=== PATIENT | male | born 1955 | race Caucasian/White ===

== ENCOUNTER 2018-06-04 14:08 | Outpatient (CLI) | payer OTHER | END 2018-06-04 14:09 | disposition critical access hospital (66) | LOC: EMS 14:08 | PROVIDERS: ATTEND Surgery | DX: M79.651 Pain in right thigh (principal); W18.30XA Fall on same level, unspecified, initial encounter; Z91.81 History of falling; Y92.039 Unspecified place in apartment as the place of occurrence of the external cause | CPT/HCPCS: A0425; A0429 ==

== ENCOUNTER 2018-06-04 14:30 | Emergency (ER) | payer OTHER ==
[2018-06-04 14:48] VITALS: BP 143/72
[2018-06-04] MEDS ORDERED: KETOROLAC 60 MG/2 ML VIAL IVP STA (14:59)
--- NOTE | 2018-06-04 15:04 | ED Physician Documentation ---
PD HPI Fall - Stated complaint Stated Complaint: GLF - Chief complaint Chief Complaint: Ext Problem - History obtained from History obtained from: Patient, EMS - History of Present Illness Mechanism of injury: Tripped Fall distance: Standing position Where injury occurred: Home Timing - onset: Today Injury(ies) location: Back, Right Lower Extremity Quality of pain: Pain Associated symptoms: No: LOC, AMS, Amnesia Symptoms improve with: Rest, Ice, Meds Worsens with: Movement, Palpation Contributing factors: No: Anticoagulated Similar symptoms before: Has not had sx before Recently seen: Clinic - Additional information Additional information: 63-year-old morbidly obese male with a injury he is off balance on a normal basis and uses a walker for mobilization. He has had a fall about 2-3 weeks ago at that time he was evaluated by his clinician at the [facility]. X-rays were done of the right hip. He has had another fall last night and again reinjured the right hip area today he has had a third fall and now is unable to walk secondary to pain in the right hip and right lower back. He states that he was not otherwise ill recently and he does state that he drinks quite a bit of water and he thinks that he has had an increase in the amount of time she is having to urinate. He denies any history of diabetes. Review of Systems Constitutional: denies: Fever Eyes: denies: Decreased vision Ears: denies: Ear pain Nose: denies: Congestion Throat: denies: Sore throat Cardiac: denies: Chest pain / pressure, Palpitations Respiratory: denies: Dyspnea, Cough GI: denies: Abdominal Pain, Nausea, Vomiting, Constipation, Diarrhea : reports: Frequency. denies: Dysuria Skin: denies: Rash Musculoskeletal: reports: Back pain, Extremity pain, Joint pain, Pain with weight bearing. denies: Neck pain, Joint swelling Neurologic: denies: Generalized weakness, Focal weakness, Numbness PD PAST MEDICAL HISTORY - Past Medical History Cardiovascular: None Respiratory: CPAP use Endocrine/Autoimmune: None GI: GERD : None HEENT: None Psych: None Musculoskeletal: Chronic back pain Derm: None - Past Surgical History Past Surgical History: Yes - Present Medications Home Medications: Ambulatory Orders Medication Instructions Recorded Confirmed Ibuprofen [Motrin] 400 mg PO Q6H PRN 01/31/14 01/31/14 Omeprazole [PriLOSEC] 20 mg PO DAILY 01/31/14 01/31/14 HYDROcod/ACETAM 5/325 [[place] 5/325] 1 - 2 ea PO Q6H PRN #15 tablet 06/04/18 - Allergies Allergies/Adverse Reactions: Allergies Allergy/AdvReac Type Severity Reaction Status Date / Time codeine Allergy Intermediate Unknown Verified 02/01/14 00:58 - Social History Does the pt smoke?: No Smoking Status: Never smoker Does the pt drink ETOH?: No Does the pt have substance abuse?: No - POLST Patient has POLST: Yes POLST Status: DNR PD ED PE NORMAL - Vitals Vital signs reviewed: Yes (hypertensive ) - General General: No acute distress, Well developed/nourished - HEENT HEENT: Atraumatic, PERRL, EOMI - Neck Neck: Supple, no meningeal sign - Cardiac Cardiac: RRR, No murmur - Respiratory Respiratory: No respiratory distress, Clear bilaterally - Abdomen Abdomen: Soft, Non tender, Other (obese) - Back Back: No CVA TTP, Other (There it tenderness to the paraspinous muscles of the lower right lumbar spine. ) - Derm Derm: Normal color, Warm and dry, No rash - Extremities Extremities: No deformity, No edema, Other (there is pain over the right trochanter and pain with movement of the hip joint with ) - Neuro Neuro: Alert and oriented X 3, system support developer 2-12 intact, No motor deficit, No sensory deficit, Normal speech Eye Opening: Spontaneous Motor: Obeys Commands Verbal: Oriented GCS Score: 15 - Psych Psych: Normal mood, Normal affect Results - Vitals Vitals: Vital Signs - 24 hr 06/04/18 14:44 Temperature 36.7 C Heart Rate 90 Respiratory 20 Rate Blood Pressure 143/72 H O2 Saturation 96 Oxygen O2 Source Room air - Labs Labs: Laboratory Tests 06/04/18 06/04/18 06/04/18 15:15 15:15 15:15 WBC 9.9 RBC 5.34 Hgb 15.2 Hct 45.4 MCV 84.9 MCH 28.4 MCHC 33.4 RDW 15.2 H Plt Count 234 MPV 8.0 Neut # (Auto) 6.5 Lymph # (Auto) 2.2 Quay # (Auto) 0.8 Eos # (Auto) 0.4 Baso # (Auto) 0.1 Absolute Nucleated RBC 0.00 Nucleated RBC % 0.0 Sodium 137 Potassium 3.8 Chloride 104 Carbon Dioxide 26 Anion Gap 7.0 BUN 11 Creatinine 1.1 Estimated GFR (MDRD) 67 L Glucose 152 H Calcium 8.8 Total Bilirubin 0.6 AST 19 ALT 16 Alkaline Phosphatase 78 Troponin I < 0.04 Total Protein 6.7 Albumin 3.5 Globulin 3.2 Albumin/Globulin Ratio 1.1 Lipase 25 Urine Color Urine Clarity Urine pH Ur Specific Luther Urine Protein Urine Glucose (UA) Urine Ketones Urine Occult Blood Urine Nitrite Urine Bilirubin Urine Urobilinogen Ur Leukocyte Esterase Ur Microscopic Review Urine Culture Comments 06/04/18 15:30 WBC RBC Hgb Hct MCV MCH MCHC RDW Plt Count MPV Neut # (Auto) Lymph # (Auto) Quay # (Auto) Eos # (Auto) Baso # (Auto) Absolute Nucleated RBC Nucleated RBC % Sodium Potassium Chloride Carbon Dioxide Anion Gap BUN Creatinine Estimated GFR (MDRD) Glucose Calcium Total Bilirubin AST ALT Alkaline Phosphatase Troponin I Total Protein Albumin Globulin Albumin/Globulin Ratio Lipase Urine Color YELLOW Urine Clarity CLEAR Urine pH 6.0 Ur Specific Luther <=1.005 Urine Protein NEGATIVE Urine Glucose (UA) NEGATIVE Urine Ketones NEGATIVE Urine Occult Blood TRACE-LYSE Urine Nitrite NEGATIVE Urine Bilirubin NEGATIVE Urine Urobilinogen 0.2 (NORMAL) Ur Leukocyte Esterase NEGATIVE Ur Microscopic Review NOT INDICATED Urine Culture Comments NOT INDICATED - Rads (name of study) right hip Radiology: Prelim report reviewed (Impression: No fracture or subluxation.), EMP read indepedently, See rad report lumbar spine Radiology: Prelim report reviewed (Impression: No fracture or subluxation of lumbar spine.), EMP read indepedently, See rad report PD MEDICAL DECISION MAKING - ED course Complexity details: reviewed old records, reviewed results, re-evaluated patient , considered differential, d/w patient, d/w family ED course: The patient has improvement with the use of toradal and he has no fractures of the lumbar spine or hip. He is able to stand, pivot and move without much pain. - Sepsis Event Vital Signs: Vital Signs - 24 hr 06/04/18 14:44 Temperature 36.7 C Heart Rate 90 Respiratory 20 Rate Blood Pressure 143/72 H O2 Saturation 96 Oxygen O2 Source Room air Departure - Departure Disposition: 01 Home, Self Care Clinical Impression: Lumbar contusion Qualifiers: Encounter type: initial encounter Qualified Code(s): S30.0XXA - Contusion of lower back and pelvis, initial encounter Contusion of right hip Qualifiers: Encounter type: initial encounter Qualified Code(s): S70.01XA - Contusion of right hip, initial encounter Condition: Stable Instructions: ED Sprain Strain Lumbar, ED Contusion Hip Follow-Up: Anna Cotter MD [Primary Care Provider] - Prescriptions: HYDROcod/ACETAM 5/325 [[place] 5/325] 1 - 2 ea PO Q6H PRN #15 tablet PRN Reason: Pain Discharge Date/Time: 06/04/18 17:45
[2018-06-04 15:21] LABS: BASOPHILS # (AUTO) 0.1 10^3/uL (0.0-0.1); BASOPHILS % (AUTO) 0.7 %; EOSINOPHILS # (AUTO) 0.4 10^3/uL (0.0-0.7); EOSINOPHILS % (AUTO) 3.6 %; HGB - HEMOGLOBIN 15.2 g/dL (14.0-18.0); LYMPHOCYTES # (AUTO) 2.2 10^3/uL (1.5-3.5); LYMPHOCYTES % (AUTO) 22.3 %; MEAN CORPUSCULAR HEMOGLOBIN 28.4 pg (27.0-31.0); MEAN CORPUSCULAR HGB CONC 33.4 g/dL (32.0-36.0); MEAN CORPUSCULAR VOLUME 84.9 fL (80.0-94.0); MONOCYTES # (AUTO) 0.8 10^3/uL (0.0-1.0); MONOCYTES % (AUTO) 8.3 %; NEUTROPHILS # (AUTO) 6.5 10^3/uL (1.5-6.6); NEUTROPHILS % (AUTO) 65.1 %; PLT - PLATELET COUNT 234 10^3/uL (130-450); RED BLOOD COUNT 5.34 10^6/uL (4.70-6.10); RED CELL DISTRIBUTION WIDTH 15.2 % (12.0-15.0); WHITE BLOOD COUNT 9.9 x10^3/uL (4.8-10.8)
[2018-06-04 15:34] LABS: ALBUMIN 3.5 g/dL (3.2-5.5); ALBUMIN/GLOBULIN RATIO 1.1 (1.0-2.2); BILIRUBIN,TOTAL 0.6 mg/dL (0.2-1.0); CALCIUM 8.8 mg/dL (8.5-10.3); CREATININE 1.1 mg/dL (0.6-1.2); TOTAL PROTEIN 6.7 g/dL (6.7-8.2)
[2018-06-04 15:37] LABS: BILIRUBIN,URINE NEGATIVE (NEGATIVE); GLUCOSE, URINE (UA) NEGATIVE (NEGATIVE); KETONES,URINE (UA) NEGATIVE (NEGATIVE); LEUKOCYTE ESTERASE, URINE NEGATIVE (NEGATIVE); NITRITE,URINE NEGATIVE (NEGATIVE); OCCULT BLOOD,URINE TRACE-LYSE (NEGATIVE); PROTEIN,URINE NEGATIVE (NEGATIVE); UROBILINOGEN,URINE 0.2 (NORMAL) E.U./dL (NORMAL)
[2018-06-04 15:40] LABS: CLARITY,URINE CLEAR (CLEAR)
--- NOTE | 2018-06-04 16:43 | XRAY Report ---
Procedure Date: 06/04/2018 Accession Number: [id number] / [id number] Procedure: XR - Lumbar Spine 2 View CPT Code: FULL RESULT: EXAM: LUMBOSACRAL SPINE RADIOGRAPHY EXAM DATE: 06/04/2018 04:22 PM. CLINICAL HISTORY: GLF right sided lumbar pain. COMPARISONS: None. TECHNIQUE: 2 views. FINDINGS: Alignment: Normal. No spondylolisthesis or scoliosis. Bones: Five [id number] lumbar vertebral bodies are present. Vertebral bodies appear normal in height. No fracture. Disks: There is mild disk height loss at L5-S1. There is mild disk osteophyte spurring. Facets: Satisfactory alignment. Sacroiliac Joints: Unremarkable. Soft Tissues: Normal. The visualized bowel gas pattern is normal. IMPRESSION: No fracture or subluxation of lumbar spine. RADIA
--- NOTE | 2018-06-04 16:50 | XRAY Report ---
Procedure Date: 06/04/2018 Accession Number: [id number] / [id number] Procedure: XR - Hip w/Pelvis 2-3V RT CPT Code: FULL RESULT: EXAM: RIGHT HIP AND PELVIS RADIOGRAPHY EXAM DATE: 06/04/2018 04:22 PM. HISTORY: GLF right hip pain. COMPARISONS: None. TECHNIQUE: 1 view of the pelvis and 1 view of the hip. FINDINGS: Bones: Normal. No fracture or bone lesion. Joints: The bilateral hip, pubis symphysis, and sacroiliac joints are preserved. Soft Tissues: Normal. No soft tissue swelling. IMPRESSION: No fracture or subluxation. RADIA
[2018-06-04] MEDS ORDERED: HYDROcod/ACET 5/325 Prepack 4 PO STA (17:42)
== END 2018-06-04 17:45 | disposition home or self-care (01) ==
LOC: EDUNIT# → SUPCPDRO 14:30 → ED 14:30
DX: S30.0XXA Contusion of lower back and pelvis, initial encounter (principal); S70.01XA Contusion of right hip, initial encounter; X50.9XXA Other and unspecified overexertion or strenuous movements or postures, initial encounter; Y93.E1 Activity, personal bathing and showering; Z91.81 History of falling
CPT/HCPCS: 36415; 72100; 80053; 81001; 81003; 83690; 84484; 85025; 87086; 96374; 99283

== ENCOUNTER 2019-04-06 09:10 | Emergency (ER) | payer MEDICARE ==
[2019-04-06 09:17] VITALS: BP 136/76
[2019-04-06] MEDS ORDERED: HYDROcod/ACETAM 5/325 MG TABLET PO STA (09:41)
[2019-04-06] MEDS ORDERED: AMOX/CLAV 875 MG/125 MG TABLET PO STA (09:41)
--- NOTE | 2019-04-06 09:44 | ED Physician Documentation ---
PD HPI HEENT - Stated complaint Stated Complaint: LT SIDE OF HEAD PAIN, FEVER - Chief complaint Chief Complaint: Heent - History obtained from History obtained from: Patient - History of Present Illness Timing - onset: How many days ago (3) Timing - duration: Days (3) Timing - details: Still present Location: Left ear Associated symptoms: Fever, Congestion, Swollen nodes, Facial swelling Similar symptoms before: Has not had sx before - Additional information Additional information: The patient is a 63-year-old male who presents with left earache and pain on the left side of his face starting 3 days ago, and getting progressively worse. He noticed a low-grade fever last night. He denies headache, toothache, or sore throat. He has noticed slight congestion. He denies history of similar symptoms in the past. Review of Systems Constitutional: reports: Fever Eyes: denies: Irritation Ears: reports: Ear pain (left) Nose: reports: Congestion Throat: denies: Sore throat Cardiac: denies: Chest pain / pressure Respiratory: denies: Dyspnea, Cough GI: denies: Abdominal Pain, Nausea, Vomiting Skin: denies: Rash Musculoskeletal: denies: Neck pain, Back pain Neurologic: denies: Headache PD PAST MEDICAL HISTORY - Past Medical History Cardiovascular: None Respiratory: CPAP use Endocrine/Autoimmune: None GI: GERD : None HEENT: None Psych: None Musculoskeletal: Chronic back pain Derm: None - Past Surgical History Past Surgical History: Yes - Present Medications Home Medications: Ambulatory Orders Medication Instructions Recorded Confirmed Ibuprofen [Motrin] 400 mg PO Q6H PRN 01/31/14 01/31/14 Omeprazole [PriLOSEC] 20 mg PO DAILY 01/31/14 01/31/14 HYDROcod/ACETAM 5/325 [[place] 5/325] 1 - 2 ea PO Q6H PRN #15 tablet 06/04/18 Amox/Clav 875/125 [Augmentin] 1 each PO Q12H #14 tablet 04/06/19 Hydrocodone/Acetaminophen 1 - 2 each PO Q6H PRN #12 tablet 04/06/19 [Hydrocodon-Acetaminophen 5-325] Neomycin/Polymyx/Hc Otic Drops 4 drops LEFTEAR TID #1 bottle 04/06/19 [Cortisporin Ear Susp] - Allergies Allergies/Adverse Reactions: Allergies Allergy/AdvReac Type Severity Reaction Status Date / Time codeine Allergy Intermediate Unknown Verified 04/06/19 09:17 - Social History Does the pt smoke?: No Smoking Status: Never smoker Does the pt drink ETOH?: No Does the pt have substance abuse?: No - POLST Patient has POLST: Yes POLST Status: DNR PD ED PE NORMAL - Vitals Vital signs reviewed: Yes (normal) - General General: Alert and oriented X 3, Well developed/nourished, Other (Obese.) - HEENT HEENT: Atraumatic, Pharynx benign, Other (There is purulence behind the left tympanic membrane with loss of landmarks. There is also purulent debris within the left external ear canal. Hearing ability on the left is diminished compared to the right. Dentures.) - Neck Neck: Supple, no meningeal sign, Other (Mildly enlarged anterior cervical nodes on the left.) - Cardiac Cardiac: RRR - Respiratory Respiratory: No respiratory distress, Clear bilaterally - Abdomen Abdomen: Soft, Non tender - Derm Derm: No rash - Neuro Neuro: Alert and oriented X 3, Normal speech Results - Vitals Vitals: Vital Signs - 24 hr 04/06/19 09:14 Temperature 35.3 C L Heart Rate 85 Respiratory 20 Rate Blood Pressure 136/76 H O2 Saturation 96 Oxygen O2 Source Room air PD MEDICAL DECISION MAKING - ED course Complexity details: considered differential, d/w patient, d/w family ED course: The patient's presentation is most consistent with acute left otitis media as well as left otitis externa. His presentation does not suggest meningitis or peritonsillar abscess. Treatment in the emergency department included administration of Augmentin 1 tablet orally and Vicodin 1 tablet orally. He is being discharged with prescriptions for Augmentin, Cortisporin otic suspension, and Vicodin, 12 tablets. 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 Departure - Departure Disposition: 01 Home, Self Care Clinical Impression: Acute left otitis media Left otitis externa Qualifiers: Otitis externa type: unspecified type Chronicity: acute Qualified Code(s): H60.502 - Unspecified acute noninfective otitis externa, left ear Condition: Stable Health Concerns: ear infection Plan of Treatment: Augmentin; cortisporin otic suspension. Care Goals: resolution of infection Assessment: see above Instructions: ED Otitis Media Acute Adult, ED Otitis Externa Follow-Up: [facility] [Provider Group] Izzy Cotter ARNP [Primary Care Provider] - Prescriptions: Amox/Clav 875/125 [Augmentin] 1 each PO Q12H #14 tablet Hydrocodone/Acetaminophen [Hydrocodon-Acetaminophen 5-325] 1 - 2 each PO Q6H PRN #12 tablet PRN Reason: pain Neomycin/Polymyx/Hc Otic Drops [Cortisporin Ear Susp] 4 drops LEFTEAR TID #1 bottle Comments: Take Augmentin twice daily as prescribed. Put Cortisporin otic suspension in your left ear canal 3 times daily as prescribed. You can use ibuprofen, up to 800 mg 3 times daily for anti-inflammatory effect. You can use Vicodin as prescribed if needed for pain. Follow-up with your primary physician within 2 weeks. Call to schedule an appointment. Return to the emergency department if you develop increasing pain, or otherwise worsening symptoms.
== END 2019-04-06 09:59 | disposition home or self-care (01) ==
LOC: ED 09:10
DX: H66.92 Otitis media, unspecified, left ear (principal); H60.502 Unspecified acute noninfective otitis externa, left ear
CPT/HCPCS: 99283; A9270

== ENCOUNTER 2021-08-06 11:03 | Outpatient (CLI) | payer OTHER | END 2021-08-06 11:04 | disposition critical access hospital (66) | LOC: EMS 11:03 | DX: U07.1 COVID-19 (principal) | CPT/HCPCS: A0425; A0429 ==

== ENCOUNTER 2021-08-06 11:29 | Inpatient (IN) | payer MEDICARE, OTHER ==
[2021-08-06] MEDS ORDERED: DEXAMETHASONE 10 MG/ML VIAL IVP STA (11:42)
--- NOTE | 2021-08-06 11:47 | ED Physician Documentation ---
History of Present Illness - Stated complaint Stated Complaint: C+/SOA - History obtained from History obtained from: Patient, EMS - Additonal information Additional information: Is a 66-year-old male who presents via EMS for shortness of breath. The patient Sick with viral type symptoms for approximately a week and several days ago tested positive for coronavirus. He had been doing okay up until yesterday when he started to feel dizzy and weak and have chest tightness. He states he is not had an appetite and not been able to eat for several days. He has some dizziness at baseline due to a prior traumatic brain injury though states this is much more substantial. He was feeling chest tightness and shortness of breath today so EMS was called. On arrival he was 68% on room air, they placed him on 6 L nasal cannula and he went up into the 80s, ultimately requiring a nonrebreather to maintain saturations greater than 90%. He is currently 94% on 15 L nonrebreather. History of traumatic brain injury and GERD. He is only on omeprazole and occasional Tylenol at home. He is not typically on home oxygen. History of lung disease, diabetes, hypertension, heart disease.He is vaccinated with the single dose [employer] vaccine. Review of Systems Constitutional: reports: Fever, Chills, Myalgias, Fatigue Eyes: reports: Reviewed and negative Ears: reports: Reviewed and negative Nose: reports: Reviewed and negative Throat: reports: Reviewed and negative Cardiac: reports: Chest pain / pressure. denies: Palpitations, Pedal edema, Calf pain Respiratory: reports: Dyspnea, Cough. denies: Hemoptysis, Wheezing GI: reports: Other (Loss of appetite). denies: Abdominal Pain, Abdominal Swelling, Nausea, Vomiting, Constipation, Diarrhea : reports: Reviewed and negative Skin: reports: Reviewed and negative Musculoskeletal: reports: Reviewed and negative Neurologic: reports: Reviewed and negative, Other (History of TBI stable) Psychiatric: reports: Reviewed and negative Endocrine: reports: Reviewed and negative Immunocompromised: reports: Reviewed and negative PD PAST MEDICAL HISTORY - Past Medical History Past Medical History: Yes Cardiovascular: None Respiratory: CPAP use Neuro: Head injury, Other (Dizziness) Endocrine/Autoimmune: None GI: GERD : None HEENT: None Psych: None Musculoskeletal: Chronic back pain Derm: None - Past Surgical History Past Surgical History: Yes - Present Medications Home Medications: Ambulatory Orders Medication Instructions Recorded Confirmed Ibuprofen [Motrin] 400 mg PO Q6H PRN 01/31/14 01/31/14 Omeprazole [PriLOSEC] 20 mg PO DAILY 01/31/14 01/31/14 HYDROcod/ACETAM 5/325 [[place] 5/325] 1 - 2 ea PO Q6H PRN #15 tablet 06/04/18 Amox/Clav 875/125 [Augmentin] 1 each PO Q12H #14 tablet 04/06/19 Hydrocodone/Acetaminophen 1 - 2 each PO Q6H PRN #12 tablet 04/06/19 [Hydrocodon-Acetaminophen 5-325] Neomycin/Polymyx/Hc Otic Drops 4 drops LEFTEAR TID #1 bottle 04/06/19 [Cortisporin Ear Susp] - Allergies Allergies/Adverse Reactions: Allergies Allergy/AdvReac Type Severity Reaction Status Date / Time codeine Allergy Intermediate Unknown Verified 08/06/21 11:46 - Social History Does the pt smoke?: No Smoking Status: Never smoker Does the pt drink ETOH?: No Does the pt have substance abuse?: No - POLST Patient has POLST: Yes POLST Status: DNR PD ED PE NORMAL - Vitals Vital signs reviewed: Yes - General General: Alert and oriented X 3, No acute distress, Well developed/nourished - HEENT HEENT: Atraumatic, Moist mucous membranes, Pharynx benign - Neck Neck: Supple, no meningeal sign, No JVD - Cardiac Cardiac: RRR, No murmur, No rub - Respiratory Respiratory: Clear bilaterally, Other (Patient mildly tachypneic on 15 L nonrebreather) - Abdomen Abdomen: Normal bowel sounds, Soft, Non tender, Non distended, Other - Derm Derm: Normal color, Warm and dry, No rash - Extremities Extremities: No deformity, No tenderness to palpate, Normal ROM s pain, No edema, No calf tenderness / cord - Neuro Neuro: Alert and oriented X 3, No motor deficit, No sensory deficit, Normal speech Eye Opening: Spontaneous Motor: Obeys Commands Verbal: Oriented GCS Score: 15 - Psych Psych: Normal mood, Normal affect Results - Vitals Vitals: Vital Signs - 24 hr 08/06/21 08/06/21 11:42 12:36 Temperature 36.9 C Heart Rate 85 78 Respiratory 25 H 32 H Rate Blood Pressure 127/62 120/62 O2 Saturation 92 91 L Oxygen O2 Source Room air Oxygen Flow Rate 15 - Labs Labs: Laboratory Tests 08/06/21 08/06/21 08/06/21 12:05 12:05 12:05 WBC 8.7 RBC 5.62 Hgb 15.8 Hct 48.0 MCV 85.4 MCH 28.1 MCHC 32.9 RDW 15.9 H Plt Count 211 MPV 10.9 Neut # (Auto) 7.4 H Lymph # (Auto) 0.9 L [place] # (Auto) 0.3 Eos # (Auto) 0.0 Baso # (Auto) 0.0 Absolute Nucleated RBC 0.00 Nucleated RBC % 0.0 D-Dimer Sodium 138 Potassium 3.6 Chloride 100 L Carbon Dioxide 25 Anion Gap 13.0 BUN 22 H Creatinine 1.3 H Estimated GFR (MDRD) 55 L Glucose 114 H Calcium 8.1 L Total Bilirubin 0.6 AST 132 H ALT 69 H Alkaline Phosphatase 97 Troponin I High Sens C-Reactive Protein 26.6 H B-Natriuretic Peptide 51 Total Protein 6.9 Albumin 3.0 L Globulin 3.9 Albumin/Globulin Ratio 0.8 L Lipase 35 08/06/21 08/06/21 12:05 12:05 WBC RBC Hgb Hct MCV MCH MCHC RDW Plt Count MPV Neut # (Auto) Lymph # (Auto) [place] # (Auto) Eos # (Auto) Baso # (Auto) Absolute Nucleated RBC Nucleated RBC % D-Dimer 273.5 H Sodium Potassium Chloride Carbon Dioxide Anion Gap BUN Creatinine Estimated GFR (MDRD) Glucose Calcium Total Bilirubin AST ALT Alkaline Phosphatase Troponin I High Sens 18.9 C-Reactive Protein B-Natriuretic Peptide Total Protein Albumin Globulin Albumin/Globulin Ratio Lipase PD MEDICAL DECISION MAKING - ED course Complexity details: reviewed results, re-evaluated patient, considered differential, d/w patient ED course: This is a 66-year-old male with past medical history of obesity, GERD and a prior traumatic brain injury who presents with known Covid infection. Is requiring 15 L nonrebreather to maintain a saturation greater than 94%. Labs are stable. Requires admission to the hospital. We have started him on Decadron 10 mg IV push. I discussed with pharmacist and remdesivir is started as an inpatient at this facility therefore will await loading dose until he is admitted. Patient kindly accepted by Dr. Nchotu. Departure - Departure Disposition: 66 [facility] DC/Xfer Clinical Impression: Pneumonia due to COVID-19 virus, Acute respiratory failure due to COVID-19
--- NOTE | 2021-08-06 12:02 | XRAY Report ---
PROCEDURE: Chest 1 View X-Ray INDICATIONS: chest pain TECHNIQUE: One view of the chest was acquired. COMPARISON: None FINDINGS: Surgical changes and devices: None. Lungs and pleura: There is blunting of bilateral costophrenic angles suggestive of small bilateral pl eural effusion. Extensive airspace opacities throughout bilateral lung avery are seen. No gross pneu mothorax. Mediastinum: Mediastinal contours appear normal. Heart size is normal. Bones and chest wall: No suspicious bony lesions. Overlying soft tissues appear unremarkable. IMPRESSION: Finding is suggestive of extensive bilateral pulmonary infiltrates likely from COVID-19 infection. Sm all bilateral pleural effusion. No pneumothorax. Reviewed by: Adriel El MD on 08/06/2021 12:00 PM PDT Approved by: Adriel El MD on 08/06/2021 12:00 PM PDT Station ID: [id number]
[2021-08-06 12:23] LABS: BASOPHILS % (AUTO) 0.1 %; EOSINOPHILS % (AUTO) 0.1 %; HGB - HEMOGLOBIN 15.8 g/dL (14.0-18.0); LYMPHOCYTES # (AUTO) 0.9 10^3/uL (1.5-3.5); LYMPHOCYTES % (AUTO) 10.7 %; MEAN CORPUSCULAR HEMOGLOBIN 28.1 pg (27.0-31.0); MEAN CORPUSCULAR HGB CONC 32.9 g/dL (32.0-36.0); MEAN CORPUSCULAR VOLUME 85.4 fL (80.0-94.0); MEAN PLATELET VOLUME 10.9 fL (7.4-11.4); MONOCYTES # (AUTO) 0.3 10^3/uL (0.0-1.0); MONOCYTES % (AUTO) 3.3 %; NEUTROPHILS # (AUTO) 7.4 10^3/uL (1.5-6.6); NEUTROPHILS % (AUTO) 85.5 %; PLT - PLATELET COUNT 211 10^3/uL (130-450); RED BLOOD COUNT 5.62 10^6/uL (4.70-6.10); RED CELL DISTRIBUTION WIDTH 15.9 % (12.0-15.0); WHITE BLOOD COUNT 8.7 x10^3/uL (4.8-10.8)
[2021-08-06 12:59] LABS: ALBUMIN/GLOBULIN RATIO 0.8 (1.0-2.2); BILIRUBIN,TOTAL 0.6 mg/dL (0.2-1.0); CALCIUM 8.1 mg/dL (8.5-10.3); CREATININE 1.3 mg/dL (0.6-1.2); CRP - C-REACTIVE PROTEIN 26.6 mg/dL (0-1.0); POTASSIUM 3.6 mmol/L (3.5-5.0); TOTAL PROTEIN 6.9 g/dL (6.7-8.2)
[2021-08-06] MEDS ORDERED: ACETAMINOPHEN 325 MG TABLET PO PRN (13:14)
[2021-08-06] MEDS ORDERED: ONDANSETRON 4 MG/2 ML VIAL IVP PRN (13:14)
--- NOTE | 2021-08-06 13:19 | HISTORY & PHYSICAL EXAMINATION ---
Chief Complaint - Chief Complaint Chief Complaint: dyspnea, weakness History of Present Illness - Ad[facility] - History Obtained From Records Reviewed: yes History obtained from: patient - History of Present Illness HPI Comment/Other: Patient is a 66-year-old morbidly obese male with medical history significant f or traumatic brain injury in the past who presented to the ED with complaint of dyspnea and weakness. He has been having symptoms consistent with COVID-19 infection. This include difficulty breathing, minimally productive cough, loss of smell, loss of taste and generalized weakness over the past 4-5 days. He finally came to the ED today because he was unable to get up from bed. He was vaccinated with Olu & Olu vaccine. He had been diagnosed with COVID-19 for a few days now. His is also sick with Covid at home. In the ED he required 15 L on a nonrebreather to maintain his oxygen around 92%. He had a chest x-ray done which showed Pulmonary infiltrates and small bilateral pleural effusion. He was presented for admission for further treatment. Upon arrival to the [facility] floor the patient's oxygen saturation was in the 70s despite 15 L of oxygen via Nonrebreather as a result he was immediately switched to high flow nasal cannula. History - Past Medical History Cardiovascular: reports: None Respiratory: reports: CPAP use Neuro: reports: CVA (dizziness as residual), Head injury, Other (Dizziness) Endocrine/Autoimmune: reports: None GI: reports: GERD : reports: None HEENT: reports: None Psych: reports: None Musculoskeletal: reports: Chronic back pain Derm: reports: None MRSA Hx?: Yes - Past Surgical History Ortho: reports: Shoulder arthroplasty (left. following a shrapnel injury), Other (due to left knee injury) - Family & Social History Family History Comment/Other: Patient does not know his biological family history because he is adopted. His 2 children are healthy. Living arrangement: At home Social History Notes: He does not consume alcohol, tobacco products or substances. He lives at home with his . He is not on a . - POLST Patient has POLST: Yes POLST Status: DNR Meds/Allgy - Home Medications Home Medications: Ambulatory Orders Medication Instructions Recorded Confirmed Omeprazole [PriLOSEC] 20 mg PO DAILY 01/31/14 01/31/14 - Allergies Allergies/Adverse Reactions: Allergies Allergy/AdvReac Type Severity Reaction Status Date / Time codeine Allergy Intermediate Unknown Verified 08/06/21 11:46 Review of Systems - Constitutional Constitutional: reports: Fever, Weakness - Eyes Eyes: denies: Pain - Ears, Nose & Throat Ears, Nose & Throat: denies: Ear pain, Sore throat - Cardiovascular Cariovascular: reports: Lightheadedness. denies: Chest pain, Edema - Respiratory Respiratory: reports: Cough, Sputum production, SOB at rest, SOB with exertion - Gastrointestinal Gastrointestinal: denies: Abdominal pain, Abdominal distention, Diarrhea, N ausea, Vomiting - Genitourinary Genitourinary: denies: Dysuria, Frequency, Urgency, Hematuria, Incontinence - Musculoskeletal Musculoskeletal: reports: Back pain (chronic) - Integumentary Integumentary: denies: Rash, Pruritis, Lesions - Neurological Neurological: reports: Dizziness (chronic) - Psychiatric Psychiatric: denies: Depression, Anxiety - Endocrine Endocrine: denies: Polyuria, Polydypsia - Hematologic/Lymphatic Hematologic/Lymphatic: denies: Anemia, Bruising Prior Level of Functionality: Patient is independent of activities of daily living. He gets around the house using a walker due to chronic dizziness from a traumatic brain injury. He lives at home with his . He is an [employer] - Vital Signs Vital Signs: Vital Signs x48h Temp Pulse Resp BP Pulse Ox 08/06/21 13:00 36.8 C 78 19 125/68 92 08/06/21 12:36 78 32 H 120/62 91 L 08/06/21 11:42 36.9 C 85 25 H 127/62 92 - Physical Exam General Appearance: positive: Alert, Mild distress (respiratory distress) Eyes Bilateral: positive: PERRL, EOMI ENT: positive: No signs of dehydration Neck: positive: No JVD, Trachea midline Respiratory: positive: Chest non-tender, Other (Bilateral crackles) Cardiovascular: positive: Regular rate & rhythm, No murmur Abdomen: positive: Non-tender, No organomegaly, Nml bowel sounds. negative: Guarding, Rebound Back: positive: Nml inspection Skin: positive: Color nml, No rash, Warm, Dry Extremities: positive: Non-tender, Full ROM, Nml appearance, No pedal edema Neurologic/Psychiatric: positive: Oriented x3, Mood/affect nml Conclusion/Plan - Problem List (1) Acute respiratory failure with hypoxia Conclusion/Plan: This is secondary to COVID-19 pneumonia. Patient is currently on high flow nasal cannula 60 L at 100%. Oxygen saturation is currently between 90 to 93%. He was given dexamethasone 10 mg IV x1 in the ED. We will continue dexamethasone 6 mg IV daily for 9 more days. Remdesivir was started today. We will continue for 4 more days. (2) Pneumonia due to COVID-19 virus Conclusion/Plan: Patient had the Olu & Olu vaccine Patient is currently on high flow nasal cannula 60 L at 100%. Oxygen saturation is currently between 90 to 93%. He was given dexamethasone 10 mg IV x1 in the ED. We will continue dexamethasone 6 mg IV daily for 9 more days. Remdesivir was started today. We will continue for 4 more days. Lovenox 40 mg subcu twice daily for DVT prophylaxis. (3) Acute kidney injury Conclusion/Plan: Etiology undetermined. Creatinine was 1.3 with eGFR of 55 Monitor. If elevated with morning labs will initiate gentle hydration. (4) Elevated liver enzymes Conclusion/Plan: Likely secondary to COVID-19 infection. AST was 132 and ALT 69. We will recheck with a.m. labs. If further elevated will consider getting an ultrasound of the abdomen. (5) Obstructive sleep apnea on CPAP Conclusion/Plan: Patient uses CPAP at home. (6) Chronic back pain Conclusion/Plan: Pain management as needed - Lab Results Fish Bones: 08/06/21 12:05 08/06/21 12:05 Core Measures - Anticipated LOS I expect patient to be DC'd or transferred within 96 hours.: Yes - DVT/VTE - Prophylaxis VTE/DVT Device ordered at admit?: Yes VTE/DVT Prophylaxis med ordered at admit?: Yes - Stroke - Rehab Assessment Rehab services assessment to be ordered?: Yes
[2021-08-06] MEDS ORDERED: REMDESIVIR 100MG VIAL 200 MG in SODIUM CHLORIDE 0.9% 250 ML IV ONE (16:00)
[2021-08-06] MEDS: SODIUM CHLORIDE FLUSH 0.9% 10 ML SYRINGE IVP SCH (16:30)
[2021-08-06] MEDS: ENOXAPARIN 40 MG/0.4 ML SYRINGE SUBQ SCH ×2 (17:22→21:11)
[2021-08-06] MEDS ORDERED: BENZOCAINE/MENTHOL LOZENGE MM PRN (17:29)
[2021-08-06] MEDS: guaiFENesin/DEXTROMETHORPHAN 10 ML UDC PO PRN (21:11)
[2021-08-07] MEDS: SODIUM CHLORIDE FLUSH 0.9% 10 ML SYRINGE IVP SCH ×7 (05:54→20:54)
[2021-08-07 07:07] LABS: BILIRUBIN,URINE NEGATIVE (NEGATIVE); GLUCOSE, URINE (UA) NEGATIVE (NEGATIVE); KETONES,URINE (UA) 15 mg/dL (NEGATIVE); LEUKOCYTE ESTERASE, URINE NEGATIVE (NEGATIVE); NITRITE,URINE NEGATIVE (NEGATIVE); OCCULT BLOOD,URINE SMALL (NEGATIVE); PROTEIN,URINE 100 mg/dL (NEGATIVE); UROBILINOGEN,URINE 1 (NORMAL) E.U./dL (NORMAL)
[2021-08-07 07:29] LABS: BACTERIA,URINE Few /HPF (None Seen); CLARITY,URINE CLEAR (CLEAR); SQUAMOUS EPITHELIAL CELL,UR RARE Squamous (<= Few); WBC,URINE 0-3 /HPF (0-3)
--- NOTE | 2021-08-07 07:54 | PROVIDER PROGRESS NOTE ---
Assessment/Plan - Problem List (1) Acute respiratory failure with hypoxia Assessment/Plan: This is secondary to COVID-19 pneumonia. Patient's oxygen saturation dropped precipitously overnight into the 60s. As a result he was moved to the ICU and placed on the BiPAP. He is currently on an FiO2 of 95% on the BiPAP with his oxygen saturation at 93%. Remdesivir day 2. Dexamethasone day 11/26 (2) Pneumonia due to COVID-19 virus Assessment/Plan: Patient's oxygen saturation dropped precipitously overnight into the 60s. As a result he was moved to the ICU and placed on the BiPAP. He is currently on an FiO2 of 95% on the BiPAP with his oxygen saturation at 93%. Remdesivir day 2. Dexamethasone day 11/26 Lovenox 40 mg subcu twice daily for DVT prophylaxis. (3) Acute kidney injury Assessment/Plan: Improved/Resolved. Creatinine today is 1.0 with an estimated GFR of 74 (4) Elevated liver enzymes Assessment/Plan: Improving Likely secondary to COVID-19 infection. AST:32>111 ALT:69>63 Anticipate further improvement (5) Obstructive sleep apnea on CPAP Assessment/Plan: Currently on bipap (6) Chronic back pain Assessment/Plan: Pain management as needed - Current Meds Current Meds: Current Medications Generic Name Dose Route Start Last Admin Trade Name Freq PRN Reason Stop Dose Admin Enoxaparin Sodium 40 mg 08/06/21 16:00 08/06/21 21:11 Enoxaparin 40 Mg/0.4 Ml Syringe SUBQ 40 mg BID SHAUN Administration Guaifenesin 10 ml 08/06/21 18:26 08/06/21 21:11 Guaifenesin/Dextromethorphan 10 Ml Udc PO 10 ml Q6HR PRN Administration Cough Sodium Chloride 10 ml 08/06/21 17:00 08/07/21 05:54 Sodium Chloride Flush 0.9% 10 Ml Syringe IVP Not Given 0100,0900,1700 SHAUN Sodium Chloride 10 ml 08/07/21 01:00 08/07/21 05:54 Sodium Chloride Flush 0.9% 10 Ml Syringe IVP 10 ml 0100,0900,1700 SHAUN Administration Throat Lozenges 1 lozenge 08/06/21 17:29 08/06/21 21:11 Benzocaine/Menthol Lozenge MM 1 lozenge Q2HR PRN Administration Throat pain - Lab Result Fish Bone Diagrams: 08/07/21 08:12 08/07/21 08:12 - Additional Planning My Orders: My Active Orders 08/06/21 13:14 IV Insert [RC] PRN Telemetry- [RC] Q4HR Acetaminophen [Tylenol] 650 mg PO Q4HR PRN Ondansetron Inj [Zofran Inj] 4 mg IVP Q6HR PRN Sodium Chloride Flush 0.9% [Normal Saline Flush 0.9%] 10 ml IVP PRN PRN 08/06/21 13:15 Activity Orders [RC] Q2HR Initiate Bowel Care Protocol [RC] .protocol Initiate Flu Vaccine Screening [RC] ONCE Initiate Line Care Protocol [RC] QSHIFT Initiate Personal Care Protoco [RC] .protocol Initiate Pneumonia Vaccine Scr [RC] ONCE Vital Signs [RC] Q4HR Code Status [OTHERS] Routine Condition of Patient [OTHERS] Routine DVT Prophylaxis [OTHERS] Routine 08/06/21 13:17 SCDs [RC] QSHIFT 08/06/21 16:00 Enoxaparin [Lovenox] 40 mg SUBQ BID 08/06/21 Dinner Regular Diet [DIET] 08/06/21 17:00 Sodium Chloride Flush 0.9% [Normal Saline Flush 0.9%] 10 ml IVP 0100,0900,1700 08/06/21 17:29 Benzocaine/Menthol [Cepacol] 1 lozenge MM Q2HR PRN 08/06/21 18:26 guaiFENesin/DEXTROMETHORPHAN [Robitussin Dm] 10 ml PO Q6HR PRN 08/07/21 05:00 CBC - COMP BLD CT W/AUTO DIFF [HEME] DAILYLAB COMPREHENSIVE METABOLIC PANEL [CHEM] DAILYLAB 08/07/21 09:00 Remdesivir 100Mg Vial [Veklury] 100 mg Sodium Chloride 0.9% 100Ml [Normal Saline 0.9% 100Ml] 100 ml IV DAILY dexAMETHasone [Decadron] 6 mg IVP DAILY 08/08/21 05:00 BMP - BASIC METABOLIC PANEL [CHEM] DAILYLAB CBC - COMP BLD CT W/AUTO DIFF [HEME] DAILYLAB 08/09/21 05:00 BMP - BASIC METABOLIC PANEL [CHEM] DAILYLAB CBC - COMP BLD CT W/AUTO DIFF [HEME] DAILYLAB 08/10/21 05:00 BMP - BASIC METABOLIC PANEL [CHEM] DAILYLAB CBC - COMP BLD CT W/AUTO DIFF [HEME] DAILYLAB 08/11/21 05:00 BMP - BASIC METABOLIC PANEL [CHEM] DAILYLAB CBC - COMP BLD CT W/AUTO DIFF [HEME] DAILYLAB 08/12/21 05:00 BMP - BASIC METABOLIC PANEL [CHEM] DAILYLAB CBC - COMP BLD CT W/AUTO DIFF [HEME] DAILYLAB 08/13/21 05:00 BMP - BASIC METABOLIC PANEL [CHEM] DAILYLAB CBC - COMP BLD CT W/AUTO DIFF [HEME] DAILYLAB 08/14/21 05:00 BMP - BASIC METABOLIC PANEL [CHEM] DAILYLAB Subjective - Subjective Patient Reports: Other (Patient became hypoxic with oxygen saturation dropping into the 60s overnight. As a result he was moved to the ICU and BiPAP was initiated. Currently he appears comfortable on BiPAP with mentation intact. He reports breathing better than at time of admission.) Objective Vital Signs: Vital Signs - 24 hr 08/06/21 08/06/21 08/06/21 11:42 12:36 13:00 Temperature 36.9 C 36.8 C Heart Rate 85 78 78 Heart Rate [ Brachial] Respiratory 25 H 32 H 19 Rate Blood Pressure 127/62 120/62 125/68 Blood Pressure [Left Brachial artery] Blood Pressure [Right Brachial artery] O2 Saturation 92 91 L 92 08/06/21 08/06/21 08/06/21 13:30 14:00 16:26 Temperature 36.9 C 37.7 C Heart Rate 79 79 Heart Rate [ 76 Brachial] Respiratory 20 25 H 21 Rate Blood Pressure 129/74 124/61 Blood Pressure [Left Brachial artery] Blood Pressure 98/75 [Right Brachial artery] O2 Saturation 89 L 89 L 93 08/06/21 08/07/21 08/07/21 20:56 00:22 02:10 Temperature 37 C 37 C Heart Rate 76 Heart Rate [ 80 81 Brachial] Respiratory 28 H 26 H Rate Blood Pressure Blood Pressure 124/61 [Left Brachial artery] Blood Pressure 144/86 H [Right Brachial artery] O2 Saturation 88 L 83 L 08/07/21 08/07/21 08/07/21 04:24 05:00 06:10 Temperature Heart Rate 76 70 Heart Rate [ 74 Brachial] Respiratory 23 Rate Blood Pressure Blood Pressure 105/65 [Left Brachial artery] Blood Pressure [Right Brachial artery] O2 Saturation 93 Oxygen O2 Source HHFNC Oxygen Flow Rate 15 I&O (Last 24 Hrs): Intake and Output Totals x24h 08/05/21 08/06/21 08/07/21 23:59 23:59 23:59 Intake Total 650 210 Output Total 350 475 Balance 300 -265 General: Alert, Oriented x3, Mild distress HEENT: PERRLA, EOMI Neck: No JVD Neuro: Alert, Oriented Times 3 Cardiovascular: Regular rate Respiratory: Chest non-tender, Other (Mild respiratory disttress. Coarse breath sounds) Abdomen: Normal bowel sounds, Soft, No tenderness, Other (obese abdomen) Extremities: No clubbing, No cyanosis, No edema Skin: No rashes, No breakdown - Results Results: Laboratory Results WBC 8.7 x10^3/uL (4.8-10.8) 08/06/21 12:05 RBC 5.62 10^6/uL (4.70-6.10) 08/06/21 12:05 Hgb 15.8 g/dL (14.0-18.0) 08/06/21 12:05 Hct 48.0 % (42.0-52.0) 08/06/21 12:05 MCV 85.4 fL (80.0-94.0) 08/06/21 12:05 MCH 28.1 pg (27.0-31.0) 08/06/21 12:05 MCHC 32.9 g/dL (32.0-36.0) 08/06/21 12:05 RDW 15.9 % (12.0-15.0) H 08/06/21 12:05 Plt Count 211 10^3/uL (130-450) 08/06/21 12:05 MPV 10.9 fL (7.4-11.4) 08/06/21 12:05 Neut # (Auto) 7.4 10^3/uL (1.5-6.6) H 08/06/21 12:05 Lymph # (Auto) 0.9 10^3/uL (1.5-3.5) L 08/06/21 12:05 [place]uckolls # (Auto) 0.3 10^3/uL (0.0-1.0) 08/06/21 12:05 Eos # (Auto) 0.0 10^3/uL (0.0-0.7) 08/06/21 12:05 Baso # (Auto) 0.0 10^3/uL (0.0-0.1) 08/06/21 12:05 Absolute Nucleated RBC 0.00 x10^3/uL 08/06/21 12:05 Nucleated RBC % 0.0 /100WBC 08/06/21 12:05 D-Dimer 273.5 ng/mL (200.0-255.0) H 08/06/21 12:05 Sodium 138 mmol/L (135-145) 08/06/21 12:05 Potassium 3.6 mmol/L (3.5-5.0) 08/06/21 12:05 Chloride 100 mmol/L (101-111) L 08/06/21 12:05 Carbon Dioxide 25 mmol/L (21-32) 08/06/21 12:05 Anion Gap 13.0 (6-13) 08/06/21 12:05 BUN 22 mg/dL (6-20) H 08/06/21 12:05 Creatinine 1.3 mg/dL (0.6-1.2) H 08/06/21 12:05 Estimated GFR (MDRD) 55 (>89) L 08/06/21 12:05 Glucose 114 mg/dL (70-100) H 08/06/21 12:05 Calcium 8.1 mg/dL (8.5-10.3) L 08/06/21 12:05 Total Bilirubin 0.6 mg/dL (0.2-1.0) 08/06/21 12:05 AST 132 IU/L (10-42) H 08/06/21 12:05 ALT 69 IU/L (10-60) H 08/06/21 12:05 Alkaline Phosphatase 97 IU/L (42-121) 08/06/21 12:05 Troponin I High Sens 18.9 ng/L (2.3-19.7) 08/06/21 12:05 C-Reactive Protein 26.6 mg/dL (0-1.0) H 08/06/21 12:05 B-Natriuretic Peptide 51 pg/mL (5-100) 08/06/21 12:05 Total Protein 6.9 g/dL (6.7-8.2) 08/06/21 12:05 Albumin 3.0 g/dL (3.2-5.5) L 08/06/21 12:05 Globulin 3.9 g/dL (2.1-4.2) 08/06/21 12:05 Albumin/Globulin Ratio 0.8 (1.0-2.2) L 08/06/21 12:05 Lipase 35 U/L (22-51) 08/06/21 12:05 Urine Color DARK YELLOW 08/07/21 05:50 Urine Clarity CLEAR (CLEAR) 08/07/21 05:50 Urine pH 6.0 PH (5.0-7.5) 08/07/21 05:50 Ur Specific [place] 1.025 (1.002-1.030) 08/07/21 05:50 Urine Protein 100 mg/dL (NEGATIVE) H 08/07/21 05:50 Urine Glucose (UA) NEGATIVE mg/dL (NEGATIVE) 08/07/21 05:50 Urine Ketones 15 mg/dL (NEGATIVE) H 08/07/21 05:50 Urine Occult Blood SMALL (NEGATIVE) H 08/07/21 05:50 Urine Nitrite NEGATIVE (NEGATIVE) 08/07/21 05:50 Urine Bilirubin NEGATIVE (NEGATIVE) 08/07/21 05:50 Urine Urobilinogen 1 (NORMAL) E.U./dL (NORMAL) 08/07/21 05:50 Ur Leukocyte Esterase NEGATIVE (NEGATIVE) 08/07/21 05:50 Urine RBC 6-10 /HPF (0-5) H 08/07/21 05:50 Urine WBC 0-3 /HPF (0-3) 08/07/21 05:50 Ur Squamous Epith Cells RARE Squamous (<= Few) 08/07/21 05:50 Urine Bacteria Few /HPF (None Seen) 08/07/21 05:50 Urine Culture Comments NOT INDICATED 08/07/21 05:50 Nasal Screen MRSA (PCR) NEGATIVE (NEGATIVE) 08/07/21 01:46 ABX Reporting Has patient been on IV antibiotics over the past 48 hours?: No
[2021-08-07 08:28] LABS: BASOPHILS % (AUTO) 0.2 %; HCT - HEMATOCRIT 49.1 % (42.0-52.0); HGB - HEMOGLOBIN 15.9 g/dL (14.0-18.0); LYMPHOCYTES % (AUTO) 9.4 %; MEAN CORPUSCULAR HEMOGLOBIN 27.9 pg (27.0-31.0); MEAN CORPUSCULAR HGB CONC 32.4 g/dL (32.0-36.0); MEAN CORPUSCULAR VOLUME 86.3 fL (80.0-94.0); MEAN PLATELET VOLUME 11.2 fL (7.4-11.4); MONOCYTES # (AUTO) 0.5 10^3/uL (0.0-1.0); MONOCYTES % (AUTO) 4.8 %; NEUTROPHILS # (AUTO) 8.8 10^3/uL (1.5-6.6); NEUTROPHILS % (AUTO) 84.9 %; PLT - PLATELET COUNT 254 10^3/uL (130-450); RED BLOOD COUNT 5.69 10^6/uL (4.70-6.10); WHITE BLOOD COUNT 10.3 x10^3/uL (4.8-10.8)
[2021-08-07 08:57] LABS: ALBUMIN 2.9 g/dL (3.2-5.5); ALBUMIN/GLOBULIN RATIO 0.7 (1.0-2.2); BILIRUBIN,TOTAL 0.6 mg/dL (0.2-1.0); CALCIUM 8.4 mg/dL (8.5-10.3); POTASSIUM 3.8 mmol/L (3.5-5.0); TOTAL PROTEIN 6.9 g/dL (6.7-8.2)
[2021-08-07] MEDS ORDERED: ENOXAPARIN 40 MG/0.4 ML SYRINGE SUBQ SCH (09:00)
[2021-08-07] MEDS ORDERED: REMDESIVIR 100MG VIAL 100 MG in SODIUM CHLORIDE 0.9% 100ML 100 ML IV SCH (09:00)
--- NOTE | 2021-08-07 09:02 | PHARMACY PROGRESS NOTE ---
- Best Possible Medication History Admit Date and Time: 08/06/21 1315 Processed by: Nursing Patient Interview: Completed ([facility] completed by nursing) As the person ultimately responsible for medication therapy, providers are able to order a medication from an existing home medication list in [facility] via the "Reconcile Routine" prior to Confirmation of that medication by decision support analyst. Such practice is discouraged except when the physician, in their clinical judgment, deems that a medical need exists for a medication without regard to previous use.
[2021-08-07] MEDS: DEXAMETHASONE 4 MG/ML VIAL IVP SCH (10:02)
[2021-08-07] MEDS: ENOXAPARIN 40 MG/0.4 ML SYRINGE SUBQ SCH ×2 (10:02→20:53)
[2021-08-07] MEDS: CHOLECALCIFEROL 5,000 UNIT CAPSULE PO SCH (13:43)
[2021-08-07] MEDS: ASCORBIC ACID 500 MG TABLET PO SCH (13:43)
[2021-08-07] MEDS: ZINC SULFATE 220 MG CAPSULE PO SCH (13:44)
[2021-08-07] MEDS ORDERED: INSULIN ASPART 300 UNIT/3 ML PEN SUBQ SCH (17:00)
[2021-08-08 06:36] LABS: BASOPHILS % (AUTO) 0.1 %; EOSINOPHILS % (AUTO) 0.1 %; HGB - HEMOGLOBIN 15.2 g/dL (14.0-18.0); LYMPHOCYTES # (AUTO) 0.9 10^3/uL (1.5-3.5); LYMPHOCYTES % (AUTO) 10.1 %; MEAN CORPUSCULAR HEMOGLOBIN 27.7 pg (27.0-31.0); MEAN CORPUSCULAR HGB CONC 32.3 g/dL (32.0-36.0); MEAN CORPUSCULAR VOLUME 85.6 fL (80.0-94.0); MEAN PLATELET VOLUME 11.4 fL (7.4-11.4); MONOCYTES % (AUTO) 11.2 %; NEUTROPHILS # (AUTO) 7.1 10^3/uL (1.5-6.6); NEUTROPHILS % (AUTO) 77.6 %; PLT - PLATELET COUNT 325 10^3/uL (130-450); RED BLOOD COUNT 5.49 10^6/uL (4.70-6.10); RED CELL DISTRIBUTION WIDTH 15.5 % (12.0-15.0); WHITE BLOOD COUNT 9.1 x10^3/uL (4.8-10.8)
[2021-08-08 06:44] LABS: CALCIUM 8.3 mg/dL (8.5-10.3); POTASSIUM 3.8 mmol/L (3.5-5.0)
[2021-08-08 07:04] LABS: MAGNESIUM 2.5 mg/dL (1.7-2.8); PHOSPHORUS 2.1 mg/dL (2.5-4.6)
[2021-08-08 08:13] LABS: ABG BASE EXCESS 2.9 mmol/L (-2.0-3.0); ABG HCO3 25.7 mmol/L (22.0-26.0); ABG PCO2 34 mmHg (34-45); ABG PH 7.49 (7.35-7.45); ABG PO2 59 mmHg (80-100); ABG TCO2 26.7 MMOL/L (21.0-29.0)
[2021-08-08 08:14] LABS: ABG MODE OF VENTILATION SPON; ABG OXYGEN SATURATION 93 % (94-98); ALLEN TEST POSITIVE
[2021-08-08] MEDS: SODIUM CHLORIDE FLUSH 0.9% 10 ML SYRINGE IVP SCH ×6 (09:00→20:54)
[2021-08-08] MEDS: SENNA 8.6 MG TABLET PO SCH (09:02)
[2021-08-08] MEDS: ASCORBIC ACID 500 MG TABLET PO SCH (09:03)
[2021-08-08] MEDS: NEUTRA-PHOS 250 MG TABLET PO SCH ×2 (09:03→11:29)
[2021-08-08] MEDS: CHOLECALCIFEROL 5,000 UNIT CAPSULE PO SCH (09:03)
[2021-08-08] MEDS: REMDESIVIR 100MG VIAL 100 MG in SODIUM CHLORIDE 0.9% 250 ML IV SCH (09:03)
[2021-08-08] MEDS: polyethylene glycoL 3350 17 GM PACKET PO SCH (09:03)
[2021-08-08] MEDS: ZINC SULFATE 220 MG CAPSULE PO SCH (09:03)
[2021-08-08] MEDS: ENOXAPARIN 40 MG/0.4 ML SYRINGE SUBQ SCH ×2 (09:04→20:48)
[2021-08-08] MEDS: DEXAMETHASONE 4 MG/ML VIAL IVP SCH (09:04)
[2021-08-08] MEDS: DOCUSATE SODIUM 250 MG CAPSULE PO SCH (09:04)
[2021-08-08] MEDS: guaiFENesin/DEXTROMETHORPHAN 10 ML UDC PO PRN (09:05)
[2021-08-08] MEDS: MORPHINE 2 MG/ML CARPUJECT IVP PRN ×3 (14:07→20:54)
--- NOTE | 2021-08-08 16:11 | PROVIDER PROGRESS NOTE ---
Assessment/Plan - Problem List (1) Acute respiratory failure with hypoxia Assessment/Plan: This is secondary to COVID-19 pneumonia. He is currently on an FiO2 of 100% on the BiPAP with his oxygen saturation at 93-96%. ABG showed pH 7.49, PCO2 34, PO2 59, HCO3 25.7 Remdesivir day 3/. Dexamethasone day 12/24 (2) Pneumonia due to COVID-19 virus Assessment/Plan: He is currently on an FiO2 of 100% on the BiPAP with his oxygen saturation at 93-96%. Remdesivir day 3. Dexamethasone day 12/24 Lovenox 40 mg subcu twice daily for DVT prophylaxis. (3) Acute kidney injury Assessment/Plan: Improved/Resolved. Creatinine today is 1.0 with an estimated GFR of 74 (4) Elevated liver enzymes Assessment/Plan: Improving Likely secondary to COVID-19 infection. AST:32>111 ALT:69>63 Anticipate further improvement (5) Obstructive sleep apnea on CPAP Assessment/Plan: Currently on bipap (6) Chronic back pain Assessment/Plan: Pain management as needed - Current Meds Current Meds: Current Medications Generic Name Dose Route Start Last Admin Trade Name Freq PRN Reason Stop Dose Admin Ascorbic Acid 500 mg 08/07/21 11:00 08/08/21 09:03 Ascorbic Acid 500 Mg Tablet PO 500 mg DAILY SHAUN Administration Cholecalciferol 5,000 unit 08/07/21 11:00 08/08/21 09:03 Cholecalciferol 5,000 Unit Capsule PO 08/16/21 09:01 5,000 unit DAILY SHAUN Administration Dexamethasone 6 mg 08/07/21 09:00 08/08/21 09:04 Dexamethasone 4 Mg/Ml Vial IVP 08/15/21 09:01 6 mg DAILY SHAUN Administration Docusate Sodium 250 - 500 mg 08/08/21 09:00 08/08/21 09:04 Docusate Sodium 250 Mg Capsule PO 250 mg DAILY SHAUN Administration Enoxaparin Sodium 40 mg 08/06/21 16:00 08/08/21 09:04 Enoxaparin 40 Mg/0.4 Ml Syringe SUBQ 40 mg BID SHAUN Administration Guaifenesin 10 ml 08/06/21 18:26 08/08/21 09:05 Guaifenesin/Dextromethorphan 10 Ml Udc PO 10 ml Q6HR PRN Administration Cough Remdesivir 100 mg/ Sodium 250 mls @ 200 mls/hr 08/08/21 09:00 08/08/21 10:25 Chloride IV 08/10/21 10:14 Infused DAILY SHAUN Infusion Morphine Sulfate 2 mg 08/08/21 12:32 08/08/21 14:07 Morphine 2 Mg/Ml Carpuject IVP 2 mg Q6HR PRN Administration PAIN Polyethylene Glycol 17 gm 08/08/21 09:00 08/08/21 09:03 Polyethylene Glycol 3350 17 Gm Packet PO 17 gm DAILY SHAUN Administration Senna 8.6 - 17.2 mg 08/08/21 09:00 08/08/21 09:02 Senna 8.6 Mg Tablet PO 8.6 mg DAILY SHAUN Administration Sodium Chloride 10 ml 08/06/21 17:00 08/08/21 09:04 Sodium Chloride Flush 0.9% 10 Ml Syringe IVP 10 ml 0100,0900,1700 SHAUN Administration Sodium Chloride 10 ml 08/07/21 01:00 08/08/21 09:05 Sodium Chloride Flush 0.9% 10 Ml Syringe IVP 10 ml 0100,0900,1700 SHAUN Administration Throat Lozenges 1 lozenge 08/06/21 17:29 08/06/21 21:11 Benzocaine/Menthol Lozenge MM 1 lozenge Q2HR PRN Administration Throat pain Zinc Sulfate 220 mg 08/07/21 11:00 08/08/21 09:03 Zinc Sulfate 220 Mg Capsule PO 08/11/21 09:01 220 mg DAILY SHAUN Administration - Lab Result Fish Bone Diagrams: 08/08/21 05:25 08/08/21 05:25 - Additional Planning My Orders: My Active Orders 08/08/21 07:30 RT - Obtain Arterial Specimen [RC] .ONCE 08/08/21 09:00 Docusate Sodium 250Mg Capsule [Colace 250Mg Capsule] 250 - 500 mg PO DAILY Remdesivir 100Mg Vial [Veklury] 100 mg Sodium Chloride 0.9% [Normal Saline 0.9%] 250 ml IV DAILY Senna [Senokot] 8.6 - 17.2 mg PO DAILY polyethylene glycoL 3350 [Miralax] 17 gm PO DAILY 08/08/21 12:32 LORazepam [Ativan] 0.5 mg PO Q6H PRN Morphine Inj (Carpuject) [Morphine (Carpuject)] 2 mg IVP Q6HR PRN 08/09/21 05:00 BMP - BASIC METABOLIC PANEL [CHEM] DAILYLAB CBC - COMP BLD CT W/AUTO DIFF [HEME] DAILYLAB 08/10/21 05:00 BMP - BASIC METABOLIC PANEL [CHEM] DAILYLAB CBC - COMP BLD CT W/AUTO DIFF [HEME] DAILYLAB 08/11/21 05:00 BMP - BASIC METABOLIC PANEL [CHEM] DAILYLAB CBC - COMP BLD CT W/AUTO DIFF [HEME] DAILYLAB 08/12/21 05:00 BMP - BASIC METABOLIC PANEL [CHEM] DAILYLAB CBC - COMP BLD CT W/AUTO DIFF [HEME] DAILYLAB 08/13/21 05:00 BMP - BASIC METABOLIC PANEL [CHEM] DAILYLAB CBC - COMP BLD CT W/AUTO DIFF [HEME] DAILYLAB 08/14/21 05:00 BMP - BASIC METABOLIC PANEL [CHEM] DAILYLAB Subjective - Subjective Patient Reports: Other (Sitting comfortably in bed. Reported no change in his respiratory status compared to the previous day. However he is significantly more tachypneic with respiratory rates between 30 and 40. On an FiO2 of 100% on the BiPAP with oxygen saturation between 93 and 96%. He denied any other complaint) Objective Vital Signs: Vital Signs - 24 hr 08/07/21 08/07/21 08/07/21 17:00 19:20 21:00 Temperature 37.3 C 37.2 C Heart Rate 68 Heart Rate [ 73 73 Brachial] Respiratory 30 H 34 H Rate Blood Pressure 121/65 128/70 [Left Brachial artery] Blood Pressure [Right Brachial artery] O2 Saturation 94 89 L 08/07/21 08/07/21 08/08/21 21:50 23:37 00:20 Temperature Heart Rate 76 62 Heart Rate [ 74 Brachial] Respiratory 34 H Rate Blood Pressure 124/97 H [Left Brachial artery] Blood Pressure [Right Brachial artery] O2 Saturation 87 L 08/08/21 08/08/21 08/08/21 03:10 03:32 05:40 Temperature 37.2 C Heart Rate 69 67 Heart Rate [ 70 Brachial] Respiratory 39 H Rate Blood Pressure 136/75 H [Left Brachial artery] Blood Pressure [Right Brachial artery] O2 Saturation 88 L 08/08/21 08/08/21 08/08/21 09:00 09:15 11:44 Temperature 37 C Heart Rate 78 67 Heart Rate [ 69 Brachial] Respiratory 27 H Rate Blood Pressure 120/74 [Left Brachial artery] Blood Pressure [Right Brachial artery] O2 Saturation 93 08/08/21 08/08/21 12:59 15:26 Temperature 36.5 C Heart Rate 63 Heart Rate [ Brachial] Respiratory 25 H Rate Blood Pressure [Left Brachial artery] Blood Pressure 125/77 [Right Brachial artery] O2 Saturation 92 Oxygen O2 Source BIPAP Oxygen Flow Rate 15 I&O (Last 24 Hrs): Intake and Output Totals x24h 08/06/21 08/07/21 08/08/21 23:59 23:59 23:59 Intake Total 650 1700 1200 Output Total 350 1325 650 Balance 300 375 550 General: Alert, Oriented x3, Mild distress HEENT: PERRLA, EOMI Neck: Supple, No JVD Neuro: Alert, Oriented Times 3 Cardiovascular: Regular rate, Normal S1, Normal S2 Respiratory: Chest non-tender, Other (Mild dyspnea, Tachypnea, Coarse breath sounds) Extremities: No clubbing, No cyanosis, No edema Skin: No rashes, No breakdown, No significant lesion - Results Results: Laboratory Results WBC 9.1 x10^3/uL (4.8-10.8) 08/08/21 05:25 RBC 5.49 10^6/uL (4.70-6.10) 08/08/21 05:25 Hgb 15.2 g/dL (14.0-18.0) 08/08/21 05:25 Hct 47.0 % (42.0-52.0) 08/08/21 05:25 MCV 85.6 fL (80.0-94.0) 08/08/21 05:25 MCH 27.7 pg (27.0-31.0) 08/08/21 05:25 MCHC 32.3 g/dL (32.0-36.0) 08/08/21 05:25 RDW 15.5 % (12.0-15.0) H 08/08/21 05:25 Plt Count 325 10^3/uL (130-450) 08/08/21 05:25 MPV 11.4 fL (7.4-11.4) 08/08/21 05:25 Neut # (Auto) 7.1 10^3/uL (1.5-6.6) H 08/08/21 05:25 Lymph # (Auto) 0.9 10^3/uL (1.5-3.5) L 08/08/21 05:25 [place] # (Auto) 1.0 10^3/uL (0.0-1.0) 08/08/21 05:25 Eos # (Auto) 0.0 10^3/uL (0.0-0.7) 08/08/21 05:25 Baso # (Auto) 0.0 10^3/uL (0.0-0.1) 08/08/21 05:25 Absolute Nucleated RBC 0.00 x10^3/uL 08/08/21 05:25 Nucleated RBC % 0.0 /100WBC 08/08/21 05:25 D-Dimer 273.5 ng/mL (200.0-255.0) H 08/06/21 12:05 Bld Gas Analysis Time 0803 08/08/21 08:03 Sample Site LEFT RADIAL 08/08/21 08:03 ABG pH 7.49 (7.35-7.45) H 08/08/21 08:03 ABG pCO2 34 mmHg (34-45) 08/08/21 08:03 ABG pO2 59 mmHg (80-100) L 08/08/21 08:03 ABG HCO3 25.7 mmol/L (22.0-26.0) 08/08/21 08:03 ABG Total CO2 26.7 MMOL/L (21.0-29.0) 08/08/21 08:03 ABG O2 Saturation 93 % (94-98) L 08/08/21 08:03 ABG Base Excess 2.9 mmol/L (-2.0-3.0) 08/08/21 08:03 Benny Test POSITIVE 08/08/21 08:03 O2 Delivery Device VENTILATOR 08/08/21 08:03 Vent Mode SPON 08/08/21 08:03 FiO2 100.00 08/08/21 08:03 EPAP 8 cmH2O 08/08/21 08:03 IPAP 16 cmH2O 08/08/21 08:03 Sodium 140 mmol/L (135-145) 08/08/21 05:25 Potassium 3.8 mmol/L (3.5-5.0) 08/08/21 05:25 Chloride 102 mmol/L (101-111) 08/08/21 05:25 Carbon Dioxide 26 mmol/L (21-32) 08/08/21 05:25 Anion Gap 12.0 (6-13) 08/08/21 05:25 BUN 31 mg/dL (6-20) H 08/08/21 05:25 Creatinine 1.0 mg/dL (0.6-1.2) 08/08/21 05:25 Estimated GFR (MDRD) 74 (>89) L 08/08/21 05:25 Glucose 135 mg/dL (70-100) H 08/08/21 05:25 Calcium 8.3 mg/dL (8.5-10.3) L 08/08/21 05:25 Phosphorus 2.1 mg/dL (2.5-4.6) L 08/08/21 05:25 Magnesium 2.5 mg/dL (1.7-2.8) 08/08/21 05:25 Total Bilirubin 0.6 mg/dL (0.2-1.0) 08/07/21 08:12 AST 111 IU/L (10-42) H 08/07/21 08:12 ALT 63 IU/L (10-60) H 08/07/21 08:12 Alkaline Phosphatase 98 IU/L (42-121) 08/07/21 08:12 Troponin I High Sens 18.9 ng/L (2.3-19.7) 08/06/21 12:05 C-Reactive Protein 26.6 mg/dL (0-1.0) H 08/06/21 12:05 B-Natriuretic Peptide 51 pg/mL (5-100) 08/06/21 12:05 Total Protein 6.9 g/dL (6.7-8.2) 08/07/21 08:12 Albumin 2.9 g/dL (3.2-5.5) L 08/07/21 08:12 Globulin 4.0 g/dL (2.1-4.2) 08/07/21 08:12 Albumin/Globulin Ratio 0.7 (1.0-2.2) L 08/07/21 08:12 Lipase 35 U/L (22-51) 08/06/21 12:05 Urine Color DARK YELLOW 08/07/21 05:50 Urine Clarity CLEAR (CLEAR) 08/07/21 05:50 Urine pH 6.0 PH (5.0-7.5) 08/07/21 05:50 Ur Specific [place] 1.025 (1.002-1.030) 08/07/21 05:50 Urine Protein 100 mg/dL (NEGATIVE) H 08/07/21 05:50 Urine Glucose (UA) NEGATIVE mg/dL (NEGATIVE) 08/07/21 05:50 Urine Ketones 15 mg/dL (NEGATIVE) H 08/07/21 05:50 Urine Occult Blood SMALL (NEGATIVE) H 08/07/21 05:50 Urine Nitrite NEGATIVE (NEGATIVE) 08/07/21 05:50 Urine Bilirubin NEGATIVE (NEGATIVE) 08/07/21 05:50 Urine Urobilinogen 1 (NORMAL) E.U./dL (NORMAL) 08/07/21 05:50 Ur Leukocyte Esterase NEGATIVE (NEGATIVE) 08/07/21 05:50 Urine RBC 6-10 /HPF (0-5) H 08/07/21 05:50 Urine WBC 0-3 /HPF (0-3) 08/07/21 05:50 Ur Squamous Epith Cells RARE Squamous (<= Few) 08/07/21 05:50 Urine Bacteria Few /HPF (None Seen) 08/07/21 05:50 Urine Culture Comments NOT INDICATED 08/07/21 05:50 Nasal Screen MRSA (PCR) NEGATIVE (NEGATIVE) 08/07/21 01:46 ABX Reporting Has patient been on IV antibiotics over the past 48 hours?: No
--- NOTE | 2021-08-08 18:15 | XRAY Report ---
PROCEDURE: Chest 1 View X-Ray INDICATIONS: hypoxia TECHNIQUE: One view of the chest was acquired. COMPARISON: 08/06/2021 FINDINGS: Surgical changes and devices: None. Lungs and pleura: Diffuse interstitial infiltrates are seen, which are improved compared to the prio r chest radiograph. On the semiupright images, no large pneumothorax or large pleural effusions can b e seen. Low lung volumes can be seen, causing a crowded appearance to the lung markings. Mediastinum: Mediastinal contours appear normal. Heart size is normal. Bones and chest wall: No suspicious bony lesions. Overlying soft tissues appear unremarkable. IMPRESSION: Compared to the prior chest radiograph, the bilateral patchy interstitial infiltrates are improved. T he appearance is consistent with the given clinical history of COVID pneumonia. If it would be helpful for clinical management decision making, please consider a dedicated chest CT with IV contrast for further evaluation. Reviewed by: Albin Deluna MD on 08/08/2021 5:14 PM GENET Approved by: Albin Deluna MD on 08/08/2021 5:14 PM GENET Station ID: [id number]
[2021-08-08] MEDS: LORazepam 0.5 MG TABLET PO PRN (20:48)
[2021-08-09] MEDS: SODIUM CHLORIDE FLUSH 0.9% 10 ML SYRINGE IVP SCH ×5 (00:26→16:18)
[2021-08-09] MEDS: MORPHINE 2 MG/ML CARPUJECT IVP PRN ×4 (00:26→20:48)
[2021-08-09 05:22] LABS: BASOPHILS % (AUTO) 0.1 %; HCT - HEMATOCRIT 46.9 % (42.0-52.0); HGB - HEMOGLOBIN 15.6 g/dL (14.0-18.0); LYMPHOCYTES % (AUTO) 10.3 %; MEAN CORPUSCULAR HEMOGLOBIN 28.4 pg (27.0-31.0); MEAN CORPUSCULAR HGB CONC 33.3 g/dL (32.0-36.0); MEAN CORPUSCULAR VOLUME 85.4 fL (80.0-94.0); MEAN PLATELET VOLUME 10.8 fL (7.4-11.4); MONOCYTES # (AUTO) 1.3 10^3/uL (0.0-1.0); MONOCYTES % (AUTO) 13.8 %; NEUTROPHILS # (AUTO) 6.9 10^3/uL (1.5-6.6); NEUTROPHILS % (AUTO) 75.1 %; PLT - PLATELET COUNT 317 10^3/uL (130-450); RED BLOOD COUNT 5.49 10^6/uL (4.70-6.10); RED CELL DISTRIBUTION WIDTH 15.5 % (12.0-15.0); WHITE BLOOD COUNT 9.2 x10^3/uL (4.8-10.8)
[2021-08-09] MEDS: SODIUM CHLORIDE FLUSH 0.9% 10 ML SYRINGE IVP PRN ×3 (05:22→20:51)
[2021-08-09 05:29] LABS: CALCIUM 8.4 mg/dL (8.5-10.3); CREATININE 0.8 mg/dL (0.6-1.2); POTASSIUM 3.9 mmol/L (3.5-5.0)
[2021-08-09 05:33] LABS: MAGNESIUM 2.5 mg/dL (1.7-2.8); PHOSPHORUS 3.3 mg/dL (2.5-4.6)
[2021-08-09] MEDS ORDERED: POTASSIUM CHLORIDE 20 MEQ TABLET PO ONE (08:00)
[2021-08-09] MEDS: SENNA 8.6 MG TABLET PO SCH (08:58)
[2021-08-09] MEDS: ASCORBIC ACID 500 MG TABLET PO SCH (08:58)
[2021-08-09] MEDS: DEXAMETHASONE 4 MG/ML VIAL IVP SCH (08:58)
[2021-08-09] MEDS: CHOLECALCIFEROL 5,000 UNIT CAPSULE PO SCH (08:58)
[2021-08-09] MEDS: ZINC SULFATE 220 MG CAPSULE PO SCH (08:58)
[2021-08-09] MEDS: DOCUSATE SODIUM 250 MG CAPSULE PO SCH (08:59)
[2021-08-09] MEDS: ENOXAPARIN 40 MG/0.4 ML SYRINGE SUBQ SCH ×2 (08:59→20:32)
[2021-08-09] MEDS: polyethylene glycoL 3350 17 GM PACKET PO SCH (09:00)
[2021-08-09] MEDS: REMDESIVIR 100MG VIAL 100 MG in SODIUM CHLORIDE 0.9% 250 ML IV SCH (09:01)
--- NOTE | 2021-08-09 10:47 | PROVIDER PROGRESS NOTE ---
Assessment/Plan - Problem List (1) Acute respiratory failure with hypoxia Assessment/Plan: This is secondary to COVID-19 pneumonia. He is currently on an FiO2 of 100% on the BiPAP with his oxygen saturation at 90-96%. Remdesivir day 4/5. Dexamethasone day 01/24 Chest x-ray done 08/08/2021 showed improvement in bilateral patchy interstitial infiltrates when compared to the x-ray of 08/06/2021. (2) Pneumonia due to COVID-19 virus Assessment/Plan: He is currently on an FiO2 of 100% on the BiPAP with his oxygen saturation at 93-96%. Remdesivir day 4/5. Dexamethasone day 01/24 Lovenox 40 mg subcu twice daily for DVT prophylaxis. Chest x-ray done 08/08/2021 showed improvement in bilateral patchy interstitial infiltrates when compared to the x-ray of 08/06/2021. (3) Acute kidney injury Assessment/Plan: Improved/Resolved. Creatinine today is 0.8 with an estimated GFR of 96 (4) Elevated liver enzymes Assessment/Plan: Improving Likely secondary to COVID-19 infection. AST:32>111 ALT:69>63 Anticipate further improvement (5) Obstructive sleep apnea on CPAP Assessment/Plan: Currently on bipap (6) Chronic back pain Assessment/Plan: Pain management as needed - Current Meds Current Meds: Current Medications Generic Name Dose Route Start Last Admin Trade Name Freq PRN Reason Stop Dose Admin Ascorbic Acid 500 mg 08/07/21 11:00 08/09/21 08:58 Ascorbic Acid 500 Mg Tablet PO 500 mg DAILY SHAUN Administration Cholecalciferol 5,000 unit 08/07/21 11:00 08/09/21 08:58 Cholecalciferol 5,000 Unit Capsule PO 08/16/21 09:01 5,000 unit DAILY SHAUN Administration Dexamethasone 6 mg 08/07/21 09:00 08/09/21 08:58 Dexamethasone 4 Mg/Ml Vial IVP 08/15/21 09:01 6 mg DAILY SHAUN Administration Docusate Sodium 250 - 500 mg 08/08/21 09:00 08/09/21 08:59 Docusate Sodium 250 Mg Capsule PO 250 mg DAILY SHAUN Administration Enoxaparin Sodium 40 mg 08/06/21 16:00 08/09/21 08:59 Enoxaparin 40 Mg/0.4 Ml Syringe SUBQ 40 mg BID SHAUN Administration Guaifenesin 10 ml 08/06/21 18:26 08/08/21 09:05 Guaifenesin/Dextromethorphan 10 Ml Udc PO 10 ml Q6HR PRN Administration Cough Remdesivir 100 mg/ Sodium 250 mls @ 200 mls/hr 08/08/21 09:00 08/09/21 09:01 Chloride IV 08/10/21 10:14 200 mls/hr DAILY SHAUN Administration Lorazepam 0.5 mg 08/08/21 12:32 08/08/21 20:48 Lorazepam 0.5 Mg Tablet PO 0.5 mg Q6H PRN Administration Anxiety Morphine Sulfate 2 mg 08/08/21 20:29 08/09/21 05:21 Morphine 2 Mg/Ml Carpuject IVP 2 mg Q2HR PRN Administration Dyspnea Polyethylene Glycol 17 gm 08/08/21 09:00 08/09/21 09:00 Polyethylene Glycol 3350 17 Gm Packet PO 17 gm DAILY SHAUN Administration Senna 8.6 - 17.2 mg 08/08/21 09:00 08/09/21 08:58 Senna 8.6 Mg Tablet PO 8.6 mg DAILY SHAUN Administration Sodium Chloride 10 ml 08/06/21 13:14 08/09/21 05:22 Sodium Chloride Flush 0.9% 10 Ml Syringe IVP 10 ml PRN PRN Administration NEEDED PER PROVIDER ORDERS Sodium Chloride 10 ml 08/06/21 17:00 08/09/21 09:01 Sodium Chloride Flush 0.9% 10 Ml Syringe IVP 10 ml 0100,0900,1700 SHAUN Administration Sodium Chloride 10 ml 08/07/21 01:00 08/09/21 00:26 Sodium Chloride Flush 0.9% 10 Ml Syringe IVP 10 ml 0100,0900,1700 SHAUN Administration Sodium Chloride 10 ml 08/07/21 00:56 08/09/21 05:22 Sodium Chloride Flush 0.9% 10 Ml Syringe IVP 10 ml PRN PRN Administration NEEDED PER PROVIDER ORDERS Throat Lozenges 1 lozenge 08/06/21 17:29 08/06/21 21:11 Benzocaine/Menthol Lozenge MM 1 lozenge Q2HR PRN Administration Throat pain Zinc Sulfate 220 mg 08/07/21 11:00 08/09/21 08:58 Zinc Sulfate 220 Mg Capsule PO 10/26/21 09:01 220 mg DAILY SHAUN Administration - Lab Result Fish Bone Diagrams: 08/09/21 05:09 08/09/21 05:09 - Additional Planning My Orders: My Active Orders 08/08/21 12:32 LORazepam [Ativan] 0.5 mg PO Q6H PRN 08/10/21 05:00 BMP - BASIC METABOLIC PANEL [CHEM] DAILYLAB CBC - COMP BLD CT W/AUTO DIFF [HEME] DAILYLAB 08/11/21 05:00 BMP - BASIC METABOLIC PANEL [CHEM] DAILYLAB CBC - COMP BLD CT W/AUTO DIFF [HEME] DAILYLAB 08/12/21 05:00 BMP - BASIC METABOLIC PANEL [CHEM] DAILYLAB CBC - COMP BLD CT W/AUTO DIFF [HEME] DAILYLAB 08/13/21 05:00 BMP - BASIC METABOLIC PANEL [CHEM] DAILYLAB CBC - COMP BLD CT W/AUTO DIFF [HEME] DAILYLAB 08/14/21 05:00 BMP - BASIC METABOLIC PANEL [CHEM] DAILYLAB Subjective - Subjective Patient Reports: Other (Resting comfortably in bed. No significant change in respiratory status. Tachypnea is improved. However patient continues to be on an FiO2 of 100% on the BiPAP continuously with oxygen saturation between 90 and 96%. He denies any complaints.) Objective Vital Signs: Vital Signs - 24 hr 08/08/21 08/08/21 08/08/21 11:44 12:59 15:26 Temperature 36.5 C Heart Rate 67 63 Heart Rate [ Brachial] Respiratory 25 H Rate Blood Pressure 125/77 [Right Brachial artery] O2 Saturation 92 08/08/21 08/08/21 08/08/21 17:00 17:26 19:35 Temperature 36.8 C Heart Rate 64 58 L Heart Rate [ 68 Brachial] Respiratory 28 H Rate Blood Pressure 141/75 H [Right Brachial artery] O2 Saturation 95 08/08/21 08/08/21 08/08/21 21:00 21:45 22:00 Temperature 37.5 C Heart Rate 61 Heart Rate [ 60 61 Brachial] Respiratory 19 24 Rate Blood Pressure 128/68 128/68 [Right Brachial artery] O2 Saturation 93 94 08/08/21 08/09/21 08/09/21 23:45 01:00 01:45 Temperature 37.3 C Heart Rate 63 65 Heart Rate [ 64 Brachial] Respiratory 30 H Rate Blood Pressure 117/66 [Right Brachial artery] O2 Saturation 91 L 08/09/21 08/09/21 08/09/21 03:36 05:00 05:45 Temperature 37.0 C Heart Rate 64 71 Heart Rate [ 73 Brachial] Respiratory 24 Rate Blood Pressure 127/83 H [Right Brachial artery] O2 Saturation 96 08/09/21 08/09/21 07:48 08:45 Temperature 36.9 C Heart Rate 64 Heart Rate [ 68 Brachial] Respiratory 31 H Rate Blood Pressure 130/74 [Right Brachial artery] O2 Saturation 92 Oxygen O2 Source BIPAP Oxygen Flow Rate 15 I&O (Last 24 Hrs): Intake and Output Totals x24h 08/07/21 08/08/21 08/09/21 23:59 23:59 23:59 Intake Total 1700 1560 200 Output Total 1325 1010 750 Balance 375 550 -550 General: Alert, Oriented x3, Mild distress Neck: Supple, No JVD Neuro: Alert, Oriented Times 3 Cardiovascular: Regular rate, Normal S1, Normal S2 Respiratory: Chest non-tender, Other (Crackles on lung bases. Tachypnea improved. Mild dyspnea.) Abdomen: Normal bowel sounds, Soft, No tenderness Extremities: No clubbing, No cyanosis, No edema Skin: No rashes, No breakdown, No significant lesion - Results Results: Laboratory Results WBC 9.2 x10^3/uL (4.8-10.8) 08/09/21 05:09 RBC 5.49 10^6/uL (4.70-6.10) 08/09/21 05:09 Hgb 15.6 g/dL (14.0-18.0) 08/09/21 05:09 Hct 46.9 % (42.0-52.0) 08/09/21 05:09 MCV 85.4 fL (80.0-94.0) 08/09/21 05:09 MCH 28.4 pg (27.0-31.0) 08/09/21 05:09 MCHC 33.3 g/dL (32.0-36.0) 08/09/21 05:09 RDW 15.5 % (12.0-15.0) H 08/09/21 05:09 Plt Count 317 10^3/uL (130-450) 08/09/21 05:09 MPV 10.8 fL (7.4-11.4) 08/09/21 05:09 Neut # (Auto) 6.9 10^3/uL (1.5-6.6) H 08/09/21 05:09 Lymph # (Auto) 1.0 10^3/uL (1.5-3.5) L 08/09/21 05:09 [place] # (Auto) 1.3 10^3/uL (0.0-1.0) H 08/09/21 05:09 Eos # (Auto) 0.0 10^3/uL (0.0-0.7) 08/09/21 05:09 Baso # (Auto) 0.0 10^3/uL (0.0-0.1) 08/09/21 05:09 Absolute Nucleated RBC 0.00 x10^3/uL 08/09/21 05:09 Nucleated RBC % 0.0 /100WBC 08/09/21 05:09 D-Dimer 273.5 ng/mL (200.0-255.0) H 08/06/21 12:05 Bld Gas Analysis Time 0803 08/08/21 08:03 Sample Site LEFT RADIAL 08/08/21 08:03 ABG pH 7.49 (7.35-7.45) H 08/08/21 08:03 ABG pCO2 34 mmHg (34-45) 08/08/21 08:03 ABG pO2 59 mmHg (80-100) L 08/08/21 08:03 ABG HCO3 25.7 mmol/L (22.0-26.0) 08/08/21 08:03 ABG Total CO2 26.7 MMOL/L (21.0-29.0) 08/08/21 08:03 ABG O2 Saturation 93 % (94-98) L 08/08/21 08:03 ABG Base Excess 2.9 mmol/L (-2.0-3.0) 08/08/21 08:03 Benny Test POSITIVE 08/08/21 08:03 O2 Delivery Device VENTILATOR 08/08/21 08:03 Vent Mode SPON 08/08/21 08:03 FiO2 100.00 08/08/21 08:03 EPAP 8 cmH2O 08/08/21 08:03 IPAP 16 cmH2O 08/08/21 08:03 Sodium 142 mmol/L (135-145) 08/09/21 05:09 Potassium 3.9 mmol/L (3.5-5.0) 08/09/21 05:09 Chloride 102 mmol/L (101-111) 08/09/21 05:09 Carbon Dioxide 27 mmol/L (21-32) 08/09/21 05:09 Anion Gap 13.0 (6-13) 08/09/21 05:09 BUN 32 mg/dL (6-20) H 08/09/21 05:09 Creatinine 0.8 mg/dL (0.6-1.2) 08/09/21 05:09 Estimated GFR (MDRD) 96 (>89) 08/09/21 05:09 Glucose 142 mg/dL (70-100) H 08/09/21 05:09 Calcium 8.4 mg/dL (8.5-10.3) L 08/09/21 05:09 Phosphorus 3.3 mg/dL (2.5-4.6) 08/09/21 05:09 Magnesium 2.5 mg/dL (1.7-2.8) 08/09/21 05:09 Total Bilirubin 0.6 mg/dL (0.2-1.0) 08/07/21 08:12 AST 111 IU/L (10-42) H 08/07/21 08:12 ALT 63 IU/L (10-60) H 08/07/21 08:12 Alkaline Phosphatase 98 IU/L (42-121) 08/07/21 08:12 Troponin I High Sens 18.9 ng/L (2.3-19.7) 08/06/21 12:05 C-Reactive Protein 26.6 mg/dL (0-1.0) H 08/06/21 12:05 B-Natriuretic Peptide 51 pg/mL (5-100) 08/06/21 12:05 Total Protein 6.9 g/dL (6.7-8.2) 08/07/21 08:12 Albumin 2.9 g/dL (3.2-5.5) L 08/07/21 08:12 Globulin 4.0 g/dL (2.1-4.2) 08/07/21 08:12 Albumin/Globulin Ratio 0.7 (1.0-2.2) L 08/07/21 08:12 Lipase 35 U/L (22-51) 08/06/21 12:05 Urine Color DARK YELLOW 08/07/21 05:50 Urine Clarity CLEAR (CLEAR) 08/07/21 05:50 Urine pH 6.0 PH (5.0-7.5) 08/07/21 05:50 Ur Specific [place] 1.025 (1.002-1.030) 08/07/21 05:50 Urine Protein 100 mg/dL (NEGATIVE) H 08/07/21 05:50 Urine Glucose (UA) NEGATIVE mg/dL (NEGATIVE) 08/07/21 05:50 Urine Ketones 15 mg/dL (NEGATIVE) H 08/07/21 05:50 Urine Occult Blood SMALL (NEGATIVE) H 08/07/21 05:50 Urine Nitrite NEGATIVE (NEGATIVE) 08/07/21 05:50 Urine Bilirubin NEGATIVE (NEGATIVE) 08/07/21 05:50 Urine Urobilinogen 1 (NORMAL) E.U./dL (NORMAL) 08/07/21 05:50 Ur Leukocyte Esterase NEGATIVE (NEGATIVE) 08/07/21 05:50 Urine RBC 6-10 /HPF (0-5) H 08/07/21 05:50 Urine WBC 0-3 /HPF (0-3) 08/07/21 05:50 Ur Squamous Epith Cells RARE Squamous (<= Few) 08/07/21 05:50 Urine Bacteria Few /HPF (None Seen) 08/07/21 05:50 Urine Culture Comments NOT INDICATED 08/07/21 05:50 Nasal Screen MRSA (PCR) NEGATIVE (NEGATIVE) 08/07/21 01:46 ABX Reporting Has patient been on IV antibiotics over the past 48 hours?: No
[2021-08-09] MEDS: LORazepam 0.5 MG TABLET PO PRN (20:48)
[2021-08-09] MEDS: guaiFENesin/DEXTROMETHORPHAN 10 ML UDC PO PRN (20:48)
[2021-08-10] MEDS: SODIUM CHLORIDE FLUSH 0.9% 10 ML SYRINGE IVP SCH ×7 (00:49→20:23)
[2021-08-10 05:46] LABS: BASOPHILS % (AUTO) 0.3 %; CALCIUM, IONIZED 1.07 mmol/L (1.15-1.33); HGB - HEMOGLOBIN 15.4 g/dL (14.0-18.0); LYMPHOCYTES % (AUTO) 8.5 %; MEAN CORPUSCULAR HEMOGLOBIN 27.7 pg (27.0-31.0); MEAN CORPUSCULAR HGB CONC 32.1 g/dL (32.0-36.0); MEAN CORPUSCULAR VOLUME 86.3 fL (80.0-94.0); MEAN PLATELET VOLUME 11.1 fL (7.4-11.4); MONOCYTES % (AUTO) 14.2 %; NEUTROPHILS % (AUTO) 75.8 %; PLT - PLATELET COUNT 348 10^3/uL (130-450); RED BLOOD COUNT 5.56 10^6/uL (4.70-6.10); RED CELL DISTRIBUTION WIDTH 15.4 % (12.0-15.0); VBG PH 7.458 (7.31-7.41)
[2021-08-10 05:52] LABS: ABNORMAL LYMPHS % (MANUAL) 0 %; BAND NEUTROPHILS % (MANUAL) 0 %
[2021-08-10 05:58] LABS: CALCIUM 8.2 mg/dL (8.5-10.3); CREATININE 0.8 mg/dL (0.6-1.2); MAGNESIUM 2.3 mg/dL (1.7-2.8); PHOSPHORUS 2.8 mg/dL (2.5-4.6)
[2021-08-10 06:05] LABS: LYMPHOCYTES # (MANUAL) 0.9 10^3/uL (1.5-3.5); LYMPHOCYTES % (MANUAL) 9 %; NEUTROPHILS # (MANUAL) 8.1 10^3/uL (1.5-6.6)
[2021-08-10 06:06] LABS: DIFFERENTIAL COMMENT MANUAL DIFFERENTIAL; PLATELET ESTIMATE, MANUAL NORMAL (130-450,000) (NORMAL); PLATELET MORPHOLOGY NORMAL APPEARANCE (NORMAL); RBC MORPHOLOGY (MULTIPLE) NORMAL APPEARANCE (NORMAL); WBC MORPHOLOGY (MULTIPLE) NORMAL APPEARANCE (NORMAL)
--- NOTE | 2021-08-10 08:33 | PROVIDER PROGRESS NOTE ---
Assessment/Plan - Problem List (1) Acute respiratory failure with hypoxia Assessment/Plan: This is secondary to COVID-19 pneumonia. He is currently on an FiO2 of 70% on the BiPAP with his oxygen saturation at 92- 97%. Remdesivir day 02/18. Dexamethasone day 02/23 Chest x-ray done 08/08/2021 showed improvement in bilateral patchy interstitial infiltrates when compared to the x-ray of 08/06/2021. (2) Pneumonia due to COVID-19 virus Assessment/Plan: He is currently on an FiO2 of 70% on the BiPAP with his oxygen saturation at 92- 97%. Remdesivir day 02/18. Dexamethasone day 02/23 Chest x-ray done 08/08/2021 showed improvement in bilateral patchy interstitial infiltrates when compared to the x-ray of 08/06/2021. (3) Acute kidney injury Assessment/Plan: Improved/Resolved. Creatinine today is 0.8 with an estimated GFR of 96 (4) Elevated liver enzymes Assessment/Plan: Improving Likely secondary to COVID-19 infection. AST:32>111 ALT:69>63 Anticipate further improvement (5) Obstructive sleep apnea on CPAP Assessment/Plan: Currently on bipap (6) Chronic back pain Assessment/Plan: Pain management as needed - Current Meds Current Meds: Current Medications Generic Name Dose Route Start Last Admin Trade Name Freq PRN Reason Stop Dose Admin Ascorbic Acid 500 mg 08/07/21 11:00 08/09/21 08:58 Ascorbic Acid 500 Mg Tablet PO 500 mg DAILY SHAUN Administration Cholecalciferol 5,000 unit 08/07/21 11:00 08/09/21 08:58 Cholecalciferol 5,000 Unit Capsule PO 08/16/21 09:01 5,000 unit DAILY SHAUN Administration Dexamethasone 6 mg 08/07/21 09:00 08/09/21 08:58 Dexamethasone 4 Mg/Ml Vial IVP 08/15/21 09:01 6 mg DAILY SHAUN Administration Docusate Sodium 250 - 500 mg 08/08/21 09:00 08/09/21 08:59 Docusate Sodium 250 Mg Capsule PO 250 mg DAILY SHAUN Administration Enoxaparin Sodium 40 mg 08/06/21 16:00 08/09/21 20:32 Enoxaparin 40 Mg/0.4 Ml Syringe SUBQ 40 mg BID SHAUN Administration Guaifenesin 10 ml 08/06/21 18:26 08/09/21 20:48 Guaifenesin/Dextromethorphan 10 Ml Udc PO 10 ml Q6HR PRN Administration Cough Remdesivir 100 mg/ Sodium 250 mls @ 200 mls/hr 08/08/21 09:00 08/09/21 10:50 Chloride IV 08/10/21 10:14 Infused DAILY SHAUN Infusion Lorazepam 0.5 mg 08/08/21 12:32 08/09/21 20:48 Lorazepam 0.5 Mg Tablet PO 0.5 mg Q6H PRN Administration Anxiety Morphine Sulfate 2 mg 08/08/21 20:29 08/09/21 20:48 Morphine 2 Mg/Ml Carpuject IVP 2 mg Q2HR PRN Administration Dyspnea Polyethylene Glycol 17 gm 08/08/21 09:00 08/09/21 09:00 Polyethylene Glycol 3350 17 Gm Packet PO 17 gm DAILY SHAUN Administration Senna 8.6 - 17.2 mg 08/08/21 09:00 08/09/21 08:58 Senna 8.6 Mg Tablet PO 8.6 mg DAILY SHAUN Administration Sodium Chloride 10 ml 08/06/21 13:14 08/09/21 05:22 Sodium Chloride Flush 0.9% 10 Ml Syringe IVP 10 ml PRN PRN Administration NEEDED PER PROVIDER ORDERS Sodium Chloride 10 ml 08/06/21 17:00 08/10/21 00:49 Sodium Chloride Flush 0.9% 10 Ml Syringe IVP Not Given 0100,0900,1700 SHAUN Sodium Chloride 10 ml 08/07/21 01:00 08/10/21 00:49 Sodium Chloride Flush 0.9% 10 Ml Syringe IVP Not Given 0100,0900,1700 SHAUN Sodium Chloride 10 ml 08/07/21 00:56 08/09/21 20:51 Sodium Chloride Flush 0.9% 10 Ml Syringe IVP 10 ml PRN PRN Administration NEEDED PER PROVIDER ORDERS Throat Lozenges 1 lozenge 08/06/21 17:29 08/06/21 21:11 Benzocaine/Menthol Lozenge MM 1 lozenge Q2HR PRN Administration Throat pain Zinc Sulfate 220 mg 08/07/21 11:00 08/09/21 08:58 Zinc Sulfate 220 Mg Capsule PO 08/11/21 09:01 220 mg DAILY SHAUN Administration - Lab Result Fish Bone Diagrams: 08/10/21 05:09 08/10/21 05:09 - Additional Planning My Orders: My Active Orders 08/10/21 08:00 Calcium Carbonate [Tums] 1,250 mg PO Q4H 08/11/21 05:00 BMP - BASIC METABOLIC PANEL [CHEM] DAILYLAB CALCIUM, IONIZED ([facility]) [BG] DAILYLAB CBC - COMP BLD CT W/AUTO DIFF [HEME] DAILYLAB MAGNESIUM [CHEM] DAILYLAB PHOSPHORUS [CHEM] DAILYLAB 08/12/21 05:00 BMP - BASIC METABOLIC PANEL [CHEM] DAILYLAB CALCIUM, IONIZED ([facility]) [BG] DAILYLAB CBC - COMP BLD CT W/AUTO DIFF [HEME] DAILYLAB MAGNESIUM [CHEM] DAILYLAB PHOSPHORUS [CHEM] DAILYLAB 08/13/21 05:00 BMP - BASIC METABOLIC PANEL [CHEM] DAILYLAB CALCIUM, IONIZED ([facility]) [BG] DAILYLAB CBC - COMP BLD CT W/AUTO DIFF [HEME] DAILYLAB MAGNESIUM [CHEM] DAILYLAB PHOSPHORUS [CHEM] DAILYLAB 08/14/21 05:00 BMP - BASIC METABOLIC PANEL [CHEM] DAILYLAB Subjective - Subjective Patient Reports: Other (Patient resting comfortably in bed. He denied any complaints. He is currently on BiPAP with an FiO2 of 70%. His oxygen saturation is between 92 and 97%.) Objective Vital Signs: Vital Signs - 24 hr 08/09/21 08/09/21 08/09/21 08:45 11:22 12:31 Temperature 36.9 C 37 C Heart Rate 67 Heart Rate [ 68 72 Brachial] Respiratory 31 H 28 H Rate Blood Pressure 130/74 135/79 H [Right Brachial artery] O2 Saturation 92 90 L 08/09/21 08/09/21 08/09/21 14:41 16:15 17:33 Temperature 36.9 C Heart Rate 64 64 Heart Rate [ 70 Brachial] Respiratory 30 H Rate Blood Pressure 141/76 H [Right Brachial artery] O2 Saturation 92 08/09/21 08/09/21 08/09/21 19:19 19:20 21:40 Temperature 36.9 C Heart Rate 78 61 Heart Rate [ 74 Brachial] Respiratory 27 H Rate Blood Pressure 143/77 H [Right Brachial artery] O2 Saturation 92 08/09/21 08/10/21 08/10/21 23:25 00:00 01:45 Temperature Heart Rate 73 62 Heart Rate [ 67 Brachial] Respiratory 28 H Rate Blood Pressure 131/82 H [Right Brachial artery] O2 Saturation 92 08/10/21 08/10/21 08/10/21 03:50 04:00 05:45 Temperature Heart Rate 61 63 Heart Rate [ 62 Brachial] Respiratory 21 Rate Blood Pressure 134/75 H [Right Brachial artery] O2 Saturation 97 08/10/21 08/10/21 06:43 07:34 Temperature 36.6 C Heart Rate 66 Heart Rate [ Brachial] Respiratory Rate Blood Pressure [Right Brachial artery] O2 Saturation Oxygen O2 Source BIPAP Oxygen Flow Rate 15 I&O (Last 24 Hrs): Intake and Output Totals x24h 08/08/21 08/09/21 08/10/21 23:59 23:59 23:59 Intake Total 1560 1350 400 Output Total 1010 1900 325 Balance 550 -550 75 Comments/Notes: General: Alert, Oriented x3, Mild distress Neck: Supple, No JVD Neuro: Alert, Oriented Times 3 Cardiovascular: Regular rate, Normal S1, Normal S2 Respiratory: Chest non-tender, Other (Crackles on lung bases. Tachypnea improved. Mild dyspnea.) Abdomen: Normal bowel sounds, Soft, No tenderness Extremities: No clubbing, No cyanosis, No edema Skin: No rashes, No breakdown, No significant lesion - Results Results: Laboratory Results WBC 10.0 x10^3/uL (4.8-10.8) 08/10/21 05:09 RBC 5.56 10^6/uL (4.70-6.10) 08/10/21 05:09 Hgb 15.4 g/dL (14.0-18.0) 08/10/21 05:09 Hct 48.0 % (42.0-52.0) 08/10/21 05:09 MCV 86.3 fL (80.0-94.0) 08/10/21 05:09 MCH 27.7 pg (27.0-31.0) 08/10/21 05:09 MCHC 32.1 g/dL (32.0-36.0) 08/10/21 05:09 RDW 15.4 % (12.0-15.0) H 08/10/21 05:09 Plt Count 348 10^3/uL (130-450) 08/10/21 05:09 MPV 11.1 fL (7.4-11.4) 08/10/21 05:09 Neut # (Auto) Not Reportable 08/10/21 05:09 Lymph # (Auto) Not Reportable 08/10/21 05:09 [place] # (Auto) Not Reportable 08/10/21 05:09 Eos # (Auto) Not Reportable 08/10/21 05:09 Baso # (Auto) Not Reportable 08/10/21 05:09 Absolute Nucleated RBC Not Reportable 08/10/21 05:09 Total Counted 100 08/10/21 05:09 Band Neuts % (Manual) 0 % (0-10) 08/10/21 05:09 Abnorm Lymph % (Manual) 0 % 08/10/21 05:09 Nucleated RBC % Not Reportable 08/10/21 05:09 Neutrophils # (Manual) 8.1 10^3/uL (1.5-6.6) H 08/10/21 05:09 Lymphocytes # (Manual) 0.9 10^3/uL (1.5-3.5) L 08/10/21 05:09 Monocytes # (Manual) 1.0 10^3/uL (0.0-1.0) 08/10/21 05:09 Eosinophils # (Manual) 0.0 10^3/uL (0-0.7) 08/10/21 05:09 Basophils # (Manual) 0.0 10^3/uL (0-0.1) 08/10/21 05:09 Differential Comment MANUAL DIFFERENTIAL 08/10/21 05:09 WBC Morphology NORMAL APPEARANCE (NORMAL) 08/10/21 05:09 Platelet Estimate NORMAL (130-450,000) (NORMAL) 08/10/21 05:09 Platelet Morphology NORMAL APPEARANCE (NORMAL) 08/10/21 05:09 RBC Morph Micro Appear NORMAL APPEARANCE (NORMAL) 08/10/21 05:09 D-Dimer 273.5 ng/mL (200.0-255.0) H 08/06/21 12:05 Bld Gas Analysis Time 0803 08/08/21 08:03 Sample Site LEFT RADIAL 08/08/21 08:03 ABG pH 7.49 (7.35-7.45) H 08/08/21 08:03 ABG pCO2 34 mmHg (34-45) 08/08/21 08:03 ABG pO2 59 mmHg (80-100) L 08/08/21 08:03 ABG HCO3 25.7 mmol/L (22.0-26.0) 08/08/21 08:03 ABG Total CO2 26.7 MMOL/L (21.0-29.0) 08/08/21 08:03 ABG O2 Saturation 93 % (94-98) L 08/08/21 08:03 ABG Base Excess 2.9 mmol/L (-2.0-3.0) 08/08/21 08:03 Benny Test POSITIVE 08/08/21 08:03 VBG pH 7.458 (7.31-7.41) H 08/10/21 05:09 Ionized Calcium 1.07 mmol/L (1.15-1.33) L 08/10/21 05:09 O2 Delivery Device VENTILATOR 08/08/21 08:03 Vent Mode SPON 08/08/21 08:03 FiO2 100.00 08/08/21 08:03 EPAP 8 cmH2O 08/08/21 08:03 IPAP 16 cmH2O 08/08/21 08:03 Sodium 141 mmol/L (135-145) 08/10/21 05:09 Potassium 4.0 mmol/L (3.5-5.0) 08/10/21 05:09 Chloride 101 mmol/L (101-111) 08/10/21 05:09 Carbon Dioxide 29 mmol/L (21-32) 08/10/21 05:09 Anion Gap 11.0 (6-13) 08/10/21 05:09 BUN 29 mg/dL (6-20) H 08/10/21 05:09 Creatinine 0.8 mg/dL (0.6-1.2) 08/10/21 05:09 Estimated GFR (MDRD) 96 (>89) 08/10/21 05:09 Glucose 118 mg/dL (70-100) H 08/10/21 05:09 Calcium 8.2 mg/dL (8.5-10.3) L 08/10/21 05:09 Phosphorus 2.8 mg/dL (2.5-4.6) 08/10/21 05:09 Magnesium 2.3 mg/dL (1.7-2.8) 08/10/21 05:09 Total Bilirubin 0.6 mg/dL (0.2-1.0) 08/07/21 08:12 AST 111 IU/L (10-42) H 08/07/21 08:12 ALT 63 IU/L (10-60) H 08/07/21 08:12 Alkaline Phosphatase 98 IU/L (42-121) 08/07/21 08:12 Troponin I High Sens 18.9 ng/L (2.3-19.7) 08/06/21 12:05 C-Reactive Protein 26.6 mg/dL (0-1.0) H 08/06/21 12:05 B-Natriuretic Peptide 51 pg/mL (5-100) 08/06/21 12:05 Total Protein 6.9 g/dL (6.7-8.2) 08/07/21 08:12 Albumin 2.9 g/dL (3.2-5.5) L 08/07/21 08:12 Globulin 4.0 g/dL (2.1-4.2) 08/07/21 08:12 Albumin/Globulin Ratio 0.7 (1.0-2.2) L 08/07/21 08:12 Lipase 35 U/L (22-51) 08/06/21 12:05 Urine Color DARK YELLOW 08/07/21 05:50 Urine Clarity CLEAR (CLEAR) 08/07/21 05:50 Urine pH 6.0 PH (5.0-7.5) 08/07/21 05:50 Ur Specific [place] 1.025 (1.002-1.030) 08/07/21 05:50 Urine Protein 100 mg/dL (NEGATIVE) H 08/07/21 05:50 Urine Glucose (UA) NEGATIVE mg/dL (NEGATIVE) 08/07/21 05:50 Urine Ketones 15 mg/dL (NEGATIVE) H 08/07/21 05:50 Urine Occult Blood SMALL (NEGATIVE) H 08/07/21 05:50 Urine Nitrite NEGATIVE (NEGATIVE) 08/07/21 05:50 Urine Bilirubin NEGATIVE (NEGATIVE) 08/07/21 05:50 Urine Urobilinogen 1 (NORMAL) E.U./dL (NORMAL) 08/07/21 05:50 Ur Leukocyte Esterase NEGATIVE (NEGATIVE) 08/07/21 05:50 Urine RBC 6-10 /HPF (0-5) H 08/07/21 05:50 Urine WBC 0-3 /HPF (0-3) 08/07/21 05:50 Ur Squamous Epith Cells RARE Squamous (<= Few) 08/07/21 05:50 Urine Bacteria Few /HPF (None Seen) 08/07/21 05:50 Urine Culture Comments NOT INDICATED 08/07/21 05:50 Nasal Screen MRSA (PCR) NEGATIVE (NEGATIVE) 08/07/21 01:46
[2021-08-10] MEDS: ENOXAPARIN 40 MG/0.4 ML SYRINGE SUBQ SCH ×2 (09:55→20:23)
[2021-08-10] MEDS: DEXAMETHASONE 4 MG/ML VIAL IVP SCH (09:55)
[2021-08-10] MEDS: REMDESIVIR 100MG VIAL 100 MG in SODIUM CHLORIDE 0.9% 250 ML IV SCH (09:56)
[2021-08-10] MEDS: SENNA 8.6 MG TABLET PO SCH (14:00)
[2021-08-10] MEDS: CALCIUM CARBONATE CHEW 500 MG TABLET PO SCH ×2 (14:31→18:39)
[2021-08-10] MEDS: guaiFENesin/DEXTROMETHORPHAN 10 ML UDC PO PRN (14:32)
[2021-08-10] MEDS: ZINC SULFATE 220 MG CAPSULE PO SCH (14:32)
[2021-08-10] MEDS: CHOLECALCIFEROL 5,000 UNIT CAPSULE PO SCH (14:33)
[2021-08-10] MEDS: ASCORBIC ACID 500 MG TABLET PO SCH (14:34)
[2021-08-10] MEDS: DOCUSATE SODIUM 250 MG CAPSULE PO SCH (14:34)
[2021-08-10] MEDS: polyethylene glycoL 3350 17 GM PACKET PO SCH (15:08)
[2021-08-10 16:59] LABS: ABG BASE EXCESS 2.7 mmol/L (-2.0-3.0); ABG HCO3 25.3 mmol/L (22.0-26.0); ABG OXYGEN SATURATION 94 % (94-98); ABG PCO2 33 mmHg (34-45); ABG PO2 63 mmHg (80-100); ABG TCO2 26.3 MMOL/L (21.0-29.0)
[2021-08-10 17:00] LABS: ALLEN TEST POSITIVE
[2021-08-10] MEDS: LORazepam 0.5 MG TABLET PO PRN (20:22)
[2021-08-11] MEDS: MORPHINE 2 MG/ML CARPUJECT IVP PRN ×2 (01:43→20:55)
[2021-08-11] MEDS: SODIUM CHLORIDE FLUSH 0.9% 10 ML SYRINGE IVP SCH ×6 (01:43→20:55)
[2021-08-11 05:42] LABS: BASOPHILS % (AUTO) 0.4 %; EOSINOPHILS % (AUTO) 0.1 %; HCT - HEMATOCRIT 47.8 % (42.0-52.0); HGB - HEMOGLOBIN 15.5 g/dL (14.0-18.0); LYMPHOCYTES % (AUTO) 9.9 %; MEAN CORPUSCULAR HEMOGLOBIN 28.1 pg (27.0-31.0); MEAN CORPUSCULAR HGB CONC 32.4 g/dL (32.0-36.0); MEAN CORPUSCULAR VOLUME 86.6 fL (80.0-94.0); MONOCYTES % (AUTO) 8.6 %; NEUTROPHILS % (AUTO) 78.1 %; PLT - PLATELET COUNT 329 10^3/uL (130-450); RED BLOOD COUNT 5.52 10^6/uL (4.70-6.10); RED CELL DISTRIBUTION WIDTH 15.4 % (12.0-15.0); WHITE BLOOD COUNT 10.9 x10^3/uL (4.8-10.8)
[2021-08-11 05:45] LABS: ABNORMAL LYMPHS % (MANUAL) 0 %; CALCIUM, IONIZED 1.11 mmol/L (1.15-1.33); VBG PH 7.437 (7.31-7.41)
[2021-08-11 06:01] LABS: CALCIUM 8.9 mg/dL (8.5-10.3); CREATININE 0.8 mg/dL (0.6-1.2); MAGNESIUM 2.5 mg/dL (1.7-2.8); POTASSIUM 4.1 mmol/L (3.5-5.0)
[2021-08-11 06:27] LABS: BAND NEUTROPHILS % (MANUAL) 1 %; DIFFERENTIAL COMMENT MANUAL DIFFERENTIAL; LYMPHOCYTES # (MANUAL) 0.9 10^3/uL (1.5-3.5); LYMPHOCYTES % (MANUAL) 8 %; MONOCYTES # (MANUAL) 1.3 10^3/uL (0.0-1.0); MYELOCYTES % (MANUAL) 1 %; NEUTROPHILS # (MANUAL) 8.6 10^3/uL (1.5-6.6); PLATELET ESTIMATE, MANUAL NORMAL (130-450,000) (NORMAL); PLATELET MORPHOLOGY NORMAL APPEARANCE (NORMAL); RBC MORPHOLOGY (MULTIPLE) NORMAL APPEARANCE (NORMAL); WBC MORPHOLOGY (MULTIPLE) NORMAL APPEARANCE (NORMAL)
--- NOTE | 2021-08-11 07:45 | PROVIDER PROGRESS NOTE ---
Assessment/Plan - Problem List (1) Acute respiratory failure with hypoxia Assessment/Plan: This is secondary to COVID-19 pneumonia. He is currently on an FiO2 of 70% on the BiPAP with his oxygen saturation at 91%. Remdesivir completed 08/10/21. Dexamethasone day 03/26 Chest x-ray done 08/11/2021 did not show any significant change from the previous Patient administered lasix 40mg IV for pulm vasc congestion and crackles heard. Will stop on 08/14/21 (2) Pneumonia due to COVID-19 virus Assessment/Plan: He is currently on an FiO2 of 70% on the BiPAP with his oxygen saturation at 91%. Remdesivir completed 08/10/21. Dexamethasone day 03/26 Chest x-ray done 08/11/2021 did not show any significant change from the previous Patient administered lasix 40mg IV for pulm vasc congestion and crackles heard. Will stop on 08/14/21 (3) Acute kidney injury Assessment/Plan: Improved/Resolved. Creatinine today is 0.8 with an estimated GFR of 96 (4) Elevated liver enzymes Assessment/Plan: Improving Likely secondary to COVID-19 infection. AST:32>111 ALT:69>63 Anticipate further improvement (5) Obstructive sleep apnea on CPAP Assessment/Plan: Currently on bipap (6) Chronic back pain Assessment/Plan: Pain management as needed - Current Meds Current Meds: Current Medications Generic Name Dose Route Start Last Admin Trade Name Freq PRN Reason Stop Dose Admin Ascorbic Acid 500 mg 08/07/21 11:00 08/10/21 14:34 Ascorbic Acid 500 Mg Tablet PO 500 mg DAILY SHAUN Administration Cholecalciferol 5,000 unit 08/07/21 11:00 08/10/21 14:33 Cholecalciferol 5,000 Unit Capsule PO 08/16/21 09:01 5,000 unit DAILY SHAUN Administration Dexamethasone 6 mg 08/07/21 09:00 08/10/21 09:55 Dexamethasone 4 Mg/Ml Vial IVP 08/15/21 09:01 6 mg DAILY SHAUN Administration Docusate Sodium 250 - 500 mg 08/08/21 09:00 08/10/21 14:34 Docusate Sodium 250 Mg Capsule PO 250 mg DAILY SHAUN Administration Enoxaparin Sodium 40 mg 08/06/21 16:00 08/10/21 20:23 Enoxaparin 40 Mg/0.4 Ml Syringe SUBQ 40 mg BID SHAUN Administration Guaifenesin 10 ml 08/06/21 18:26 08/10/21 14:32 Guaifenesin/Dextromethorphan 10 Ml Udc PO 10 ml Q6HR PRN Administration Cough Lorazepam 0.5 mg 08/08/21 12:32 08/10/21 20:22 Lorazepam 0.5 Mg Tablet PO 0.5 mg Q6H PRN Administration Anxiety Morphine Sulfate 2 mg 08/08/21 20:29 08/11/21 01:43 Morphine 2 Mg/Ml Carpuject IVP 2 mg Q2HR PRN Administration Dyspnea Polyethylene Glycol 17 gm 08/08/21 09:00 08/10/21 15:08 Polyethylene Glycol 3350 17 Gm Packet PO Not Given DAILY SHAUN Senna 8.6 - 17.2 mg 08/08/21 09:00 08/10/21 14:00 Senna 8.6 Mg Tablet PO 8.6 mg DAILY SHAUN Administration Sodium Chloride 10 ml 08/06/21 13:14 08/09/21 05:22 Sodium Chloride Flush 0.9% 10 Ml Syringe IVP 10 ml PRN PRN Administration NEEDED PER PROVIDER ORDERS Sodium Chloride 10 ml 08/06/21 17:00 08/11/21 01:43 Sodium Chloride Flush 0.9% 10 Ml Syringe IVP 10 ml 0100,0900,1700 SHAUN Administration Sodium Chloride 10 ml 08/07/21 01:00 08/10/21 20:23 Sodium Chloride Flush 0.9% 10 Ml Syringe IVP 10 ml 0100,0900,1700 SHAUN Administration Sodium Chloride 10 ml 08/07/21 00:56 08/09/21 20:51 Sodium Chloride Flush 0.9% 10 Ml Syringe IVP 10 ml PRN PRN Administration NEEDED PER PROVIDER ORDERS Throat Lozenges 1 lozenge 08/06/21 17:29 08/06/21 21:11 Benzocaine/Menthol Lozenge MM 1 lozenge Q2HR PRN Administration Throat pain Zinc Sulfate 220 mg 08/07/21 11:00 08/10/21 14:32 Zinc Sulfate 220 Mg Capsule PO 08/11/21 09:01 220 mg DAILY SHAUN Administration - Lab Result Fish Bone Diagrams: 08/11/21 05:35 08/11/21 05:35 - Additional Planning My Orders: My Active Orders 08/10/21 Dinner Regular Diet [DIET] 08/10/21 16:56 RT - Obtain Arterial Specimen [RC] .ONCE 08/12/21 05:00 BMP - BASIC METABOLIC PANEL [CHEM] DAILYLAB CALCIUM, IONIZED ([facility]) [BG] DAILYLAB CBC - COMP BLD CT W/AUTO DIFF [HEME] DAILYLAB MAGNESIUM [CHEM] DAILYLAB PHOSPHORUS [CHEM] DAILYLAB 08/13/21 05:00 BMP - BASIC METABOLIC PANEL [CHEM] DAILYLAB CALCIUM, IONIZED ([facility]) [BG] DAILYLAB CBC - COMP BLD CT W/AUTO DIFF [HEME] DAILYLAB MAGNESIUM [CHEM] DAILYLAB PHOSPHORUS [CHEM] DAILYLAB 08/14/21 05:00 BMP - BASIC METABOLIC PANEL [CHEM] DAILYLAB Subjective - Subjective Patient Reports: Other (Patient resting in bed. He appeared slightly more uncomfortable today. He also has been coughing significantly. He was briefly placed on high flow which he failed and is currently back on the bipap.) Objective Vital Signs: Vital Signs - 24 hr 08/10/21 08/10/21 08/10/21 09:00 13:00 15:47 Temperature Heart Rate 68 Heart Rate [ 73 74 Monitoring electrodes] Respiratory 30 H 21 Rate Blood Pressure 133/76 H 143/69 H [Right Brachial artery] O2 Saturation 94 94 08/10/21 08/10/21 08/11/21 17:00 20:00 01:00 Temperature 37 C Heart Rate 90 Heart Rate [ 85 68 Monitoring electrodes] Respiratory 21 24 Rate Blood Pressure 148/68 H 148/74 H [Right Brachial artery] O2 Saturation 92 92 08/11/21 04:00 Temperature Heart Rate 90 Heart Rate [ 90 Monitoring electrodes] Respiratory 24 Rate Blood Pressure 133/71 H [Right Brachial artery] O2 Saturation 91 L Oxygen O2 Source BIPAP Oxygen Flow Rate 15 I&O (Last 24 Hrs): Intake and Output Totals x24h 08/09/21 08/10/21 08/11/21 23:59 23:59 23:59 Intake Total 1350 1550 110 Output Total 1900 945 300 Balance -550 605 -190 General: Alert, Oriented x3, Mild distress HEENT: PERRLA, EOMI Neck: Supple, No JVD Neuro: Alert, Oriented Times 3 Cardiovascular: Regular rate, Normal S1, Normal S2 Respiratory: Chest non-tender, Other (Mild respiratory distress, Crackles noted on left) Abdomen: Normal bowel sounds, Soft Extremities: No clubbing, No edema, No tenderness/swelling Skin: No rashes, No breakdown, No significant lesion - Results Results: Laboratory Results WBC 10.9 x10^3/uL (4.8-10.8) H 08/11/21 05:35 RBC 5.52 10^6/uL (4.70-6.10) 08/11/21 05:35 Hgb 15.5 g/dL (14.0-18.0) 08/11/21 05:35 Hct 47.8 % (42.0-52.0) 08/11/21 05:35 MCV 86.6 fL (80.0-94.0) 08/11/21 05:35 MCH 28.1 pg (27.0-31.0) 08/11/21 05:35 MCHC 32.4 g/dL (32.0-36.0) 08/11/21 05:35 RDW 15.4 % (12.0-15.0) H 08/11/21 05:35 Plt Count 329 10^3/uL (130-450) 08/11/21 05:35 MPV 11.0 fL (7.4-11.4) 08/11/21 05:35 Neut # (Auto) Not Reportable 08/11/21 05:35 Lymph # (Auto) Not Reportable 08/11/21 05:35 [place] # (Auto) Not Reportable 08/11/21 05:35 Eos # (Auto) Not Reportable 08/11/21 05:35 Baso # (Auto) Not Reportable 08/11/21 05:35 Absolute Nucleated RBC Not Reportable 08/11/21 05:35 Total Counted 100 08/11/21 05:35 Band Neuts % (Manual) 1 % (0-10) 08/11/21 05:35 Abnorm Lymph % (Manual) 0 % 08/11/21 05:35 Myelocytes % 1 % (-0) H 08/11/21 05:35 Nucleated RBC % Not Reportable 08/11/21 05:35 Neutrophils # (Manual) 8.6 10^3/uL (1.5-6.6) H 08/11/21 05:35 Lymphocytes # (Manual) 0.9 10^3/uL (1.5-3.5) L 08/11/21 05:35 Monocytes # (Manual) 1.3 10^3/uL (0.0-1.0) H 08/11/21 05:35 Eosinophils # (Manual) 0.0 10^3/uL (0-0.7) 08/11/21 05:35 Basophils # (Manual) 0.0 10^3/uL (0-0.1) 08/11/21 05:35 Differential Comment MANUAL DIFFERENTIAL 08/11/21 05:35 WBC Morphology NORMAL APPEARANCE (NORMAL) 08/11/21 05:35 Platelet Estimate NORMAL (130-450,000) (NORMAL) 08/11/21 05:35 Platelet Morphology NORMAL APPEARANCE (NORMAL) 08/11/21 05:35 RBC Morph Micro Appear NORMAL APPEARANCE (NORMAL) 08/11/21 05:35 D-Dimer 273.5 ng/mL (200.0-255.0) H 08/06/21 12:05 Bld Gas Analysis Time 1654 08/10/21 16:48 Sample Site LEFT RADIAL 08/10/21 16:48 ABG pH 7.50 (7.35-7.45) H 08/10/21 16:48 ABG pCO2 33 mmHg (34-45) L 08/10/21 16:48 ABG pO2 63 mmHg (80-100) L 08/10/21 16:48 ABG HCO3 25.3 mmol/L (22.0-26.0) 08/10/21 16:48 ABG Total CO2 26.3 MMOL/L (21.0-29.0) 08/10/21 16:48 ABG O2 Saturation 94 % (94-98) 08/10/21 16:48 ABG Base Excess 2.7 mmol/L (-2.0-3.0) 08/10/21 16:48 Benny Test POSITIVE 08/10/21 16:48 VBG pH 7.437 (7.31-7.41) H 08/11/21 05:35 Ionized Calcium 1.11 mmol/L (1.15-1.33) L 08/11/21 05:35 O2 Delivery Device BiPAP 08/10/21 16:48 Vent Mode SPON 08/08/21 08:03 FiO2 70.00 08/10/21 16:48 EPAP 5 cmH2O 08/10/21 16:48 IPAP 12 cmH2O 08/10/21 16:48 Sodium 139 mmol/L (135-145) 08/11/21 05:35 Potassium 4.1 mmol/L (3.5-5.0) 08/11/21 05:35 Chloride 102 mmol/L (101-111) 08/11/21 05:35 Carbon Dioxide 28 mmol/L (21-32) 08/11/21 05:35 Anion Gap 9.0 (6-13) 08/11/21 05:35 BUN 24 mg/dL (6-20) H 08/11/21 05:35 Creatinine 0.8 mg/dL (0.6-1.2) 08/11/21 05:35 Estimated GFR (MDRD) 96 (>89) 08/11/21 05:35 Glucose 106 mg/dL (70-100) H 08/11/21 05:35 Calcium 8.9 mg/dL (8.5-10.3) 08/11/21 05:35 Phosphorus 3.0 mg/dL (2.5-4.6) 08/11/21 05:35 Magnesium 2.5 mg/dL (1.7-2.8) 08/11/21 05:35 Total Bilirubin 0.6 mg/dL (0.2-1.0) 08/07/21 08:12 AST 111 IU/L (10-42) H 08/07/21 08:12 ALT 63 IU/L (10-60) H 08/07/21 08:12 Alkaline Phosphatase 98 IU/L (42-121) 08/07/21 08:12 Troponin I High Sens 18.9 ng/L (2.3-19.7) 08/06/21 12:05 C-Reactive Protein 26.6 mg/dL (0-1.0) H 08/06/21 12:05 B-Natriuretic Peptide 51 pg/mL (5-100) 08/06/21 12:05 Total Protein 6.9 g/dL (6.7-8.2) 08/07/21 08:12 Albumin 2.9 g/dL (3.2-5.5) L 08/07/21 08:12 Globulin 4.0 g/dL (2.1-4.2) 08/07/21 08:12 Albumin/Globulin Ratio 0.7 (1.0-2.2) L 08/07/21 08:12 Lipase 35 U/L (22-51) 08/06/21 12:05 Urine Color DARK YELLOW 08/07/21 05:50 Urine Clarity CLEAR (CLEAR) 08/07/21 05:50 Urine pH 6.0 PH (5.0-7.5) 08/07/21 05:50 Ur Specific [place] 1.025 (1.002-1.030) 08/07/21 05:50 Urine Protein 100 mg/dL (NEGATIVE) H 08/07/21 05:50 Urine Glucose (UA) NEGATIVE mg/dL (NEGATIVE) 08/07/21 05:50 Urine Ketones 15 mg/dL (NEGATIVE) H 08/07/21 05:50 Urine Occult Blood SMALL (NEGATIVE) H 08/07/21 05:50 Urine Nitrite NEGATIVE (NEGATIVE) 08/07/21 05:50 Urine Bilirubin NEGATIVE (NEGATIVE) 08/07/21 05:50 Urine Urobilinogen 1 (NORMAL) E.U./dL (NORMAL) 08/07/21 05:50 Ur Leukocyte Esterase NEGATIVE (NEGATIVE) 08/07/21 05:50 Urine RBC 6-10 /HPF (0-5) H 08/07/21 05:50 Urine WBC 0-3 /HPF (0-3) 08/07/21 05:50 Ur Squamous Epith Cells RARE Squamous (<= Few) 08/07/21 05:50 Urine Bacteria Few /HPF (None Seen) 08/07/21 05:50 Urine Culture Comments NOT INDICATED 08/07/21 05:50 Nasal Screen MRSA (PCR) NEGATIVE (NEGATIVE) 08/07/21 01:46 ABX Reporting Has patient been on IV antibiotics over the past 48 hours?: No
[2021-08-11] MEDS: ENOXAPARIN 40 MG/0.4 ML SYRINGE SUBQ SCH ×2 (08:13→20:54)
[2021-08-11] MEDS: DEXAMETHASONE 4 MG/ML VIAL IVP SCH (08:13)
[2021-08-11] MEDS: CHOLECALCIFEROL 5,000 UNIT CAPSULE PO SCH (08:15)
[2021-08-11] MEDS: SENNA 8.6 MG TABLET PO SCH (08:15)
[2021-08-11] MEDS: DOCUSATE SODIUM 250 MG CAPSULE PO SCH (08:15)
[2021-08-11] MEDS: ZINC SULFATE 220 MG CAPSULE PO SCH (08:15)
[2021-08-11] MEDS: guaiFENesin/DEXTROMETHORPHAN 10 ML UDC PO PRN (08:18)
[2021-08-11] MEDS: LORazepam 0.5 MG TABLET PO PRN ×2 (08:19→20:54)
[2021-08-11] MEDS: ASCORBIC ACID 500 MG TABLET PO SCH (08:19)
--- NOTE | 2021-08-11 08:28 | XRAY Report ---
PROCEDURE: Chest 1 View X-Ray INDICATIONS: Hypoxia, dyspnea TECHNIQUE: One view of the chest was acquired. COMPARISON: 08/08/2021 FINDINGS: Surgical changes and devices: None. Lungs and pleura: Cephalization of pulmonary vessels with increased interstitial and airspace opaciti es in both lungs with consolidation in the left lung base. These findings are all similar to the prio r examination. There may be a small right pleural effusion and a trace left pleural effusion, also no t significantly changed. Mediastinum: Mediastinal contours appear normal. Heart size is enlarged as seen on the prior study. Bones and chest wall: No suspicious bony lesions. Overlying soft tissues appear unremarkable. IMPRESSION: No significant interval change in bilateral interstitial and airspace opacities when compared with pr ior study. Findings are not entirely specific, consistent with either an infectious process or cardio genic pulmonary edema. Reviewed by: Juan Randall MD on 08/11/2021 8:27 AM PDT Approved by: Juan Randall MD on 08/11/2021 8:27 AM PDT Station ID: [id number]
[2021-08-11 09:55] LABS: ABG BASE EXCESS 2.3 mmol/L (-2.0-3.0); ABG HCO3 24.2 mmol/L (22.0-26.0); ABG PCO2 31 mmHg (34-45); ABG PH 7.52 (7.35-7.45); ABG TCO2 25.5 MMOL/L (21.0-29.0); ALLEN TEST POSITIVE
[2021-08-11 09:58] LABS: ABG OXYGEN SATURATION 80 % (94-98); ABG PO2 39 mmHg (80-100)
[2021-08-11] MEDS ORDERED: FUROSEMIDE 40 MG/4 ML VIAL IVP STA ×2 (10:47→16:20)
[2021-08-11] MEDS: polyethylene glycoL 3350 17 GM PACKET PO SCH (11:14)
[2021-08-12] MEDS: MORPHINE 2 MG/ML CARPUJECT IVP PRN ×3 (04:02→10:00)
[2021-08-12] MEDS: SODIUM CHLORIDE FLUSH 0.9% 10 ML SYRINGE IVP SCH ×6 (04:02→16:28)
[2021-08-12] MEDS: SODIUM CHLORIDE FLUSH 0.9% 10 ML SYRINGE IVP PRN (06:26)
[2021-08-12 07:00] LABS: CALCIUM 8.8 mg/dL (8.5-10.3); CREATININE 1.1 mg/dL (0.6-1.2); MAGNESIUM 2.4 mg/dL (1.7-2.8); PHOSPHORUS 3.7 mg/dL (2.5-4.6)
--- NOTE | 2021-08-12 08:16 | PROVIDER PROGRESS NOTE ---
Assessment/Plan - Problem List (1) Acute respiratory failure with hypoxia Assessment/Plan: This is secondary to COVID-19 pneumonia. Patient's clinical condition seem to worsen on 08/12/2021 morning. ABG on 08/12/21 morning showed pH 7.47, PCO2 35, PO2 51, bicarbonate 25 while on BiPAP at an FiO2 of 100% 10/8. After discussing with the patient he was agreeable to intubation. Anesthesia assisted with intubation on 08/12/21. Central and arterial lines placed. Patient required vecuronium drip for adequate ventilation. We will recheck ABG and adjust vent settings accordingly. Chest x-ray status post intubation and line placement showed mild pulmonary vascular congestion/edema Lasix 40 mg IV daily. To stop 08/14/2021 WBCs increased from 10.9 to 15.5 On Decadron 7. Rocephin 2/5, azithromycin 2/3. (2) Pneumonia due to COVID-19 virus Assessment/Plan: Patient's clinical condition seem to worsen on 08/12/2021 morning. ABG on 08/12/21 morning showed pH 7.47, PCO2 35, PO2 51, bicarbonate 25 while on BiPAP at an FiO2 of 100% 10/8. After discussing with the patient he was agreeable to intubation. Anesthesia assisted with intubation on 08/12/21. Central and arterial lines placed. Patient required vecuronium drip for adequate ventilation. We will recheck ABG and adjust vent settings accordingly. Chest x-ray status post intubation and line placement showed mild pulmonary vascular congestion/edema Lasix 40 mg IV daily. To stop 08/14/2021 WBCs increased from 10.9 to 15.5 On Decadron 7/10. Rocephin 2/5, azithromy (3) Acute kidney injury Assessment/Plan: Improved/Resolved. Creatinine today is 1.1 with an estimated GFR of 67 (4) Elevated liver enzymes Assessment/Plan: Improving Likely secondary to COVID-19 infection. AST:32>111 ALT:69>63 Anticipate further improvement (5) Obstructive sleep apnea on CPAP Assessment/Plan: Intubated on 08/12/2021. (6) Chronic back pain Assessment/Plan: Pain management as needed - Current Meds Current Meds: Current Medications Generic Name Dose Route Start Last Admin Trade Name Freq PRN Reason Stop Dose Admin Ascorbic Acid 500 mg 10/22/21 11:00 08/11/21 08:19 Ascorbic Acid 500 Mg Tablet PO 500 mg DAILY SHAUN Administration Cholecalciferol 5,000 unit 08/07/21 11:00 08/11/21 08:15 Cholecalciferol 5,000 Unit Capsule PO 08/16/21 09:01 5,000 unit DAILY SHAUN Administration Dexamethasone 6 mg 08/07/21 09:00 08/11/21 08:13 Dexamethasone 4 Mg/Ml Vial IVP 08/15/21 09:01 6 mg DAILY SHAUN Administration Docusate Sodium 250 - 500 mg 08/08/21 09:00 08/11/21 08:15 Docusate Sodium 250 Mg Capsule PO 250 mg DAILY SHAUN Administration Enoxaparin Sodium 40 mg 08/06/21 16:00 08/11/21 20:54 Enoxaparin 40 Mg/0.4 Ml Syringe SUBQ 40 mg BID SHAUN Administration Guaifenesin 10 ml 08/06/21 18:26 08/11/21 08:18 Guaifenesin/Dextromethorphan 10 Ml Udc PO 10 ml Q6HR PRN Administration Cough Lorazepam 0.5 mg 08/08/21 12:32 08/11/21 20:54 Lorazepam 0.5 Mg Tablet PO 0.5 mg Q6H PRN Administration Anxiety Morphine Sulfate 2 mg 08/08/21 20:29 08/12/21 06:23 Morphine 2 Mg/Ml Carpuject IVP 2 mg Q2HR PRN Administration Dyspnea Polyethylene Glycol 17 gm 08/08/21 09:00 08/11/21 11:14 Polyethylene Glycol 3350 17 Gm Packet PO Not Given DAILY SHAUN Senna 8.6 - 17.2 mg 08/08/21 09:00 08/11/21 08:15 Senna 8.6 Mg Tablet PO 8.6 mg DAILY SHAUN Administration Sodium Chloride 10 ml 08/06/21 13:14 08/12/21 06:26 Sodium Chloride Flush 0.9% 10 Ml Syringe IVP 10 ml PRN PRN Administration NEEDED PER PROVIDER ORDERS Sodium Chloride 10 ml 08/06/21 17:00 08/12/21 04:02 Sodium Chloride Flush 0.9% 10 Ml Syringe IVP 10 ml 0100,0900,1700 SAHUN Administration Sodium Chloride 10 ml 08/07/21 01:00 08/12/21 04:06 Sodium Chloride Flush 0.9% 10 Ml Syringe IVP Not Given 0100,0900,1700 SHAUN Sodium Chloride 10 ml 08/07/21 00:56 08/09/21 20:51 Sodium Chloride Flush 0.9% 10 Ml Syringe IVP 10 ml PRN PRN Administration NEEDED PER PROVIDER ORDERS Throat Lozenges 1 lozenge 08/06/21 17:29 08/06/21 21:11 Benzocaine/Menthol Lozenge MM 1 lozenge Q2HR PRN Administration Throat pain - Lab Result Fish Bone Diagrams: 08/12/21 08:19 08/12/21 06:43 - Additional Planning My Orders: My Active Orders 08/11/21 09:52 RT - Obtain Arterial Specimen [RC] .ONCE 08/11/21 16:21 Carpenter Insertion [RC] QSHIFT 08/12/21 05:00 CALCIUM, IONIZED ([facility]) [BG] DAILYLAB CBC - COMP BLD CT W/AUTO DIFF [HEME] DAILYLAB 08/12/21 09:00 FUROSEMIDE INJ 40mg VIAL [LASIX INJ 40 mg VIAL] 40 mg IVP DAILY 08/13/21 05:00 BMP - BASIC METABOLIC PANEL [CHEM] DAILYLAB CALCIUM, IONIZED ([facility]) [BG] DAILYLAB CBC - COMP BLD CT W/AUTO DIFF [HEME] DAILYLAB MAGNESIUM [CHEM] DAILYLAB PHOSPHORUS [CHEM] DAILYLAB 08/14/21 05:00 BMP - BASIC METABOLIC PANEL [CHEM] DAILYLAB Subjective - Subjective Patient Reports: Other (Patient's respiratory and clinical condition seem to worsen today. He appears very exhausted. Bruise on his nose from BiPAP machine noted. ABG showed a PO2 of 50. After discussion he acquiesced to intubation.) Objective Vital Signs: Vital Signs - 24 hr 08/11/21 08/11/21 08/11/21 08:22 10:50 13:00 Temperature Heart Rate 99 Heart Rate [ 99 91 Monitoring electrodes] Respiratory 25 H 28 H Rate Blood Pressure 132/66 H 139/74 H [Right Brachial artery] O2 Saturation 85 L 91 L 08/11/21 08/11/21 08/11/21 13:50 17:00 17:28 Temperature 38 C H Heart Rate 112 H 88 Heart Rate [ 97 Monitoring electrodes] Respiratory 35 H Rate Blood Pressure 142/90 H [Right Brachial artery] O2 Saturation 90 L 08/11/21 08/11/21 08/11/21 20:10 21:00 23:50 Temperature 37.3 C Heart Rate 88 88 Heart Rate [ 110 H Monitoring electrodes] Respiratory 36 H Rate Blood Pressure 142/85 H [Right Brachial artery] O2 Saturation 90 L 08/12/21 08/12/21 08/12/21 01:00 02:30 04:00 Temperature 37 C Heart Rate 100 Heart Rate [ 79 106 H Monitoring electrodes] Respiratory 32 H 25 H Rate Blood Pressure 131/82 H 111/66 [Right Brachial artery] O2 Saturation 94 94 08/12/21 08/12/21 05:49 07:50 Temperature Heart Rate 95 101 H Heart Rate [ Monitoring electrodes] Respiratory Rate Blood Pressure [Right Brachial artery] O2 Saturation Oxygen O2 Source Patient supplied BIPAP Oxygen Flow Rate 15 I&O (Last 24 Hrs): Intake and Output Totals x24h 08/10/21 08/11/21 08/12/21 23:59 23:59 23:59 Intake Total 1550 860 100 Output Total 945 2275 425 Balance 605 -1415 -325 General: Alert, Oriented x3, Other (Exhausted) HEENT: PERRLA, EOMI Neck: No JVD Neuro: Alert, Oriented Times 3 Cardiovascular: Other (Tachycardic) Respiratory: Other (Mild crackles on left) Abdomen: Normal bowel sounds, Soft, No masses Extremities: No clubbing, No edema, No tenderness/swelling Comments/Notes: Skin breakdown/ bruise on bridge of nose. - Results Results: Laboratory Results WBC 10.9 x10^3/uL (4.8-10.8) H 08/11/21 05:35 RBC 5.52 10^6/uL (4.70-6.10) 08/11/21 05:35 Hgb 15.5 g/dL (14.0-18.0) 08/11/21 05:35 Hct 47.8 % (42.0-52.0) 08/11/21 05:35 MCV 86.6 fL (80.0-94.0) 08/11/21 05:35 MCH 28.1 pg (27.0-31.0) 08/11/21 05:35 MCHC 32.4 g/dL (32.0-36.0) 08/11/21 05:35 RDW 15.4 % (12.0-15.0) H 08/11/21 05:35 Plt Count 329 10^3/uL (130-450) 08/11/21 05:35 MPV 11.0 fL (7.4-11.4) 08/11/21 05:35 Neut # (Auto) Not Reportable 08/11/21 05:35 Lymph # (Auto) Not Reportable 08/11/21 05:35 [place] # (Auto) Not Reportable 08/11/21 05:35 Eos # (Auto) Not Reportable 08/11/21 05:35 Baso # (Auto) Not Reportable 08/11/21 05:35 Absolute Nucleated RBC Not Reportable 08/11/21 05:35 Total Counted 100 08/11/21 05:35 Band Neuts % (Manual) 1 % (0-10) 08/11/21 05:35 Abnorm Lymph % (Manual) 0 % 08/11/21 05:35 Myelocytes % 1 % (-0) H 08/11/21 05:35 Nucleated RBC % Not Reportable 08/11/21 05:35 Neutrophils # (Manual) 8.6 10^3/uL (1.5-6.6) H 08/11/21 05:35 Lymphocytes # (Manual) 0.9 10^3/uL (1.5-3.5) L 08/11/21 05:35 Monocytes # (Manual) 1.3 10^3/uL (0.0-1.0) H 08/11/21 05:35 Eosinophils # (Manual) 0.0 10^3/uL (0-0.7) 08/11/21 05:35 Basophils # (Manual) 0.0 10^3/uL (0-0.1) 08/11/21 05:35 Differential Comment MANUAL DIFFERENTIAL 08/11/21 05:35 WBC Morphology NORMAL APPEARANCE (NORMAL) 08/11/21 05:35 Platelet Estimate NORMAL (130-450,000) (NORMAL) 08/11/21 05:35 Platelet Morphology NORMAL APPEARANCE (NORMAL) 08/11/21 05:35 RBC Morph Micro Appear NORMAL APPEARANCE (NORMAL) 08/11/21 05:35 D-Dimer 273.5 ng/mL (200.0-255.0) H 08/06/21 12:05 Bld Gas Analysis Time 0940 08/11/21 09:40 Sample Site LP 08/11/21 09:40 ABG pH 7.52 (7.35-7.45) H 08/11/21 09:40 ABG pCO2 31 mmHg (34-45) L 08/11/21 09:40 ABG pO2 39 mmHg (80-100) L* 08/11/21 09:40 ABG HCO3 24.2 mmol/L (22.0-26.0) 08/11/21 09:40 ABG Total CO2 25.5 MMOL/L (21.0-29.0) 08/11/21 09:40 ABG O2 Saturation 80 % (94-98) L* 08/11/21 09:40 ABG Base Excess 2.3 mmol/L (-2.0-3.0) 08/11/21 09:40 Benny Test POSITIVE 08/11/21 09:40 VBG pH 7.437 (7.31-7.41) H 08/11/21 05:35 Ionized Calcium 1.11 mmol/L (1.15-1.33) L 08/11/21 05:35 O2 Delivery Device HHFNC 08/11/21 09:40 O2 Liters/Min 55.00 LPM 08/11/21 09:40 Vent Mode SPON 08/08/21 08:03 FiO2 1.00 08/11/21 09:40 EPAP 5 cmH2O 08/10/21 16:48 IPAP 12 cmH2O 08/10/21 16:48 Sodium 141 mmol/L (135-145) 08/12/21 06:43 Potassium 4.0 mmol/L (3.5-5.0) 08/12/21 06:43 Chloride 101 mmol/L (101-111) 08/12/21 06:43 Carbon Dioxide 24 mmol/L (21-32) 08/12/21 06:43 Anion Gap 16.0 (6-13) H 08/12/21 06:43 BUN 32 mg/dL (6-20) H 08/12/21 06:43 Creatinine 1.1 mg/dL (0.6-1.2) 08/12/21 06:43 Estimated GFR (MDRD) 67 (>89) L 08/12/21 06:43 Glucose 140 mg/dL (70-100) H 08/12/21 06:43 Calcium 8.8 mg/dL (8.5-10.3) 08/12/21 06:43 Phosphorus 3.7 mg/dL (2.5-4.6) 08/12/21 06:43 Magnesium 2.4 mg/dL (1.7-2.8) 08/12/21 06:43 Total Bilirubin 0.6 mg/dL (0.2-1.0) 08/07/21 08:12 AST 111 IU/L (10-42) H 08/07/21 08:12 ALT 63 IU/L (10-60) H 08/07/21 08:12 Alkaline Phosphatase 98 IU/L (42-121) 08/07/21 08:12 Troponin I High Sens 18.9 ng/L (2.3-19.7) 08/06/21 12:05 C-Reactive Protein 26.6 mg/dL (0-1.0) H 08/06/21 12:05 B-Natriuretic Peptide 51 pg/mL (5-100) 08/06/21 12:05 Total Protein 6.9 g/dL (6.7-8.2) 08/07/21 08:12 Albumin 2.9 g/dL (3.2-5.5) L 08/07/21 08:12 Globulin 4.0 g/dL (2.1-4.2) 08/07/21 08:12 Albumin/Globulin Ratio 0.7 (1.0-2.2) L 08/07/21 08:12 Lipase 35 U/L (22-51) 08/06/21 12:05 Urine Color DARK YELLOW 08/07/21 05:50 Urine Clarity CLEAR (CLEAR) 08/07/21 05:50 Urine pH 6.0 PH (5.0-7.5) 08/07/21 05:50 Ur Specific [place] 1.025 (1.002-1.030) 08/07/21 05:50 Urine Protein 100 mg/dL (NEGATIVE) H 08/07/21 05:50 Urine Glucose (UA) NEGATIVE mg/dL (NEGATIVE) 08/07/21 05:50 Urine Ketones 15 mg/dL (NEGATIVE) H 08/07/21 05:50 Urine Occult Blood SMALL (NEGATIVE) H 08/07/21 05:50 Urine Nitrite NEGATIVE (NEGATIVE) 08/07/21 05:50 Urine Bilirubin NEGATIVE (NEGATIVE) 08/07/21 05:50 Urine Urobilinogen 1 (NORMAL) E.U./dL (NORMAL) 08/07/21 05:50 Ur Leukocyte Esterase NEGATIVE (NEGATIVE) 08/07/21 05:50 Urine RBC 6-10 /HPF (0-5) H 08/07/21 05:50 Urine WBC 0-3 /HPF (0-3) 08/07/21 05:50 Ur Squamous Epith Cells RARE Squamous (<= Few) 08/07/21 05:50 Urine Bacteria Few /HPF (None Seen) 08/07/21 05:50 Urine Culture Comments NOT INDICATED 08/07/21 05:50 Nasal Screen MRSA (PCR) NEGATIVE (NEGATIVE) 08/07/21 01:46 ABX Reporting Has patient been on IV antibiotics over the past 48 hours?: Yes
[2021-08-12 08:46] LABS: BASOPHILS # (AUTO) 0.1 10^3/uL (0.0-0.1); BASOPHILS % (AUTO) 0.4 %; EOSINOPHILS # (AUTO) 0.1 10^3/uL (0.0-0.7); EOSINOPHILS % (AUTO) 0.5 %; HCT - HEMATOCRIT 50.8 % (42.0-52.0); HGB - HEMOGLOBIN 16.6 g/dL (14.0-18.0); LYMPHOCYTES # (AUTO) 1.1 10^3/uL (1.5-3.5); LYMPHOCYTES % (AUTO) 7.3 %; MEAN CORPUSCULAR HEMOGLOBIN 27.9 pg (27.0-31.0); MEAN CORPUSCULAR HGB CONC 32.7 g/dL (32.0-36.0); MEAN CORPUSCULAR VOLUME 85.4 fL (80.0-94.0); MEAN PLATELET VOLUME 11.3 fL (7.4-11.4); MONOCYTES # (AUTO) 1.1 10^3/uL (0.0-1.0); MONOCYTES % (AUTO) 7.3 %; NEUTROPHILS # (AUTO) 12.2 10^3/uL (1.5-6.6); NEUTROPHILS % (AUTO) 79.1 %; NRBC ABSOLUTE COUNT (AUTO) 0.02 x10^3/uL; NUCLEATED RED BLOOD CELLS AUTO 0.1 /100WBC; PLT - PLATELET COUNT 236 10^3/uL (130-450); RED BLOOD COUNT 5.95 10^6/uL (4.70-6.10); RED CELL DISTRIBUTION WIDTH 15.6 % (12.0-15.0); WHITE BLOOD COUNT 15.5 x10^3/uL (4.8-10.8)
[2021-08-12 08:50] LABS: VBG PH 7.466 (7.31-7.41)
[2021-08-12 08:51] LABS: CALCIUM, IONIZED 1.1 mmol/L (1.15-1.33)
[2021-08-12 08:54] LABS: SLIDE REVIEW? Indicated
[2021-08-12 09:13] LABS: ABG PCO2 35 mmHg (34-45); ABG PH 7.47 (7.35-7.45)
[2021-08-12 09:14] LABS: ABG BASE EXCESS 1.9 mmol/L (-2.0-3.0); ABG MODE OF VENTILATION SYNCHRONOUS/TIMES; ABG RESPIRATORY RATE 12 b/min; ABG TCO2 26.1 MMOL/L (21.0-29.0); ALLEN TEST POSITIVE
[2021-08-12 09:18] LABS: ABG OXYGEN SATURATION 87 % (94-98); ABG PO2 51 mmHg (80-100)
[2021-08-12 09:25] LABS: RBC MORPHOLOGY (MULTIPLE) 2+ ANISOCYTOSIS (NORMAL)
[2021-08-12] MEDS: ENOXAPARIN 40 MG/0.4 ML SYRINGE SUBQ SCH ×2 (10:00→20:37)
[2021-08-12] MEDS: DEXAMETHASONE 4 MG/ML VIAL IVP SCH (10:01)
[2021-08-12] MEDS: FUROSEMIDE 40 MG/4 ML VIAL IVP SCH (10:01)
[2021-08-12] MEDS: ASCORBIC ACID 500 MG TABLET PO SCH (10:05)
[2021-08-12] MEDS: CHOLECALCIFEROL 5,000 UNIT CAPSULE PO SCH (10:05)
[2021-08-12] MEDS: DOCUSATE SODIUM 250 MG CAPSULE PO SCH (10:05)
[2021-08-12] MEDS: polyethylene glycoL 3350 17 GM PACKET PO SCH (10:05)
[2021-08-12] MEDS: SENNA 8.6 MG TABLET PO SCH (10:06)
[2021-08-12] MEDS ORDERED: SODIUM CHLORIDE 0.9% 1,000 ML IV ONE (10:39)
[2021-08-12] MEDS ORDERED: VECURONIUM 10 MG VIAL IVP ONE (10:55)
[2021-08-12] MEDS ORDERED: ROCURONIUM 50 MG/5 ML VIAL ONE ×2 (11:03→12:30)
[2021-08-12] MEDS: PROPOFOL 500 MG/50 ML 500 MG/50 ML VIAL IV SCH ×6 (11:08→23:14)
--- NOTE | 2021-08-12 11:18 | XRAY Report ---
PROCEDURE: Chest for Line Placement INDICATIONS: s/p intubation and central line placement TECHNIQUE: One view of the chest was acquired. COMPARISON: 08/11/2021 FINDINGS: Surgical changes and devices: Right internal jugular central venous catheter tip is in SVC. Enteric t ube tip is below the left hemidiaphragm. ET tube tip is approximately 5.3 cm above the murphy.. Lungs and pleura: No significant pleural effusions or pneumothorax. There is pulmonary vascular dalia estion. Pulmonary edema is also noted. Underlying small infiltrate cannot be excluded. Mediastinum: Mediastinal contours appear normal. Heart size is normal. Bones and chest wall: No suspicious bony lesions. Overlying soft tissues appear unremarkable. IMPRESSION: Tube and line positions as above. Mild pulmonary vascular congestion and mild pulmonary edema. No liza ss pneumothorax. Reviewed by: Adriel El MD on 08/12/2021 11:17 AM PDT Approved by: Adriel El MD on 08/12/2021 11:17 AM PDT Station ID: [id number]
--- NOTE | 2021-08-12 11:37 | ANESTHESIA PROCEDURE NOTE ---
Anesth Central Line Template - Central Line Central Line Preparation: Consent Obtained, Time out completed, Ultrasound used, Sterile prep and drape Central line location: Right IJ Central line type: Triple lumen Central line aftercare: Chlorhexidine disc placed, Placement confirmed, No complications, Pt tolerated well (emergent for access)
--- NOTE | 2021-08-12 11:38 | ANESTHESIA PROCEDURE NOTE ---
Anesthesia Intubation Template - Intubation Blade: positive: Brown Tube: Size-enter number (8.0), Cuffed, Marked at teeth-enter cm (22) Route: Oral Placement Confirmation: End tidal CO2, Direct visualization, Bilateral breath sounds Complications: No complications
[2021-08-12] MEDS: VECURONIUM 100 MG in SODIUM CHLORIDE 0.9% 100ML 100 ML IV SCH (12:10)
[2021-08-12 12:19] LABS: ABG BASE EXCESS -1.4 mmol/L (-2.0-3.0); ABG HCO3 25.3 mmol/L (22.0-26.0); ABG OXYGEN SATURATION 97 % (94-98); ABG PCO2 50 mmHg (34-45); ABG PH 7.33 (7.35-7.45); ABG PO2 97 mmHg (80-100); ABG TCO2 26.8 MMOL/L (21.0-29.0)
[2021-08-12 12:20] LABS: ABG MODE OF VENTILATION ACVC; ABG RESPIRATORY RATE 26 b/min
[2021-08-12] MEDS ORDERED: PROPOFOL 200 MG/20 ML VIAL IVP ONE (12:30)
[2021-08-12] MEDS ORDERED: PHENYLEPHRINE 10 MG/ML VIAL ONE (12:31)
[2021-08-12 14:31] LABS: ABG PCO2 49 mmHg (34-45); ABG PH 7.32 (7.35-7.45); ABG PO2 112 mmHg (80-100)
[2021-08-12 14:32] LABS: ABG BASE EXCESS -1.8 mmol/L (-2.0-3.0); ABG HCO3 24.9 mmol/L (22.0-26.0); ABG OXYGEN SATURATION 98 % (94-98); ABG TCO2 26.4 MMOL/L (21.0-29.0)
[2021-08-12 14:33] LABS: ABG MODE OF VENTILATION ACVC; ABG RESPIRATORY RATE 28 b/min
[2021-08-12] MEDS: AZITHROMYCIN INJ 500 MG in SODIUM CHLORIDE 0.9% 250 ML IV SCH (14:39)
[2021-08-12] MEDS: cefTRIAXone 1 GM in SODIUM CHLORIDE 0.9% MINIBAG 100 ML IV SCH (14:40)
[2021-08-12 16:07] LABS: ABG PCO2 42 mmHg (34-45); ABG PH 7.38 (7.35-7.45)
[2021-08-12 16:08] LABS: ABG BASE EXCESS -0.6 mmol/L (-2.0-3.0); ABG HCO3 24.6 mmol/L (22.0-26.0); ABG MODE OF VENTILATION AC/VC; ABG OXYGEN SATURATION 97 % (94-98); ABG PO2 91 mmHg (80-100); ABG RESPIRATORY RATE 28 b/min; ABG TCO2 25.9 MMOL/L (21.0-29.0)
[2021-08-12] MEDS: CHLORHEXIDINE GLUCONATE 15 ML UDC PO SCH (20:37)
[2021-08-12] MEDS ORDERED: SODIUM CHLORIDE FLUSH 0.9% 10 ML SYRINGE IVP PRN (23:12)
[2021-08-13] MEDS: PROPOFOL 500 MG/50 ML 500 MG/50 ML VIAL IV SCH ×10 (01:23→22:12)
[2021-08-13 05:59] LABS: BASOPHILS % (AUTO) 0.5 %; EOSINOPHILS % (AUTO) 0.1 %; HGB - HEMOGLOBIN 15.3 g/dL (14.0-18.0); LYMPHOCYTES % (AUTO) 6.6 %; MEAN CORPUSCULAR HEMOGLOBIN 27.7 pg (27.0-31.0); MEAN CORPUSCULAR HGB CONC 31.9 g/dL (32.0-36.0); MEAN PLATELET VOLUME 11.6 fL (7.4-11.4); MONOCYTES % (AUTO) 6.8 %; NEUTROPHILS % (AUTO) 79.2 %; PLT - PLATELET COUNT 234 10^3/uL (130-450); RED BLOOD COUNT 5.52 10^6/uL (4.70-6.10); RED CELL DISTRIBUTION WIDTH 15.5 % (12.0-15.0); WHITE BLOOD COUNT 15.1 x10^3/uL (4.8-10.8)
[2021-08-13 06:08] LABS: CALCIUM, IONIZED 1.15 mmol/L (1.15-1.33); VBG PH 7.36 (7.31-7.41)
[2021-08-13 06:09] LABS: ABNORMAL LYMPHS % (MANUAL) 0 %
[2021-08-13 06:15] LABS: MAGNESIUM 2.8 mg/dL (1.7-2.8); PHOSPHORUS 2.9 mg/dL (2.5-4.6)
[2021-08-13 06:17] LABS: ALBUMIN 2.6 g/dL (3.2-5.5); ALBUMIN/GLOBULIN RATIO 0.6 (1.0-2.2); CALCIUM 8.6 mg/dL (8.5-10.3); POTASSIUM 3.7 mmol/L (3.5-5.0); TOTAL PROTEIN 6.7 g/dL (6.7-8.2)
[2021-08-13 06:29] LABS: BAND NEUTROPHILS % (MANUAL) 8 %; DIFFERENTIAL COMMENT MANUAL DIFFERENTIAL; LYMPHOCYTES # (MANUAL) 2.3 10^3/uL (1.5-3.5); LYMPHOCYTES % (MANUAL) 15 %; METAMYELOCYTES % (MANUAL) 1 %; MONOCYTES # (MANUAL) 0.6 10^3/uL (0.0-1.0); MYELOCYTES % (MANUAL) 3 %; NEUTROPHILS # (MANUAL) 11.6 10^3/uL (1.5-6.6); PLATELET ESTIMATE, MANUAL NORMAL (130-450,000) (NORMAL); RBC MORPHOLOGY (MULTIPLE) NORMAL APPEARANCE (NORMAL)
[2021-08-13] MEDS: SODIUM CHLORIDE FLUSH 0.9% 10 ML SYRINGE IVP SCH ×6 (06:29→16:44)
[2021-08-13] MEDS: SODIUM CHLORIDE FLUSH 0.9% 10 ML SYRINGE IVP PRN (06:29)
[2021-08-13] MEDS ORDERED: POTASSIUM CHLOR 20 MEQ/100 ML 20 MEQ/100 ML BAG IV ONE (08:00)
--- NOTE | 2021-08-13 08:08 | PROVIDER PROGRESS NOTE ---
Assessment/Plan - Problem List (1) Acute respiratory failure with hypoxia Assessment/Plan: Secondary to COVID-19 pneumonia. Patient is currently intubated and sedated. Intubated on 08/14/21 Most recent ABG on 08/13/2021 at 1:30 PM was pH 7.39, PCO2 46, PO2 131, bicarbonate 27.4. Patient is on mode ACVC, tidal volume 450, PEEP 15, respiratory rate 23, FiO2 70 We'll continue to monitor ABG and adjust vent settings accordingly. Sedation is with propofol. Patient required vecuronium drip for adequate ventilation. We'll continue to use. WBC today 15.1. Decadron 8/10, Rocephin 3/5, azithromycin 3/3 Lasix 40 mg IV daily. To stop 08/14/2021 Chest x-ray ordered for the morning of 08/14/2021 Central and arterial line in place and functioning well. Patient receiving tube feeding. (2) Pneumonia due to COVID-19 virus Assessment/Plan: Patient is currently intubated and sedated. Intubated on 08/14/21 Most recent ABG on 08/13/2021 at 1:30 PM was pH 7.39, PCO2 46, PO2 131, bicarbonate 27.4. Patient is on mode ACVC, tidal volume 450, PEEP 15, respiratory rate 23, FiO2 70 We'll continue to monitor ABG and adjust vent settings accordingly. Sedation is with propofol. Patient required vecuronium drip for adequate ventilation. We'll continue to use. WBC today 15.1. Decadron 8/10, Rocephin 3/5, azithromycin 3/3 Lasix 40 mg IV daily. To stop 08/14/2021 Chest x-ray ordered for the morning of 08/14/2021 Central and arterial line in place and functioning well. Patient receiving tube feeding. (3) Acute kidney injury Assessment/Plan: Improved/Resolved. Creatinine today is 1.0 with an estimated GFR of 74 (4) Elevated liver enzymes Assessment/Plan: Improving Likely secondary to COVID-19 infection. AST:32>111 ALT:69>63 Anticipate further improvement Recheck Liver panel on 08/14/21 consider sedation with propofol (5) Obstructive sleep apnea on CPAP Assessment/Plan: Intubated on 08/12/2021. (6) Chronic back pain Assessment/Plan: Pain management as needed - Current Meds Current Meds: Current Medications Generic Name Dose Route Start Last Admin Trade Name Freq PRN Reason Stop Dose Admin Ascorbic Acid 500 mg 08/07/21 11:00 08/12/21 10:05 Ascorbic Acid 500 Mg Tablet PO Not Given DAILY SHAUN Chlorhexidine Gluconate 15 ml 08/12/21 21:00 08/12/21 20:37 Chlorhexidine Gluconate 15 Ml Udc PO 15 ml BID SHAUN Administration Cholecalciferol 5,000 unit 08/07/21 11:00 08/12/21 10:05 Cholecalciferol 5,000 Unit Capsule PO 08/16/21 09:01 Not Given DAILY SHAUN Dexamethasone 6 mg 08/07/21 09:00 08/12/21 10:01 Dexamethasone 4 Mg/Ml Vial IVP 08/15/21 09:01 6 mg DAILY SHAUN Administration Docusate Sodium 250 - 500 mg 08/08/21 09:00 08/12/21 10:05 Docusate Sodium 250 Mg Capsule PO Not Given DAILY SHAUN Enoxaparin Sodium 40 mg 08/06/21 16:00 08/12/21 20:37 Enoxaparin 40 Mg/0.4 Ml Syringe SUBQ 40 mg BID SHAUN Administration Furosemide 40 mg 08/12/21 09:00 08/12/21 10:01 Furosemide 40 Mg/4 Ml Vial IVP 08/14/21 09:01 40 mg DAILY SHAUN Administration Guaifenesin 10 ml 08/06/21 18:26 08/11/21 08:18 Guaifenesin/Dextromethorphan 10 Ml Udc PO 10 ml Q6HR PRN Administration Cough Propofol 500 mg in 50 mls @ 7.95 mls/hr 08/12/21 11:00 08/13/21 06:27 Diprivan IV 30 mcg/kg/min .Q6H18M SHAUN 23.85 mls/hr Administration Protocol 10 MCG/KG/MIN Norepinephrine Bitartrate 8 mg 250 mls @ 15 mls/hr 08/12/21 11:00 08/13/21 06:30 / Dextrose IV 6 mcg/min .[id number] SHAUN 11.25 mls/hr Titration Protocol 8 MCG/MIN Ceftriaxone Sodium 1 gm/ 100 mls @ 200 mls/hr 08/12/21 11:00 08/12/21 15:15 Sodium Chloride IV 08/16/21 09:29 Infused DAILY SHAUN Infusion Azithromycin 500 mg/ Sodium 250 mls @ 250 mls/hr 08/12/21 11:00 08/12/21 16:00 Chloride IV 08/14/21 09:59 0 mls/hr DAILY SHAUN Infusion Vecuronium [place] 100 mg/ 100 mls @ 7.95 mls/hr 08/12/21 12:00 08/13/21 06:30 Sodium Chloride IV 0.3 mcg/kg/min .[id number] SHAUN 2.385 mls/hr Titration Protocol 1 MCG/KG/MIN Lorazepam 0.5 mg 08/08/21 12:32 08/11/21 20:54 Lorazepam 0.5 Mg Tablet PO 0.5 mg Q6H PRN Administration Anxiety Morphine Sulfate 2 mg 08/08/21 20:29 08/12/21 10:00 Morphine 2 Mg/Ml Carpuject IVP 2 mg Q2HR PRN Administration Dyspnea Polyethylene Glycol 17 gm 08/08/21 09:00 08/12/21 10:05 Polyethylene Glycol 3350 17 Gm Packet PO Not Given DAILY SHAUN Senna 8.6 - 17.2 mg 08/08/21 09:00 08/12/21 10:06 Senna 8.6 Mg Tablet PO Not Given DAILY SHAUN Sodium Chloride 10 ml 08/06/21 13:14 08/13/21 06:29 Sodium Chloride Flush 0.9% 10 Ml Syringe IVP 10 ml PRN PRN Administration NEEDED PER PROVIDER ORDERS Sodium Chloride 10 ml 08/06/21 17:00 08/13/21 06:29 Sodium Chloride Flush 0.9% 10 Ml Syringe IVP 10 ml 0100,0900,1700 SHANU Administration Sodium Chloride 10 ml 08/07/21 01:00 08/13/21 06:31 Sodium Chloride Flush 0.9% 10 Ml Syringe IVP 10 ml 0100,0900,1700 SHAUN Administration Sodium Chloride 10 ml 08/07/21 00:56 08/09/21 20:51 Sodium Chloride Flush 0.9% 10 Ml Syringe IVP 10 ml PRN PRN Administration NEEDED PER PROVIDER ORDERS Sodium Chloride 20 ml 08/12/21 23:12 08/13/21 06:29 Sodium Chloride Flush 0.9% 10 Ml Syringe IVP 20 ml PRN PRN Administration After Blood Draw Throat Lozenges 1 lozenge 08/06/21 17:29 08/06/21 21:11 Benzocaine/Menthol Lozenge MM 1 lozenge Q2HR PRN Administration Throat pain - Lab Result Fish Bone Diagrams: 08/13/21 05:15 08/13/21 05:15 - Additional Planning My Orders: My Active Orders 08/12/21 09:00 FUROSEMIDE INJ 40mg VIAL [LASIX INJ 40 mg VIAL] 40 mg IVP DAILY 08/12/21 11:00 Azithromycin Inj [Zithromax Inj] 500 mg Sodium Chloride 0.9% [Normal Saline 0.9%] 250 ml IV DAILY Dextrose 5% [D5w] 242 ml NORepinephrine [Levophed] 8 mg IV 8 mcg/min Propofol 500 mg/50 ml [Diprivan] 500 mg in 50 ml IV 10 mcg/kg/min cefTRIAXone [Rocephin] 1 gm Sodium Chloride 0.9% Minibag [Normal Saline 0.9% Minibag] 100 ml IV DAILY 08/12/21 11:06 Arterial Line Care - ICU [RC] Q2HR 08/12/21 12:00 Sodium Chloride 0.9% 100Ml [Normal Saline 0.9% 100Ml] 100 ml Vecuronium [Norcuron] 100 mg IV 1 mcg/kg/min 08/12/21 12:14 RT - Obtain Arterial Specimen [RC] .ONCE 08/12/21 17:04 NPO except Meds [DIET] 08/12/21 17:10 Daily Weight [RC] DAILY Tube Feeding [RC] QSHIFT 08/12/21 18:51 Initial Ventilator Settings [RC] .ONCE 08/12/21 18:52 Ventilator Bundle Oral Care [RC] Q2H Ventilator Bundle [RC] Q8H Ventilator Care - ICU [RC] Q4HR 08/12/21 21:00 Chlorhexidine [Peridex] 15 ml PO BID 08/12/21 23:12 Sodium Chloride Flush 0.9% [Normal Saline Flush 0.9%] 20 ml IVP PRN PRN 08/12/21 23:45 Blood Glucose Checks - NPO [RC] 0600,1200,1800,0000 08/13/21 08:00 Potassium Chlor 20 Meq/100 ml [Potassium Chloride] 20 meq in 100 ml IV ONCE 08/13/21 08:04 ABG - ARTERIAL BLOOD GAS [BG] Stat 08/13/21 08:05 RT - Obtain Arterial Specimen [RC] .ONCE 08/14/21 05:00 BMP - BASIC METABOLIC PANEL [CHEM] DAILYLAB 08/15/21 05:00 COMPREHENSIVE METABOLIC PANEL [CHEM] Timed MAGNESIUM [CHEM] Timed PHOSPHORUS [CHEM] Timed PREALBUMIN [CHEM] Timed 08/18/21 05:00 COMPREHENSIVE METABOLIC PANEL [CHEM] Timed MAGNESIUM [CHEM] Timed PHOSPHORUS [CHEM] Timed PREALBUMIN [CHEM] Timed Subjective - Subjective Patient Reports: Other (Currently sedated and intubated thus unable to provide history. However the patient appears to be resting comfortably) Objective Vital Signs: Vital Signs - 24 hr 08/12/21 08/12/21 08/12/21 09:00 10:49 12:43 Temperature Heart Rate 91 77 Heart Rate [ 104 H Monitoring electrodes] Respiratory 29 H Rate Blood Pressure 133/89 H [Right Brachial artery] Blood Pressure [Right Radial artery] O2 Saturation 92 08/12/21 08/12/21 08/12/21 13:00 14:00 14:53 Temperature Heart Rate 72 Heart Rate [ 78 94 Monitoring electrodes] Respiratory 28 H 28 H Rate Blood Pressure 98/63 [Right Brachial artery] Blood Pressure 106/66 105/57 L [Right Radial artery] O2 Saturation 98 99 08/12/21 08/12/21 08/12/21 15:00 15:39 16:00 Temperature 36.8 C 36.8 C Heart Rate Heart Rate [ 90 84 Monitoring electrodes] Respiratory 28 H 28 H Rate Blood Pressure 114/85 H 119/79 [Right Brachial artery] Blood Pressure 103/54 L 96/53 L [Right Radial artery] O2 Saturation 95 94 08/12/21 08/12/21 08/12/21 17:00 17:36 18:00 Temperature Heart Rate 78 Heart Rate [ 78 77 Monitoring electrodes] Respiratory 28 H 28 H Rate Blood Pressure 92/68 108/69 [Right Brachial artery] Blood Pressure 100/61 108/56 L [Right Radial artery] O2 Saturation 92 92 08/12/21 08/12/21 08/12/21 18:59 19:45 20:00 Temperature 37.4 C Heart Rate 71 Heart Rate [ 74 68 Monitoring electrodes] Respiratory 28 H 28 H Rate Blood Pressure 106/65 113/70 [Right Brachial artery] Blood Pressure 98/53 L 105/55 L [Right Radial artery] O2 Saturation 95 91 L 08/12/21 08/12/21 08/12/21 21:00 21:45 22:00 Temperature 36.8 C Heart Rate 69 Heart Rate [ 76 68 Monitoring electrodes] Respiratory 28 H 28 H Rate Blood Pressure 109/68 128/76 [Right Brachial artery] Blood Pressure 103/55 L 105/53 L [Right Radial artery] O2 Saturation 91 L 92 08/12/21 08/12/21 08/13/21 23:00 23:45 00:00 Temperature Heart Rate 88 Heart Rate [ 71 74 Monitoring electrodes] Respiratory 28 H 28 H Rate Blood Pressure 123/78 128/82 H [Right Brachial artery] Blood Pressure 132/62 H 119/55 L [Right Radial artery] O2 Saturation 93 92 08/13/21 08/13/21 08/13/21 01:00 01:50 02:00 Temperature Heart Rate 88 Heart Rate [ 66 62 Monitoring electrodes] Respiratory 28 H 28 H Rate Blood Pressure 113/72 118/71 [Right Brachial artery] Blood Pressure 110/61 107/56 L [Right Radial artery] O2 Saturation 93 93 08/13/21 08/13/21 08/13/21 03:00 03:30 04:00 Temperature Heart Rate 68 Heart Rate [ 63 70 Monitoring electrodes] Respiratory 28 H 28 H Rate Blood Pressure 119/73 131/75 H [Right Brachial artery] Blood Pressure 107/55 L 120/57 L [Right Radial artery] O2 Saturation 94 93 08/13/21 08/13/21 08/13/21 05:00 05:20 06:00 Temperature 37.7 C Heart Rate 85 Heart Rate [ 85 69 Monitoring electrodes] Respiratory 28 H 28 H Rate Blood Pressure 144/83 H 127/85 H [Right Brachial artery] Blood Pressure 129/59 L 114/56 L [Right Radial artery] O2 Saturation 95 96 08/13/21 07:00 Temperature Heart Rate Heart Rate [ 70 Monitoring electrodes] Respiratory 28 H Rate Blood Pressure 135/72 H [Right Brachial artery] Blood Pressure 124/60 [Right Radial artery] O2 Saturation 96 Oxygen O2 Source Mechanical ventilator Oxygen Flow Rate 15 I&O (Last 24 Hrs): Intake and Output Totals x24h 08/11/21 08/12/21 08/13/21 23:59 23:59 23:59 Intake Total 860 807.005 7859.372 Output Total 3530 1510 395 Balance -1415 -549.786 627.372 General: Other (Sedated and intubated) HEENT: PERRLA, EOMI, Other (bruise on bridge of nose from bipap) Neck: Supple, No JVD Neuro: Other (Sedated and intubated) Cardiovascular: Regular rate, Normal S1, Normal S2 Respiratory: Other (Coarse breath sounds.) Abdomen: Normal bowel sounds, Soft, No tenderness Extremities: No clubbing, No cyanosis, No edema, No tenderness/swelling Comments/Notes: Bruise on bridge of nose from bipap - Results Results: Laboratory Results WBC 15.1 x10^3/uL (4.8-10.8) H 08/13/21 05:15 RBC 5.52 10^6/uL (4.70-6.10) 08/13/21 05:15 Hgb 15.3 g/dL (14.0-18.0) 08/13/21 05:15 Hct 48.0 % (42.0-52.0) 08/13/21 05:15 MCV 87.0 fL (80.0-94.0) 08/13/21 05:15 MCH 27.7 pg (27.0-31.0) 08/13/21 05:15 MCHC 31.9 g/dL (32.0-36.0) L 08/13/21 05:15 RDW 15.5 % (12.0-15.0) H 08/13/21 05:15 Plt Count 234 10^3/uL (130-450) 08/13/21 05:15 MPV 11.6 fL (7.4-11.4) H 08/13/21 05:15 Neut # (Auto) Not Reportable 08/13/21 05:15 Lymph # (Auto) Not Reportable 08/13/21 05:15 [place] # (Auto) Not Reportable 08/13/21 05:15 Eos # (Auto) Not Reportable 08/13/21 05:15 Baso # (Auto) Not Reportable 08/13/21 05:15 Absolute Nucleated RBC Not Reportable 08/13/21 05:15 Total Counted 100 08/13/21 05:15 Band Neuts % (Manual) 8 % (0-10) 08/13/21 05:15 Abnorm Lymph % (Manual) 0 % 08/13/21 05:15 Metamyelocytes % 1 % (-0) H 08/13/21 05:15 Myelocytes % 3 % (-0) H 08/13/21 05:15 Nucleated RBC % Not Reportable 08/13/21 05:15 Neutrophils # (Manual) 11.6 10^3/uL (1.5-6.6) H 08/13/21 05:15 Lymphocytes # (Manual) 2.3 10^3/uL (1.5-3.5) 08/13/21 05:15 Monocytes # (Manual) 0.6 10^3/uL (0.0-1.0) 08/13/21 05:15 Eosinophils # (Manual) 0.0 10^3/uL (0-0.7) 08/13/21 05:15 Basophils # (Manual) 0.0 10^3/uL (0-0.1) 08/13/21 05:15 Differential Comment MANUAL DIFFERENTIAL 08/13/21 05:15 Manual Slide Review Indicated 08/12/21 08:19 WBC Morphology NORMAL APPEARANCE (NORMAL) 08/11/21 05:35 Platelet Estimate NORMAL (130-450,000) (NORMAL) 08/13/21 05:15 Platelet Morphology NORMAL APPEARANCE (NORMAL) 08/11/21 05:35 RBC Morph Micro Appear NORMAL APPEARANCE (NORMAL) 08/13/21 05:15 D-Dimer 273.5 ng/mL (200.0-255.0) H 08/06/21 12:05 Bld Gas Analysis Time 1606 08/12/21 15:55 Sample Site A-LINE 08/12/21 15:55 ABG pH 7.38 (7.35-7.45) 08/12/21 15:55 ABG pCO2 42 mmHg (34-45) 08/12/21 15:55 ABG pO2 91 mmHg (80-100) 08/12/21 15:55 ABG HCO3 24.6 mmol/L (22.0-26.0) 08/12/21 15:55 ABG Total CO2 25.9 MMOL/L (21.0-29.0) 08/12/21 15:55 ABG O2 Saturation 97 % (94-98) 08/12/21 15:55 ABG Base Excess -0.6 mmol/L (-2.0-3.0) 08/12/21 15:55 Benny Test NOT APPLICABLE 08/12/21 15:55 VBG pH 7.360 (7.31-7.41) 08/13/21 05:15 Ionized Calcium 1.15 mmol/L (1.15-1.33) 08/13/21 05:15 Respiration Rate 28 b/min 08/12/21 15:55 O2 Delivery Device VENTILATOR 08/12/21 15:55 O2 Liters/Min 55.00 LPM 08/11/21 09:40 Vent Mode AC/VC 08/12/21 15:55 FiO2 90.00 08/12/21 15:55 Tidal Volume 450 mL 08/12/21 15:55 PEEP 16 cmH2O 08/12/21 15:55 EPAP 8 cmH2O 08/12/21 09:04 IPAP 10 cmH2O 08/12/21 09:04 Sodium 139 mmol/L (135-145) 08/13/21 05:15 Potassium 3.7 mmol/L (3.5-5.0) 08/13/21 05:15 Chloride 98 mmol/L (101-111) L 08/13/21 05:15 Carbon Dioxide 30 mmol/L (21-32) 08/13/21 05:15 Anion Gap 11.0 (6-13) 08/13/21 05:15 BUN 38 mg/dL (6-20) H 08/13/21 05:15 Creatinine 1.0 mg/dL (0.6-1.2) 08/13/21 05:15 Estimated GFR (MDRD) 74 (>89) L 08/13/21 05:15 Glucose 207 mg/dL (70-100) H 08/13/21 05:15 Calcium 8.6 mg/dL (8.5-10.3) 08/13/21 05:15 Phosphorus 2.9 mg/dL (2.5-4.6) 08/13/21 05:15 Magnesium 2.8 mg/dL (1.7-2.8) 08/13/21 05:15 Total Bilirubin 1.0 mg/dL (0.2-1.0) 08/13/21 05:15 AST 24 IU/L (10-42) 08/13/21 05:15 ALT 40 IU/L (10-60) 08/13/21 05:15 Alkaline Phosphatase 87 IU/L (42-121) 08/13/21 05:15 Troponin I High Sens 18.9 ng/L (2.3-19.7) 08/06/21 12:05 C-Reactive Protein 26.6 mg/dL (0-1.0) H 08/06/21 12:05 B-Natriuretic Peptide 51 pg/mL (5-100) 08/06/21 12:05 Total Protein 6.7 g/dL (6.7-8.2) 08/13/21 05:15 Albumin 2.6 g/dL (3.2-5.5) L 08/13/21 05:15 Globulin 4.1 g/dL (2.1-4.2) 08/13/21 05:15 Albumin/Globulin Ratio 0.6 (1.0-2.2) L 08/13/21 05:15 Prealbumin 9 mg/dL (18-45) L 08/13/21 05:15 Lipase 35 U/L (22-51) 08/06/21 12:05 Urine Color DARK YELLOW 08/07/21 05:50 Urine Clarity CLEAR (CLEAR) 08/07/21 05:50 Urine pH 6.0 PH (5.0-7.5) 08/07/21 05:50 Ur Specific [place] 1.025 (1.002-1.030) 08/07/21 05:50 Urine Protein 100 mg/dL (NEGATIVE) H 08/07/21 05:50 Urine Glucose (UA) NEGATIVE mg/dL (NEGATIVE) 08/07/21 05:50 Urine Ketones 15 mg/dL (NEGATIVE) H 08/07/21 05:50 Urine Occult Blood SMALL (NEGATIVE) H 08/07/21 05:50 Urine Nitrite NEGATIVE (NEGATIVE) 08/07/21 05:50 Urine Bilirubin NEGATIVE (NEGATIVE) 08/07/21 05:50 Urine Urobilinogen 1 (NORMAL) E.U./dL (NORMAL) 08/07/21 05:50 Ur Leukocyte Esterase NEGATIVE (NEGATIVE) 08/07/21 05:50 Urine RBC 6-10 /HPF (0-5) H 08/07/21 05:50 Urine WBC 0-3 /HPF (0-3) 08/07/21 05:50 Ur Squamous Epith Cells RARE Squamous (<= Few) 08/07/21 05:50 Urine Bacteria Few /HPF (None Seen) 08/07/21 05:50 Urine Culture Comments NOT INDICATED 08/07/21 05:50 Nasal Screen MRSA (PCR) NEGATIVE (NEGATIVE) 08/07/21 01:46 ABX Reporting Has patient been on IV antibiotics over the past 48 hours?: Yes
[2021-08-13] MEDS: VECURONIUM 100 MG in SODIUM CHLORIDE 0.9% 100ML 100 ML IV SCH (08:28)
[2021-08-13 08:31] LABS: ABG BASE EXCESS 3.4 mmol/L (-2.0-3.0); ABG HCO3 27.8 mmol/L (22.0-26.0); ABG OXYGEN SATURATION 98 % (94-98); ABG PCO2 41 mmHg (34-45); ABG PH 7.45 (7.35-7.45); ABG PO2 105 mmHg (80-100); ABG TCO2 29.1 MMOL/L (21.0-29.0)
[2021-08-13] MEDS: ASCORBIC ACID 500 MG TABLET PO SCH (08:31)
[2021-08-13] MEDS: cefTRIAXone 1 GM in SODIUM CHLORIDE 0.9% MINIBAG 100 ML IV SCH (08:31)
[2021-08-13] MEDS: CHLORHEXIDINE GLUCONATE 15 ML UDC PO SCH ×2 (08:31→21:03)
[2021-08-13] MEDS: AZITHROMYCIN INJ 500 MG in SODIUM CHLORIDE 0.9% 250 ML IV SCH (08:31)
[2021-08-13 08:32] LABS: ABG MODE OF VENTILATION ACVC; ABG RESPIRATORY RATE 28 b/min
[2021-08-13] MEDS: CHOLECALCIFEROL 5,000 UNIT CAPSULE PO SCH (08:32)
[2021-08-13] MEDS: DOCUSATE SODIUM 250 MG CAPSULE PO SCH (08:32)
[2021-08-13] MEDS: ENOXAPARIN 40 MG/0.4 ML SYRINGE SUBQ SCH ×2 (08:32→21:02)
[2021-08-13] MEDS: DEXAMETHASONE 4 MG/ML VIAL IVP SCH (08:32)
[2021-08-13] MEDS: FUROSEMIDE 40 MG/4 ML VIAL IVP SCH (08:33)
[2021-08-13] MEDS: polyethylene glycoL 3350 17 GM PACKET PO SCH (08:33)
[2021-08-13] MEDS: SENNA 8.6 MG TABLET PO SCH (08:33)
[2021-08-13 11:41] LABS: ABG HCO3 23.8 mmol/L (22.0-26.0); ABG OXYGEN SATURATION 98 % (94-98); ABG PCO2 33 mmHg (34-45); ABG PH 7.48 (7.35-7.45); ABG PO2 89 mmHg (80-100); ABG TCO2 24.8 MMOL/L (21.0-29.0)
[2021-08-13 11:42] LABS: ABG MODE OF VENTILATION ACVC; ABG RESPIRATORY RATE 28 b/min
[2021-08-13 13:38] LABS: ABG HCO3 27.4 mmol/L (22.0-26.0); ABG PCO2 46 mmHg (34-45); ABG PH 7.39 (7.35-7.45); ABG PO2 131 mmHg (80-100); ABG TCO2 28.8 MMOL/L (21.0-29.0)
[2021-08-13 13:39] LABS: ABG BASE EXCESS 1.9 mmol/L (-2.0-3.0); ABG MODE OF VENTILATION ACVC; ABG OXYGEN SATURATION 99 % (94-98); ABG RESPIRATORY RATE 23 b/min
[2021-08-14] MEDS: PROPOFOL 500 MG/50 ML 500 MG/50 ML VIAL IV SCH ×11 (00:03→22:31)
[2021-08-14] MEDS: SODIUM CHLORIDE FLUSH 0.9% 10 ML SYRINGE IVP SCH ×6 (02:29→17:49)
[2021-08-14 06:42] LABS: ALBUMIN 2.2 g/dL (3.2-5.5); BILIRUBIN,DIRECT 0.3 mg/dL (0.1-0.5); BILIRUBIN,TOTAL 0.9 mg/dL (0.2-1.0); CALCIUM 8.6 mg/dL (8.5-10.3); CREATININE 0.9 mg/dL (0.6-1.2); POTASSIUM 4.3 mmol/L (3.5-5.0)
[2021-08-14 07:58] LABS: MAGNESIUM 2.9 mg/dL (1.7-2.8); PHOSPHORUS 2.9 mg/dL (2.5-4.6)
--- NOTE | 2021-08-14 08:42 | XRAY Report ---
PROCEDURE: Chest 1 View X-Ray INDICATIONS: intubated, hypoxia, vasc congestion TECHNIQUE: One view of the chest was acquired. COMPARISON: Chest x-ray 08/12/2021 FINDINGS: Surgical changes and devices: Endotracheal tube, right-sided central venous catheter are unchanged. P revious nasogastric tube is not well visualized. Lungs and pleura: Bilateral, predominantly bibasilar opacities appearing slightly worse compared to p rior exam particularly within the right base. Mediastinum: Mediastinal contours appear normal. Heart size is enlarged. Bones and chest wall: No suspicious bony lesions. Overlying soft tissues appear unremarkable. IMPRESSION: Bibasilar opacities particularly in the bases appearing worse compared to prior exam. While this coul d represent edema, appearance is suggestive of underlying pneumonia and/or atelectasis. Reviewed by: Ellie Mosher MD on 08/14/2021 8:41 AM PDT Approved by: Ellie Mosher MD on 08/14/2021 8:41 AM PDT Station ID: [id number]
[2021-08-14] MEDS: VECURONIUM 100 MG in SODIUM CHLORIDE 0.9% 100ML 100 ML IV SCH ×2 (09:16→09:17)
[2021-08-14] MEDS: SENNA 8.6 MG TABLET PO SCH (09:25)
[2021-08-14] MEDS: DOCUSATE SODIUM 250 MG CAPSULE PO SCH (09:25)
[2021-08-14] MEDS: CHOLECALCIFEROL 5,000 UNIT CAPSULE PO SCH (09:25)
[2021-08-14] MEDS: polyethylene glycoL 3350 17 GM PACKET PO SCH (09:26)
[2021-08-14] MEDS: AZITHROMYCIN INJ 500 MG in SODIUM CHLORIDE 0.9% 250 ML IV SCH (09:28)
[2021-08-14] MEDS: cefTRIAXone 1 GM in SODIUM CHLORIDE 0.9% MINIBAG 100 ML IV SCH (09:31)
[2021-08-14] MEDS: CHLORHEXIDINE GLUCONATE 15 ML UDC PO SCH ×2 (09:33→23:54)
[2021-08-14] MEDS: DEXAMETHASONE 4 MG/ML VIAL IVP SCH (09:34)
[2021-08-14] MEDS: FUROSEMIDE 40 MG/4 ML VIAL IVP SCH (09:35)
[2021-08-14] MEDS: ENOXAPARIN 40 MG/0.4 ML SYRINGE SUBQ SCH (09:36)
[2021-08-14] MEDS: ASCORBIC ACID 500 MG TABLET PO SCH (09:46)
[2021-08-14 11:50] LABS: BASOPHILS # (AUTO) 0.1 10^3/uL (0.0-0.1); BASOPHILS % (AUTO) 0.6 %; EOSINOPHILS # (AUTO) 0.1 10^3/uL (0.0-0.7); EOSINOPHILS % (AUTO) 0.7 %; HCT - HEMATOCRIT 44.5 % (42.0-52.0); HGB - HEMOGLOBIN 14.2 g/dL (14.0-18.0); LYMPHOCYTES # (AUTO) 1.2 10^3/uL (1.5-3.5); LYMPHOCYTES % (AUTO) 8.1 %; MEAN CORPUSCULAR HEMOGLOBIN 28.2 pg (27.0-31.0); MEAN CORPUSCULAR HGB CONC 31.9 g/dL (32.0-36.0); MEAN CORPUSCULAR VOLUME 88.3 fL (80.0-94.0); MEAN PLATELET VOLUME 12.1 fL (7.4-11.4); MONOCYTES # (AUTO) 1.3 10^3/uL (0.0-1.0); MONOCYTES % (AUTO) 8.6 %; NEUTROPHILS # (AUTO) 11.1 10^3/uL (1.5-6.6); NEUTROPHILS % (AUTO) 72.6 %; PLT - PLATELET COUNT 238 10^3/uL (130-450); RED BLOOD COUNT 5.04 10^6/uL (4.70-6.10); RED CELL DISTRIBUTION WIDTH 15.6 % (12.0-15.0); WHITE BLOOD COUNT 15.3 x10^3/uL (4.8-10.8)
[2021-08-14 11:53] LABS: SLIDE REVIEW? Indicated
[2021-08-14 12:34] LABS: DIFFERENTIAL COMMENT MANUAL=AUTO DIFF; PLATELET ESTIMATE, MANUAL NORMAL (130-450,000) (NORMAL); PLATELET MORPHOLOGY NORMAL APPEARANCE (NORMAL); RBC MORPHOLOGY (MULTIPLE) 1+ ANISOCYTOSIS (NORMAL); WBC MORPHOLOGY (MULTIPLE) NORMAL APPEARANCE (NORMAL)
--- NOTE | 2021-08-14 16:53 | PROVIDER PROGRESS NOTE ---
Assessment/Plan - Problem List (1) Acute respiratory failure with hypoxia Assessment/Plan: He had had worsening resp status during this admission felt to be secondary to COVID-19 pneumonia. Patient is currently intubated and sedated, he was intubated on 08/12/21. Chest x-ray today showed worsening infiltarates. Central and arterial line in place and functioning well. Patient receiving tube feeding. Continue to monitor ABG and adjust vent settings accordingly. Sedation while intubated is with propofol iv drip. Patient required vecuronium drip for adequate ventilation. Getting Decadron 8/10, Rocephin 3/5, azithromycin 3/3 done and finished Remdesivir. Lasix 40 mg IV daily, stopping today 08/14/2021 (2) Pneumonia due to COVID-19 virus Assessment/Plan: Patient is currently intubated and sedated. Intubated on 08/12/21 We'll continue to monitor sats and then intermittent ABG and adjust vent settings accordingly. Sedation is with propofol. He is on Decadron 10, Rocephin 3/5, azithromycin 3/3 completed and he finished a 5 day couse of Remdesivir. Lasix 40 mg IV daily. To stop today 08/14/2021 We will start proning the patient, with the help of anesthesia and RT, beginning this evening/tonite. I updated the daughter and the by phone today (3) COVID toes Assessment/Plan: This was noted by RN and thus a D-dimer was obtained and has increased substantially since admission (273>> >1050 today). This is likely due to hypercoagulable status of Covid. Will start treatment with therapeutic Lovenox, not just prophylactic Lovenox, discussed with Pharmacy (Vu). Will increase dose from 40 sq bid >> 130 sq bi d. Watch for excessive bleeding. (4) Obstructive sleep apnea on CPAP Assessment/Plan: Now intubated as of 08/12/2021. (5) Acute kidney injury Assessment/Plan: Improved/Resolved. (6) Morbid obesity with BMI of 40.0-44.9, adult Assessment/Plan: As per Hx. When I was updating the daughter and by phone today, the daughter mentioned that he has not slept on his stomach for years because of his morbid obesity - Current Meds Current Meds: Current Medications Generic Name Dose Route Start Last Admin Trade Name Johnq PRN Reason Stop Dose Admin Ascorbic Acid 500 mg 08/07/21 11:00 08/14/21 09:46 Ascorbic Acid 500 Mg Tablet PO 500 mg DAILY SHAUN Administration Chlorhexidine Gluconate 15 ml 08/12/21 21:00 08/14/21 09:33 Chlorhexidine Gluconate 15 Ml Udc PO 15 ml BID SHAUN Administration Cholecalciferol 5,000 unit 08/07/21 11:00 08/14/21 09:25 Cholecalciferol 5,000 Unit Capsule PO 08/16/21 09:01 5,000 unit DAILY SHAUN Administration Dexamethasone 6 mg 08/07/21 09:00 08/14/21 09:34 Dexamethasone 4 Mg/Ml Vial IVP 08/15/21 09:01 6 mg DAILY SHAUN Administration Docusate Sodium 250 - 500 mg 08/08/21 09:00 08/14/21 09:25 Docusate Sodium 250 Mg Capsule PO 250 mg DAILY SHAUN Administration Guaifenesin 10 ml 08/06/21 18:26 08/11/21 08:18 Guaifenesin/Dextromethorphan 10 Ml Udc PO 10 ml Q6HR PRN Administration Cough Propofol 500 mg in 50 mls @ 7.95 mls/hr 08/12/21 11:00 08/14/21 15:28 Diprivan IV 30 mcg/kg/min .Q6H18M SHAUN 23.85 mls/hr Administration Protocol 10 MCG/KG/MIN Norepinephrine Bitartrate 8 mg 250 mls @ 15 mls/hr 08/12/21 11:00 08/14/21 09:17 / Dextrose IV Not Given .[id number] SHAUN Protocol 8 MCG/MIN Ceftriaxone Sodium 1 gm/ 100 mls @ 200 mls/hr 08/12/21 11:00 08/14/21 10:05 Sodium Chloride IV 08/16/21 09:29 Infused DAILY SHAUN Infusion Vecuronium [place] 100 mg/ 100 mls @ 7.95 mls/hr 08/12/21 12:00 08/14/21 15:22 Sodium Chloride IV 0.6 mcg/kg/min .[id number] SHAUN 4.77 mls/hr Titration Protocol 1 MCG/KG/MIN Lorazepam 0.5 mg 08/08/21 12:32 08/11/21 20:54 Lorazepam 0.5 Mg Tablet PO 0.5 mg Q6H PRN Administration Anxiety Morphine Sulfate 2 mg 08/08/21 20:29 08/12/21 10:00 Morphine 2 Mg/Ml Carpuject IVP 2 mg Q2HR PRN Administration Dyspnea Polyethylene Glycol 17 gm 08/08/21 09:00 08/14/21 09:26 Polyethylene Glycol 3350 17 Gm Packet PO 17 gm DAILY SHAUN Administration Senna 8.6 - 17.2 mg 08/08/21 09:00 08/14/21 09:25 Senna 8.6 Mg Tablet PO 8.6 mg DAILY SHAUN Administration Sodium Chloride 10 ml 08/06/21 13:14 08/13/21 06:29 Sodium Chloride Flush 0.9% 10 Ml Syringe IVP 10 ml PRN PRN Administration NEEDED PER PROVIDER ORDERS Sodium Chloride 10 ml 08/06/21 17:00 08/14/21 09:35 Sodium Chloride Flush 0.9% 10 Ml Syringe IVP 10 ml 0100,0900,1700 SHAUN Administration Sodium Chloride 10 ml 08/07/21 01:00 08/14/21 09:35 Sodium Chloride Flush 0.9% 10 Ml Syringe IVP 10 ml 0100,0900,1700 SHAUN Administration Sodium Chloride 10 ml 08/07/21 00:56 08/09/21 20:51 Sodium Chloride Flush 0.9% 10 Ml Syringe IVP 10 ml PRN PRN Administration NEEDED PER PROVIDER ORDERS Sodium Chloride 20 ml 08/12/21 23:12 08/13/21 06:29 Sodium Chloride Flush 0.9% 10 Ml Syringe IVP 20 ml PRN PRN Administration After Blood Draw - Lab Result Fish Bone Diagrams: 08/15/21 05:40 08/15/21 05:40 - Additional Planning My Orders: My Active Orders 08/14/21 10:33 Tube Feeding [RC] QSHIFT 08/14/21 16:33 Sodium Chloride 0.9% [Normal Saline 0.9%] 500 ml IV Q24H 08/14/21 16:38 Miscellaenous Nursing Order [RC] DAILY 08/14/21 21:00 Enoxaparin [Lovenox] 130 mg SUBQ BID 08/15/21 05:00 CBC - COMP BLD CT W/AUTO DIFF [HEME] DAILYLAB 08/16/21 05:00 CBC - COMP BLD CT W/AUTO DIFF [HEME] DAILYLAB 08/17/21 05:00 CBC - COMP BLD CT W/AUTO DIFF [HEME] DAILYLAB Subjective - Subjective Patient Reports: Other (Sedated on propofol, intubated and on the vent) Objective Vital Signs: Vital Signs - 24 hr 08/13/21 08/13/21 08/13/21 17:00 18:00 19:00 Temperature 37.5 C Heart Rate Heart Rate [ 67 64 62 Monitoring electrodes] Respiratory 23 23 23 Rate Blood Pressure [Left Brachial artery] Blood Pressure 159/90 H 135/87 H 142/82 H [Right Brachial artery] Blood Pressure 136/64 H 113/58 L 122/60 [Right Radial artery] O2 Saturation 95 96 96 08/13/21 08/13/21 08/13/21 19:45 20:00 21:00 Temperature Heart Rate 66 Heart Rate [ 63 59 L Monitoring electrodes] Respiratory 23 23 Rate Blood Pressure 149/88 H [Left Brachial artery] Blood Pressure 146/93 H [Right Brachial artery] Blood Pressure 114/60 121/61 [Right Radial artery] O2 Saturation 95 96 08/13/21 08/13/21 08/13/21 21:40 22:00 23:00 Temperature Heart Rate 59 L Heart Rate [ 56 L 58 L Monitoring electrodes] Respiratory 23 23 Rate Blood Pressure [Left Brachial artery] Blood Pressure 155/95 H 158/94 H [Right Brachial artery] Blood Pressure 123/61 120/60 [Right Radial artery] O2 Saturation 97 97 08/13/21 08/14/21 08/14/21 23:35 00:00 01:00 Temperature Heart Rate 55 L Heart Rate [ 58 L 65 Monitoring electrodes] Respiratory 23 23 Rate Blood Pressure 163/90 H 163/92 H [Left Brachial artery] Blood Pressure [Right Brachial artery] Blood Pressure 121/60 135/63 H [Right Radial artery] O2 Saturation 96 95 08/14/21 08/14/21 08/14/21 01:25 02:00 03:00 Temperature Heart Rate 71 Heart Rate [ 56 L 56 L Monitoring electrodes] Respiratory 23 23 Rate Blood Pressure 149/91 H 144/88 H [Left Brachial artery] Blood Pressure [Right Brachial artery] Blood Pressure 120/61 106/56 L [Right Radial artery] O2 Saturation 96 96 08/14/21 08/14/21 08/14/21 03:35 04:00 05:00 Temperature 36.7 C Heart Rate 56 L Heart Rate [ 57 L 56 L Monitoring electrodes] Respiratory 23 23 Rate Blood Pressure 142/82 H [Left Brachial artery] Blood Pressure [Right Brachial artery] Blood Pressure 109/58 L 130/64 [Right Radial artery] O2 Saturation 95 97 08/14/21 08/14/21 08/14/21 05:40 06:00 07:00 Temperature Heart Rate 57 L Heart Rate [ 59 L 59 L Monitoring electrodes] Respiratory 23 23 Rate Blood Pressure 147/84 H 134/85 H [Left Brachial artery] Blood Pressure [Right Brachial artery] Blood Pressure 121/59 L 103/56 L [Right Radial artery] O2 Saturation 96 95 08/14/21 08/14/21 08/14/21 07:40 08:00 09:00 Temperature 36.3 C L 36.1 C L Heart Rate 61 Heart Rate [ 60 61 Monitoring electrodes] Respiratory 23 23 Rate Blood Pressure 130/81 H 113/77 [Left Brachial artery] Blood Pressure [Right Brachial artery] Blood Pressure 98/54 L [Right Radial artery] O2 Saturation 95 93 08/14/21 08/14/21 08/14/21 10:00 11:00 11:35 Temperature 36.7 C Heart Rate Heart Rate [ 66 65 72 Monitoring electrodes] Respiratory 23 25 H 23 Rate Blood Pressure 149/73 H 141/79 H [Left Brachial artery] Blood Pressure [Right Brachial artery] Blood Pressure 125/56 L 137/67 H [Right Radial artery] O2 Saturation 95 97 95 08/14/21 08/14/21 08/14/21 11:45 12:00 13:00 Temperature 36.8 C Heart Rate 70 Heart Rate [ 73 73 Monitoring electrodes] Respiratory 23 23 Rate Blood Pressure 129/56 L 116/71 [Left Brachial artery] Blood Pressure [Right Brachial artery] Blood Pressure 145/59 H [Right Radial artery] O2 Saturation 94 95 08/14/21 08/14/21 08/14/21 13:35 14:12 15:00 Temperature 36.7 C Heart Rate Heart Rate [ 74 75 72 Monitoring electrodes] Respiratory 23 23 23 Rate Blood Pressure [Left Brachial artery] Blood Pressure [Right Brachial artery] Blood Pressure 116/71 131/72 H 134/58 H [Right Radial artery] O2 Saturation 95 96 95 08/14/21 16:00 Temperature Heart Rate Heart Rate [ 70 Monitoring electrodes] Respiratory 23 Rate Blood Pressure [Left Brachial artery] Blood Pressure [Right Brachial artery] Blood Pressure 113/65 [Right Radial artery] O2 Saturation 96 Oxygen O2 Source Mechanical ventilator Oxygen Flow Rate 15 I&O (Last 24 Hrs): Intake and Output Totals x24h 08/12/21 08/13/21 08/14/21 23:59 23:59 23:59 Intake Total 613.721 2055.735 2145.120 Output Total 1510 1945 1637 Balance -549.786 900.735 508.120 General: Other (Sedated, intubated on the ventilator) HEENT: Mucous membr. moist/pink Neck: No JVD Neuro: Other (Sedated) Cardiovascular: Regular rate Respiratory: Other (ET tube intubated) Abdomen: Soft Extremities: No edema, Other (Purple-black discoloration of 2nd and third toes of R foot, R heel is warm) - Results Results: Laboratory Results WBC 15.3 x10^3/uL (4.8-10.8) H 08/14/21 11:00 RBC 5.04 10^6/uL (4.70-6.10) 08/14/21 11:00 Hgb 14.2 g/dL (14.0-18.0) 08/14/21 11:00 Hct 44.5 % (42.0-52.0) 08/14/21 11:00 MCV 88.3 fL (80.0-94.0) 08/14/21 11:00 MCH 28.2 pg (27.0-31.0) 08/14/21 11:00 MCHC 31.9 g/dL (32.0-36.0) L 08/14/21 11:00 RDW 15.6 % (12.0-15.0) H 08/14/21 11:00 Plt Count 238 10^3/uL (130-450) 08/14/21 11:00 MPV 12.1 fL (7.4-11.4) H 08/14/21 11:00 Neut # (Auto) 11.1 10^3/uL (1.5-6.6) H 08/14/21 11:00 Lymph # (Auto) 1.2 10^3/uL (1.5-3.5) L 08/14/21 11:00 Graham # (Auto) 1.3 10^3/uL (0.0-1.0) H 08/14/21 11:00 Eos # (Auto) 0.1 10^3/uL (0.0-0.7) 08/14/21 11:00 Baso # (Auto) 0.1 10^3/uL (0.0-0.1) 08/14/21 11:00 Absolute Nucleated RBC 0.00 x10^3/uL 08/14/21 11:00 Total Counted 100 08/13/21 05:15 Band Neuts % (Manual) Not Reportable 08/14/21 11:00 Abnorm Lymph % (Manual) Not Reportable 08/14/21 11:00 Metamyelocytes % 1 % (-0) H 08/13/21 05:15 Myelocytes % 3 % (-0) H 08/13/21 05:15 Nucleated RBC % 0.0 /100WBC 08/14/21 11:00 Neutrophils # (Manual) Not Reportable 08/14/21 11:00 Lymphocytes # (Manual) Not Reportable 08/14/21 11:00 Monocytes # (Manual) Not Reportable 08/14/21 11:00 Eosinophils # (Manual) Not Reportable 08/14/21 11:00 Basophils # (Manual) Not Reportable 08/14/21 11:00 Differential Comment MANUAL=AUTO DIFF 08/14/21 11:00 Manual Slide Review Indicated 08/14/21 11:00 WBC Morphology NORMAL APPEARANCE (NORMAL) 08/14/21 11:00 Platelet Estimate NORMAL (130-450,000) (NORMAL) 08/14/21 11:00 Platelet Morphology NORMAL APPEARANCE (NORMAL) 08/14/21 11:00 RBC Morph Micro Appear 1+ ANISOCYTOSIS (NORMAL) 08/14/21 11:00 D-Dimer > 1050.0 ng/mL (200.0-255.0) H 08/14/21 11:00 Bld Gas Analysis Time 1334 08/13/21 13:23 Sample Site A-LINE 08/13/21 13:23 ABG pH 7.39 (7.35-7.45) 08/13/21 13:23 ABG pCO2 46 mmHg (34-45) H 08/13/21 13:23 ABG pO2 131 mmHg (80-100) H 08/13/21 13:23 ABG HCO3 27.4 mmol/L (22.0-26.0) H 08/13/21 13:23 ABG Total CO2 28.8 MMOL/L (21.0-29.0) 08/13/21 13:23 ABG O2 Saturation 99 % (94-98) H 08/13/21 13:23 ABG Base Excess 1.9 mmol/L (-2.0-3.0) 08/13/21 13:23 Benny Test NOT APPLICABLE 08/13/21 13:23 VBG pH 7.360 (7.31-7.41) 08/13/21 05:15 Ionized Calcium 1.15 mmol/L (1.15-1.33) 08/13/21 05:15 Respiration Rate 23 b/min 08/13/21 13:23 O2 Delivery Device VENTILATOR 08/13/21 13:23 O2 Liters/Min 55.00 LPM 08/11/21 09:40 Vent Mode ACVC 08/13/21 13:23 FiO2 90.00 08/13/21 13:23 Tidal Volume 450 mL 08/13/21 13:23 PEEP 15 cmH2O 08/13/21 13:23 EPAP 8 cmH2O 08/12/21 09:04 IPAP 10 cmH2O 08/12/21 09:04 Sodium 140 mmol/L (135-145) 08/14/21 05:00 Potassium 4.3 mmol/L (3.5-5.0) 08/14/21 05:00 Chloride 99 mmol/L (101-111) L 08/14/21 05:00 Carbon Dioxide 32 mmol/L (21-32) 08/14/21 05:00 Anion Gap 9.0 (6-13) 08/14/21 05:00 BUN 36 mg/dL (6-20) H 08/14/21 05:00 Creatinine 0.9 mg/dL (0.6-1.2) 08/14/21 05:00 Estimated GFR (MDRD) 84 (>89) L 08/14/21 05:00 Glucose 162 mg/dL (70-100) H 08/14/21 05:00 Calcium 8.6 mg/dL (8.5-10.3) 08/14/21 05:00 Phosphorus 2.9 mg/dL (2.5-4.6) 08/14/21 05:00 Magnesium 2.9 mg/dL (1.7-2.8) H 08/14/21 05:00 Total Bilirubin 0.9 mg/dL (0.2-1.0) 08/14/21 05:00 Direct Bilirubin 0.3 mg/dL (0.1-0.5) 08/14/21 05:00 AST 42 IU/L (10-42) 08/14/21 05:00 ALT 48 IU/L (10-60) 08/14/21 05:00 Alkaline Phosphatase 71 IU/L (42-121) 08/14/21 05:00 Troponin I High Sens 18.9 ng/L (2.3-19.7) 08/06/21 12:05 C-Reactive Protein 26.6 mg/dL (0-1.0) H 08/06/21 12:05 B-Natriuretic Peptide 51 pg/mL (5-100) 08/06/21 12:05 Total Protein 6.0 g/dL (6.7-8.2) L 08/14/21 05:00 Albumin 2.2 g/dL (3.2-5.5) L 08/14/21 05:00 Globulin 3.8 g/dL (2.1-4.2) 08/14/21 05:00 Albumin/Globulin Ratio 0.6 (1.0-2.2) L 08/13/21 05:15 Prealbumin 9 mg/dL (18-45) L 08/13/21 05:15 Triglycerides 198 mg/dL (-149) H 08/13/21 05:15 Lipase 35 U/L (22-51) 08/06/21 12:05 Urine Color DARK YELLOW 08/07/21 05:50 Urine Clarity CLEAR (CLEAR) 08/07/21 05:50 Urine pH 6.0 PH (5.0-7.5) 08/07/21 05:50 Ur Specific [place] 1.025 (1.002-1.030) 08/07/21 05:50 Urine Protein 100 mg/dL (NEGATIVE) H 08/07/21 05:50 Urine Glucose (UA) NEGATIVE mg/dL (NEGATIVE) 08/07/21 05:50 Urine Ketones 15 mg/dL (NEGATIVE) H 08/07/21 05:50 Urine Occult Blood SMALL (NEGATIVE) H 08/07/21 05:50 Urine Nitrite NEGATIVE (NEGATIVE) 08/07/21 05:50 Urine Bilirubin NEGATIVE (NEGATIVE) 08/07/21 05:50 Urine Urobilinogen 1 (NORMAL) E.U./dL (NORMAL) 08/07/21 05:50 Ur Leukocyte Esterase NEGATIVE (NEGATIVE) 08/07/21 05:50 Urine RBC 6-10 /HPF (0-5) H 08/07/21 05:50 Urine WBC 0-3 /HPF (0-3) 08/07/21 05:50 Ur Squamous Epith Cells RARE Squamous (<= Few) 08/07/21 05:50 Urine Bacteria Few /HPF (None Seen) 08/07/21 05:50 Urine Culture Comments NOT INDICATED 08/07/21 05:50 Nasal Screen MRSA (PCR) NEGATIVE (NEGATIVE) 08/07/21 01:46
[2021-08-14] MEDS: SODIUM CHLORIDE 0.9% 500 ML IV PRN (17:34)
[2021-08-14] MEDS: ENOXAPARIN 150 MG/ML SYRINGE SUBQ SCH (23:54)
[2021-08-15] MEDS: PROPOFOL 500 MG/50 ML 500 MG/50 ML VIAL IV SCH ×11 (00:40→22:38)
[2021-08-15] MEDS ORDERED: diltiaZEM INJ 5 MG/ML VIAL IVP ONE ×2 (05:15→06:16)
[2021-08-15 05:33] LABS: ABG HCO3 30.1 mmol/L (22.0-26.0); ABG OXYGEN SATURATION 97 % (94-98); ABG PCO2 55 mmHg (34-45); ABG PH 7.35 (7.35-7.45); ABG PO2 89 mmHg (80-100); ABG TCO2 31.8 MMOL/L (21.0-29.0)
--- NOTE | 2021-08-15 05:33 | PROVIDER PROGRESS NOTE ---
Subjective - Prog Note Date Prog Note Date: 08/15/21 Prog Note Time: 05:31 - Subjective Subjective: If patient was prone and had improvement in peak pressures with that. This was done yesterday morning. At around 2 AM this morning, RT noted that she was suctioning thicker secretions. By 4 AM he was triggering the vent because peak pressures had increased and end-tidal CO2 was rising. By 4:30 AM the secretions were even thicker and her concern is that he is getting tube feeds around his ET tube. Approximately 4:35 AM they called a code because he suddenly bradycardia down and was almost flat line with the vent not triggering. She had already trouble shooted by suctioning, repositioning tube, and nothing was working. Code was called. They flipped him back over on his back and immediately heart rate went back up again a now he is in atrial fibrillation. He has been on Lovenox DVT prophylaxis and was increased to therapeutic doses for last night's first dose. He is getting get another 130 mg this morning. Now that he is on his back, peak pressures have come back down again. Atrial fibrillation rate started at 180 and is now down into the 140s. Blood pressure is stable with this.I have ordered stat labs, chest x-ray. Diltiazem 10 mg IV push. Current Medications - Current Medications Current Medications: Active Medications Acetaminophen (Acetaminophen 325 Mg Tablet) 650 mg PO Q4HR PRN PRN Reason: Pain 1 to 4 Ascorbic Acid (Ascorbic Acid 500 Mg Tablet) 500 mg PO DAILY [facility] Last Admin: 08/14/21 09:46 Dose: 500 mg Documented by: Chlorhexidine Gluconate (Chlorhexidine Gluconate 15 Ml Udc) 15 ml PO BID [facility] Last Admin: 08/14/21 23:54 Dose: 15 ml Documented by: Cholecalciferol (Cholecalciferol 5,000 Unit Capsule) 5,000 unit PO DAILY [facility] Stop: 08/16/21 09:01 Last Admin: 08/14/21 09:25 Dose: 5,000 unit Documented by: Dexamethasone (Dexamethasone 4 Mg/Ml Vial) 6 mg IVP DAILY [facility] Stop: 08/15/21 09:01 Last Admin: 08/14/21 09:34 Dose: 6 mg Documented by: Diltiazem HCl (Diltiazem Inj 5 Mg/Ml Vial) 10 mg IVP ONCE ONE Stop: 08/15/21 05:16 Docusate Sodium (Docusate Sodium 250 Mg Capsule) 250 - 500 mg PO DAILY [facility] Last Admin: 08/14/21 09:25 Dose: 250 mg Documented by: Enoxaparin Sodium (Enoxaparin 150 Mg/Ml Syringe) 130 mg SUBQ BID [facility] Last Admin: 08/14/21 23:54 Dose: 130 mg Documented by: Guaifenesin (Guaifenesin/Dextromethorphan 10 Ml Udc) 10 ml PO Q6HR PRN PRN Reason: Cough Last Admin: 08/11/21 08:18 Dose: 10 ml Documented by: Propofol (Diprivan) 500 mg in 50 mls @ 7.95 mls/hr IV .Q6H18M [facility]; Protocol Last Admin: 08/15/21 02:47 Dose: 30 mcg/kg/min, 23.85 mls/hr Documented by: Norepinephrine Bitartrate 8 mg (/ Dextrose) 250 mls @ 15 mls/hr IV .[id number] [facility]; Protocol Last Admin: 08/14/21 09:17 Dose: Not Given Documented by: Ceftriaxone Sodium 1 gm/ (Sodium Chloride) 100 mls @ 200 mls/hr IV DAILY [facility] Stop: 08/16/21 09:29 Last Infusion: 08/14/21 10:05 Dose: Infused Documented by: Vecuronium [place] 100 mg/ (Sodium Chloride) 100 mls @ 7.95 mls/hr IV .[id number] [facility]; Protocol Last Titration: 08/15/21 04:35 Dose: 0.8 mcg/kg/min, 6.36 mls/hr Documented by: Sodium Chloride (Normal Saline 0.9%) 500 mls @ 20 mls/hr IV Q24H PRN PRN Reason: TKO RATE Last Admin: 08/14/21 17:34 Dose: 20 mls/hr Documented by: Lorazepam (Lorazepam 0.5 Mg Tablet) 0.5 mg PO Q6H PRN PRN Reason: Anxiety Last Admin: 08/11/21 20:54 Dose: 0.5 mg Documented by: Morphine Sulfate (Morphine 2 Mg/Ml Carpuject) 2 mg IVP Q2HR PRN PRN Reason: Dyspnea Last Admin: 08/12/21 10:00 Dose: 2 mg Documented by: Ondansetron HCl (Ondansetron 4 Mg/2 Ml Vial) 4 mg IVP Q6HR PRN PRN Reason: Nausea / Vomiting Polyethylene Glycol (Polyethylene Glycol 3350 17 Gm Packet) 17 gm PO DAILY [facility] Last Admin: 08/14/21 09:26 Dose: 17 gm Documented by: Senna (Senna 8.6 Mg Tablet) 8.6 - 17.2 mg PO DAILY [facility] Last Admin: 08/14/21 09:25 Dose: 8.6 mg Documented by: Sodium Chloride (Sodium Chloride Flush 0.9% 10 Ml Syringe) 10 ml IVP PRN PRN PRN Reason: NEEDED PER PROVIDER ORDERS Last Admin: 08/13/21 06:29 Dose: 10 ml Documented by: Sodium Chloride (Sodium Chloride Flush 0.9% 10 Ml Syringe) 10 ml IVP 0100,0900,1700 [facility] Last Admin: 08/14/21 17:48 Dose: Not Given Documented by: Sodium Chloride (Sodium Chloride Flush 0.9% 10 Ml Syringe) 10 ml IVP 0100,0900,1700 [facility] Last Admin: 08/14/21 17:49 Dose: Not Given Documented by: Sodium Chloride (Sodium Chloride Flush 0.9% 10 Ml Syringe) 10 ml IVP PRN PRN PRN Reason: NEEDED PER PROVIDER ORDERS Last Admin: 08/09/21 20:51 Dose: 10 ml Documented by: Sodium Chloride (Sodium Chloride Flush 0.9% 10 Ml Syringe) 20 ml IVP PRN PRN PRN Reason: After Blood Draw Last Admin: 08/13/21 06:29 Dose: 20 ml Documented by: Omeprazole [PriLOSEC] 20 mg PO DAILY 01/31/14 Objective - Vital Signs/Intake & Output Reviewed Vital Signs: Yes Vital Signs: Vital Signs x48h Temp Pulse Pulse Resp BP BP Pulse Ox 08/15/21 04:00 99 08/15/21 03:00 87 23 148/74 H 144/64 H 97 08/15/21 02:00 92 23 150/74 H 144/63 H 97 08/15/21 01:55 95 08/15/21 01:00 94 23 115/77 152/67 H 98 08/15/21 00:00 37.0 C 86 23 147/83 H 163/76 H 98 08/14/21 23:17 85 08/14/21 23:00 89 23 150/69 H 149/84 H 98 08/14/21 22:00 89 23 152/66 H 141/82 H 98 Intake & Output: Intake & Output 08/12/21 08/13/21 08/14/21 08/15/21 23:59 23:59 23:59 23:59 Intake Total 887.994 0711.735 2793.727 181.436 Output Total 1510 1945 2062 135 Balance -549.786 900.735 731.727 46.436 - Objective General Appearance: positive: Other (Intubated, on propofol, a morbidly obese male who is 134 kg.) Eyes Bilateral: positive: PERRL ENT: positive: Dry mucous membranes, Other (Tongue is swollen, almost protruding beyond his teeth. Still within the lips.) Neck: negative: Stiff neck Respiratory: positive: Rhonchi, Other (On assist control, FiO2 90%, tidal volume 450, PEEP of 15, he is breathing at 23. pH 7.35, PCO2 55, PO2 89. Base excess 3+.). negative: Wheezes, Rales Cardiovascular: positive: Irregularly irregular, Tachycardia Abdomen: positive: Other (Large obese pannus, hypoactive bowel sounds, no rigidity, and I am not really seeing distention) Skin: positive: Warm, Dry, Other (I am looking for body rashes considering his tongue is so swollen and there is none present) Extremities: positive: Pedal edema Neurologic/Psychiatric: positive: Other (Intubated/paralyzed/sedated) - Lab Results Fish Bones: 08/14/21 11:00 08/14/21 05:00 Other Labs: Lab Results x24hrs 08/14/21 08/14/21 08/14/21 Range/Units 11:00 11:00 05:00 WBC 15.3 H (4.8-10.8) x10^3/uL RBC 5.04 (4.70-6.10) 10^6/uL Hgb 14.2 (14.0-18.0) g/dL Hct 44.5 (42.0-52.0) % MCV 88.3 (80.0-94.0) fL MCH 28.2 (27.0-31.0) pg MCHC 31.9 L (32.0-36.0) g/dL RDW 15.6 H (12.0-15.0) % Plt Count 238 (130-450) 10^3/uL MPV 12.1 H (7.4-11.4) fL Neut # (Auto) 11.1 H (1.5-6.6) 10^3/uL Lymph # (Auto) 1.2 L (1.5-3.5) 10^3/uL [place] # (Auto) 1.3 H (0.0-1.0) 10^3/uL Eos # (Auto) 0.1 (0.0-0.7) 10^3/uL Baso # (Auto) 0.1 (0.0-0.1) 10^3/uL Absolute Nucleated RBC 0.00 x10^3/uL Band Neuts % (Manual) Not Reportable Abnorm Lymph % (Manual) Not Reportable Nucleated RBC % 0.0 /100WBC Neutrophils # (Manual) Not Reportable Lymphocytes # (Manual) Not Reportable Monocytes # (Manual) Not Reportable Eosinophils # (Manual) Not Reportable Basophils # (Manual) Not Reportable Differential Comment MANUAL=AUTO DIFF Manual Slide Review Indicated WBC Morphology NORMAL APPEARANCE (NORMAL) Platelet Estimate NORMAL (130-450,000) (NORMAL) Platelet Morphology NORMAL APPEARANCE (NORMAL) RBC Morph Micro Appear 1+ ANISOCYTOSIS (NORMAL) D-Dimer > 1050.0 H (200.0-255.0) ng/mL Sodium (135-145) mmol/L Potassium (3.5-5.0) mmol/L Chloride (101-111) mmol/L Carbon Dioxide (21-32) mmol/L Anion Gap (6-13) BUN (6-20) mg/dL Creatinine (0.6-1.2) mg/dL Estimated GFR (MDRD) (>89) Glucose (70-100) mg/dL Calcium (8.5-10.3) mg/dL Phosphorus 2.9 (2.5-4.6) mg/dL Magnesium 2.9 H (1.7-2.8) mg/dL Total Bilirubin (0.2-1.0) mg/dL Direct Bilirubin (0.1-0.5) mg/dL AST (10-42) IU/L ALT (10-60) IU/L Alkaline Phosphatase (42-121) IU/L Total Protein (6.7-8.2) g/dL Albumin (3.2-5.5) g/dL Globulin (2.1-4.2) g/dL 08/14/21 Range/Units 05:00 WBC (4.8-10.8) x10^3/uL RBC (4.70-6.10) 10^6/uL Hgb (14.0-18.0) g/dL Hct (42.0-52.0) % MCV (80.0-94.0) fL MCH (27.0-31.0) pg MCHC (32.0-36.0) g/dL RDW (12.0-15.0) % Plt Count (130-450) 10^3/uL MPV (7.4-11.4) fL Neut # (Auto) (1.5-6.6) 10^3/uL Lymph # (Auto) (1.5-3.5) 10^3/uL [place] # (Auto) (0.0-1.0) 10^3/uL Eos # (Auto) (0.0-0.7) 10^3/uL Baso # (Auto) (0.0-0.1) 10^3/uL Absolute Nucleated RBC x10^3/uL Band Neuts % (Manual) Abnorm Lymph % (Manual) Nucleated RBC % /100WBC Neutrophils # (Manual) Lymphocytes # (Manual) Monocytes # (Manual) Eosinophils # (Manual) Basophils # (Manual) Differential Comment Manual Slide Review WBC Morphology (NORMAL) Platelet Estimate (NORMAL) Platelet Morphology (NORMAL) RBC Morph Micro Appear (NORMAL) D-Dimer (200.0-255.0) ng/mL Sodium 140 (135-145) mmol/L Potassium 4.3 (3.5-5.0) mmol/L Chloride 99 L (101-111) mmol/L Carbon Dioxide 32 (21-32) mmol/L Anion Gap 9.0 (6-13) BUN 36 H (6-20) mg/dL Creatinine 0.9 (0.6-1.2) mg/dL Estimated GFR (MDRD) 84 L (>89) Glucose 162 H (70-100) mg/dL Calcium 8.6 (8.5-10.3) mg/dL Phosphorus (2.5-4.6) mg/dL Magnesium (1.7-2.8) mg/dL Total Bilirubin 0.9 (0.2-1.0) mg/dL Direct Bilirubin 0.3 (0.1-0.5) mg/dL AST 42 (10-42) IU/L ALT 48 (10-60) IU/L Alkaline Phosphatase 71 (42-121) IU/L Total Protein 6.0 L (6.7-8.2) g/dL Albumin 2.2 L (3.2-5.5) g/dL Globulin 3.8 (2.1-4.2) g/dL ABX Reporting Has patient been on IV antibiotics over the past 48 hours?: Yes Assessment/Plan - Problem List (1) Bradycardia Impression: In the context of possible tube feeding secretions, rising PCO2 on end-tidal volume measurement, and sudden rise in peak pressures. Followed by atrial fibrillation. Rapid response/code called. Differential in this gentleman who is with Covid toes, Covid pneumonia, intubated, would be PE. His BMP and liver enzymes are quite good. White cell count continues to be elevated at 15,000 but unchanged for 72 hours. Plan: 1 hour spent at bedside with direct clinical care. Obtain chest x-ray for now. Stop tube feedings for now. Once we are sure he is stabilized, and there are more staff available in daylight hours, get CT pulmonary angiogram (2) Atrial fibrillation with rapid ventricular response Impression: Check troponin, chest x-ray, and CT pulmonary angiogram as above. Diltiazem 10 mg IV push. (3) COVID toes Impression: This was noted by RN 08/14 and thus a D-dimer was obtained and has increased substantially since admission (273>> >1050). This is likely due to hypercoagulable status of Covid. Started treatment with therapeutic Lovenox not just prophylactic Lovenox, discussed with Pharmacy ([facility]), dose went from 40 sq bid >> 130 sq bid. Watch for excessive bleeding. (4) Pneumonia due to COVID-19 virus Impression: This in turn discussed severe enough hypoxia that he has acute respiratory failure, resulting in intubation. He received 1 dose of Decadron in the emergency room on admission, he was then started on Decadron August 07 and today will be day #10. He has completed azithromycin, is continued on cef triaxone since the . 5 days of remdesivir completed August 10.
[2021-08-15 05:34] LABS: ABG MODE OF VENTILATION ASSIST/CONTROL; ABG RESPIRATORY RATE 23 b/min
[2021-08-15] MEDS: VECURONIUM 100 MG in SODIUM CHLORIDE 0.9% 100ML 100 ML IV SCH (05:40)
[2021-08-15 05:49] LABS: BASOPHILS % (AUTO) 0.5 %; EOSINOPHILS % (AUTO) 0.5 %; HCT - HEMATOCRIT 48.1 % (42.0-52.0); HGB - HEMOGLOBIN 15.3 g/dL (14.0-18.0); LYMPHOCYTES % (AUTO) 6.2 %; MEAN CORPUSCULAR HEMOGLOBIN 28.2 pg (27.0-31.0); MEAN CORPUSCULAR HGB CONC 31.8 g/dL (32.0-36.0); MEAN CORPUSCULAR VOLUME 88.6 fL (80.0-94.0); MONOCYTES % (AUTO) 8.9 %; PLT - PLATELET COUNT 294 10^3/uL (130-450); RED BLOOD COUNT 5.43 10^6/uL (4.70-6.10); RED CELL DISTRIBUTION WIDTH 15.6 % (12.0-15.0); WHITE BLOOD COUNT 18.3 x10^3/uL (4.8-10.8)
[2021-08-15 05:51] LABS: ABNORMAL LYMPHS % (MANUAL) 0 %; BAND NEUTROPHILS % (MANUAL) 0 %
[2021-08-15 06:03] LABS: ALBUMIN 2.5 g/dL (3.2-5.5); ALBUMIN/GLOBULIN RATIO 0.6 (1.0-2.2); BILIRUBIN,TOTAL 0.8 mg/dL (0.2-1.0); CALCIUM 8.8 mg/dL (8.5-10.3); CREATININE 0.7 mg/dL (0.6-1.2); MAGNESIUM 2.5 mg/dL (1.7-2.8); PHOSPHORUS 5.1 mg/dL (2.5-4.6); POTASSIUM 4.4 mmol/L (3.5-5.0); TOTAL PROTEIN 6.6 g/dL (6.7-8.2)
[2021-08-15 06:10] LABS: EOSINOPHILS # (MANUAL) 0.4 10^3/uL (0-0.7); LYMPHOCYTES # (MANUAL) 2.2 10^3/uL (1.5-3.5); LYMPHOCYTES % (MANUAL) 12 %; MONOCYTES # (MANUAL) 1.5 10^3/uL (0.0-1.0); NEUTROPHILS # (MANUAL) 14.3 10^3/uL (1.5-6.6); PLATELET MORPHOLOGY NORMAL APPEARANCE (NORMAL); RBC MORPHOLOGY (MULTIPLE) NORMAL APPEARANCE (NORMAL)
[2021-08-15] MEDS: SODIUM CHLORIDE FLUSH 0.9% 10 ML SYRINGE IVP SCH ×6 (06:10→17:34)
[2021-08-15 06:11] LABS: DIFFERENTIAL COMMENT MANUAL DIFFERENTIAL; PLATELET ESTIMATE, MANUAL NORMAL (130-450,000) (NORMAL); WBC MORPHOLOGY (MULTIPLE) NORMAL APPEARANCE (NORMAL)
[2021-08-15] MEDS ORDERED: PROCAINAMIDE 100 MG/1 ML 10 ML MDV IV ONE (06:17)
[2021-08-15] MEDS ORDERED: PROCAINAMIDE 1,000 MG in SODIUM CHLORIDE 0.9% 240 ML IV ONE ×2 (07:00→09:00)
--- NOTE | 2021-08-15 08:59 | XRAY Report ---
PROCEDURE: Chest 1 View X-Ray INDICATIONS: s/p code TECHNIQUE: One view of the chest was acquired. COMPARISON: 08/14/2021 FINDINGS: Surgical changes and devices: Endotracheal tube and right internal jugular central venous catheter gr ossly unchanged. The endotracheal tube tip is approximately 6.5 cm from the murphy. The tip of the ce ntral venous catheter is noted over the expected location of the superior vena cava. Enteric tube is noted with the tip overlying the left upper quadrant over the expected location of the stomach. The s leo port appears at the level of the gastroesophageal junction. Overlying EKG wires and cardiac pads. . Lungs and pleura: Interstitial and alveolar opacities most prominent at the lung bases, right greater than left are again identified. Questionable small pleural effusions. No pneumothorax. Mediastinum: Mediastinal contours appear normal. Heart size is normal. Bones and chest wall: No suspicious bony lesions. No displaced rib fractures. Overlying soft tissues appear unremarkable. IMPRESSION: Essentially stable interstitial and alveolar opacities worse at the lung bases. No pneumothorax. Stable appearance of the surgical devices with endotracheal tube approximately 6.5 cm from the murphy . Right internal jugular central venous catheter with tip overlying the expected location of the supe rior vena cava. The enteric tube is noted with tip overlying the expected location of the stomach and side-port at the level of the gastroesophageal junction. Agree with preliminary report. Reviewed by: Morteza Choi DO on 08/15/2021 7:58 AM GENET Approved by: Morteza Choi DO on 08/15/2021 7:58 AM GENET Station ID: [id number]
[2021-08-15] MEDS: CHLORHEXIDINE GLUCONATE 15 ML UDC PO SCH ×2 (09:04→22:06)
[2021-08-15] MEDS ORDERED: IOVERSOL 320 100 ML VIAL IVP ONE ×2 (09:42→11:04)
[2021-08-15] MEDS: cefTRIAXone 1 GM in SODIUM CHLORIDE 0.9% MINIBAG 100 ML IV SCH (10:52)
[2021-08-15] MEDS: ENOXAPARIN 150 MG/ML SYRINGE SUBQ SCH ×2 (10:59→22:06)
[2021-08-15] MEDS: polyethylene glycoL 3350 17 GM PACKET PO SCH (11:04)
[2021-08-15] MEDS: SENNA 8.6 MG TABLET PO SCH (11:04)
[2021-08-15] MEDS: DOCUSATE SODIUM 250 MG CAPSULE PO SCH (11:04)
[2021-08-15] MEDS: CHOLECALCIFEROL 5,000 UNIT CAPSULE PO SCH (11:04)
[2021-08-15] MEDS: ASCORBIC ACID 500 MG TABLET PO SCH (11:04)
[2021-08-15] MEDS: DEXAMETHASONE 4 MG/ML VIAL IVP SCH (11:06)
--- NOTE | 2021-08-15 13:02 | CT Report ---
PROCEDURE: ANGIO CHEST W/WO INDICATIONS: Intubated, aspirated, poss PE CONTRAST: IV CONTRAST: Optiray 320 ml: 100 PO CONTRAST: *NO PO CONTRAST TECHNIQUE: After the administration of intravenous contrast, 2 mm axial images were acquired from the pulmonary apices to the posterior costophrenic angles during the arterial phase. In addition, 1 mm lung kernel and 5 mm soft tissue kernel reconstructions were performed. 3-dimensional coronal oblique maximum int ensity projection (MIP) reformats, 8 mm axial MIP, and 5 mm coronal and sagittal MPR reformats were t hen performed through the thorax. For radiation dose reduction, the following was used: automated exp osure control, adjustment of mA and/or kV according to patient size. COMPARISON: Chest radiographs dating between 08/06/2022 and same day. FINDINGS: Image quality: Motion artifact somewhat limits evaluation. Enteric tube is noted extending into the stomach. The right internal jugular central venous catheter is noted within the superior vena cava. Endotracheal tube is noted approximately 7 cm from murphy. Pulmonary arteries: Pulmonary arteries are normal in size. There is filling defects noted within the right middle lobe segmental extending into the subsegmental vessels. There is also loss of contrast within the subsegmental lingular arteries. Lungs and pleura: There is diffuse interstitial and groundglass opacities noted throughout the lungs. More focal consolidations are noted within the lower lobes, right greater than left within the poste rior aspects. Mediastinum: Heart size is normal, without pericardial effusion. No evidence of right heart strain. No mediastinal or hilar adenopathy. Thoracic aorta is normal in caliber and enhancement. Esophagus is normal in caliber, without hiatal hernia. Bones and chest wall: No suspicious bony lesions. Ribs and thoracic spine appear intact throughout. No axillary or supraclavicular adenopathy. The thyroid is normal in size and there are no incident al findings. Abdomen: Visualized upper abdominal solid organs appear normal in the early arterial phase of enhanc ement. IMPRESSION: Small volume pulmonary embolus noted within a segmental and subsegmental vessels of the right middle lobe as well as the subsegmental vessels of the lingula. No evidence of right heart strain. Diffuse interstitial and groundglass opacities consistent with known Covid pneumonia. Focal consolida tions within the posterior aspects of the lower lobes may represent sequela of aspiration versus supe rimposed infection. Small pleural effusions. Findings discussed with the inpatient provider Dr. Diaz by Dr. Morteza Choi over the telephone at approximately 1150 hours [place] standard time on 08/15/2021. Reviewed by: Mortzea Choi DO on 08/15/2021 12:01 PM [facility]ET Approved by: Morteza Choi DO on 08/15/2021 12:01 PM GENET Station ID: [id number]
[2021-08-15] MEDS: CEFEPIME 2 GM in SODIUM CHLORIDE 0.9% MINIBAG 100 ML IV SCH ×2 (13:55→22:10)
[2021-08-15] MEDS ORDERED: VANCOMYCIN INJ 3 GM in SODIUM CHLORIDE 0.9% 500 ML IV ONE (14:00)
[2021-08-15] MEDS: SODIUM CHLORIDE 0.9% 500 ML IV PRN (17:35)
[2021-08-16] MEDS: VECURONIUM 100 MG in SODIUM CHLORIDE 0.9% 100ML 100 ML IV SCH ×4 (00:30→21:29)
[2021-08-16] MEDS: PROPOFOL 500 MG/50 ML 500 MG/50 ML VIAL IV SCH ×9 (00:41→22:50)
[2021-08-16] MEDS: VANCOMYCIN INJ 1.75 GM in SODIUM CHLORIDE 0.9% 500 ML IV SCH ×2 (02:01→13:29)
[2021-08-16] MEDS: SODIUM CHLORIDE FLUSH 0.9% 10 ML SYRINGE IVP SCH ×4 (02:07→18:21)
[2021-08-16] MEDS: CEFEPIME 2 GM in SODIUM CHLORIDE 0.9% MINIBAG 100 ML IV SCH ×3 (05:20→21:28)
[2021-08-16 05:33] LABS: BASOPHILS % (AUTO) 0.7 %; EOSINOPHILS % (AUTO) 0.6 %; HCT - HEMATOCRIT 46.2 % (42.0-52.0); HGB - HEMOGLOBIN 14.8 g/dL (14.0-18.0); LYMPHOCYTES % (AUTO) 6.8 %; MEAN CORPUSCULAR HEMOGLOBIN 28.4 pg (27.0-31.0); MEAN CORPUSCULAR VOLUME 88.5 fL (80.0-94.0); MEAN PLATELET VOLUME 12.2 fL (7.4-11.4); MONOCYTES % (AUTO) 10.2 %; NEUTROPHILS % (AUTO) 71.1 %; PLT - PLATELET COUNT 288 10^3/uL (130-450); RED BLOOD COUNT 5.22 10^6/uL (4.70-6.10); RED CELL DISTRIBUTION WIDTH 15.7 % (12.0-15.0); WHITE BLOOD COUNT 22.8 x10^3/uL (4.8-10.8)
[2021-08-16 05:35] LABS: ABNORMAL LYMPHS % (MANUAL) 0 %
[2021-08-16 05:59] LABS: BAND NEUTROPHILS % (MANUAL) 5 %; LYMPHOCYTES # (MANUAL) 3.2 10^3/uL (1.5-3.5); LYMPHOCYTES % (MANUAL) 14 %; MONOCYTES # (MANUAL) 2.1 10^3/uL (0.0-1.0); NEUTROPHILS # (MANUAL) 17.6 10^3/uL (1.5-6.6); PLATELET ESTIMATE, MANUAL NORMAL (130-450,000) (NORMAL); PLATELET MORPHOLOGY NORMAL APPEARANCE (NORMAL); RBC MORPHOLOGY (MULTIPLE) NORMAL APPEARANCE (NORMAL); WBC MORPHOLOGY (MULTIPLE) NORMAL APPEARANCE (NORMAL)
[2021-08-16 06:00] LABS: DIFFERENTIAL COMMENT MANUAL DIFFERENTIAL
[2021-08-16 06:14] LABS: ABG BASE EXCESS 0.8 mmol/L (-2.0-3.0); ABG HCO3 26.4 mmol/L (22.0-26.0); ABG PCO2 46 mmHg (34-45); ABG PH 7.38 (7.35-7.45); ABG PO2 136 mmHg (80-100); ABG TCO2 27.8 MMOL/L (21.0-29.0)
[2021-08-16 06:15] LABS: ABG MODE OF VENTILATION ASSIST/CONTROL; ABG OXYGEN SATURATION 99 % (94-98); ABG RESPIRATORY RATE 23 b/min
[2021-08-16] MEDS: ENOXAPARIN 150 MG/ML SYRINGE SUBQ SCH ×2 (09:28→21:34)
[2021-08-16] MEDS: CHLORHEXIDINE GLUCONATE 15 ML UDC PO SCH ×2 (09:41→21:31)
[2021-08-16] MEDS: metroNIDAZOLE 500 MG/100 ML 500 MG/100 ML BAG IV SCH ×2 (12:13→20:18)
[2021-08-16 12:20] LABS: BASOPHILS % (AUTO) 0.7 %; EOSINOPHILS % (AUTO) 0.8 %; HCT - HEMATOCRIT 46.5 % (42.0-52.0); HGB - HEMOGLOBIN 14.6 g/dL (14.0-18.0); LYMPHOCYTES % (AUTO) 6.5 %; MEAN CORPUSCULAR HEMOGLOBIN 27.9 pg (27.0-31.0); MEAN CORPUSCULAR HGB CONC 31.4 g/dL (32.0-36.0); MEAN CORPUSCULAR VOLUME 88.7 fL (80.0-94.0); MEAN PLATELET VOLUME 12.5 fL (7.4-11.4); NEUTROPHILS % (AUTO) 71.1 %; PLT - PLATELET COUNT 281 10^3/uL (130-450); RED BLOOD COUNT 5.24 10^6/uL (4.70-6.10); RED CELL DISTRIBUTION WIDTH 15.8 % (12.0-15.0); WHITE BLOOD COUNT 22.5 x10^3/uL (4.8-10.8)
[2021-08-16 12:22] LABS: SLIDE REVIEW? Indicated
[2021-08-16 12:40] LABS: ABNORMAL LYMPHS % (MANUAL) 0 %; BAND NEUTROPHILS % (MANUAL) 3 %; DIFFERENTIAL COMMENT MANUAL DIFFERENTIAL; EOSINOPHILS # (MANUAL) 0.5 10^3/uL (0-0.7); LYMPHOCYTES % (MANUAL) 4 %; METAMYELOCYTES % (MANUAL) 3 %; NEUTROPHILS # (MANUAL) 17.3 10^3/uL (1.5-6.6); PLATELET ESTIMATE, MANUAL NORMAL (130-450,000) (NORMAL); PLATELET MORPHOLOGY NORMAL APPEARANCE (NORMAL); RBC MORPHOLOGY (MULTIPLE) NORMAL APPEARANCE (NORMAL); REACTIVE LYMPHS % (MANUAL) 5 %
[2021-08-16 12:52] LABS: CALCIUM 8.3 mg/dL (8.5-10.3); CREATININE 0.7 mg/dL (0.6-1.2); PHOSPHORUS 3.2 mg/dL (2.5-4.6); POTASSIUM 4.2 mmol/L (3.5-5.0)
[2021-08-16] MEDS ORDERED: SODIUM CHLORIDE 0.9% 100ML 100 ML IV ONE (15:43)
--- NOTE | 2021-08-16 16:42 | PROVIDER PROGRESS NOTE ---
Assessment/Plan - Problem List (1) Acute respiratory failure with hypoxia Assessment/Plan: He had had worsening resp status during this admission felt to be secondary to COVID-19 pneumonia. Patient is currently intubated and sedated, he was intubated on 08/12/21. The last Chest x-ray today showed worsening infiltarates. Central and arterial line in place and functioning well. Tube feeding are off since yesterday, due to aspration (stomach contents were aspirated in pharynx). Continue to monitor ABG and adjust vent settings accordingly. Sedation while intubated is with propofol iv drip. Patient required vecuronium drip for adequate ventilation. Getting Decadron , azithromycin done and finished Remdesivir. Lasix 40 mg IV daily was stopped Antibx were broadened yesterday when aspiration PNA was suspected. (2) Pneumonia due to COVID-19 virus Assessment/Plan: Patient is currently intubated and sedated. Intubated on 08/12/21 Continue to monitor sats and then intermittent ABG and adjust vent settings accordingly. Sedation is with propofol. He is on Decadron, , azithromycin 3/3 completed and he finished a 5 day couse of Remdesivir. Now on Cefepime and Vanco for PNA. Will add Flagyl iv for anaerobe coverage, due to suspected aspiration, and consolidation was seen on CT chest done yesterday. We started nightly proning of the patient every evening I updated the daughter at bedside today (3) Pulmonary embolism Assessment/Plan: His airway pressures went up yesterday and CTA done yesterday showed R sided pulm emboli. (Radiologist told me he has seen alot of PEs in COVID pts). He was already put on therapeutic Lovenox the evening before, for COVID toes. Will continue this treatment with Lovenox. (4) Aspiration pneumonia Assessment/Plan: Tube feeding are off since yesterday, due to aspiration (stomach contents were aspirated in pharynx). Pt started on Cefepime and Vanco for PNA. Will add Flagyl iv for anaerobe coverage, due to suspected aspiration, and consolidation was seen on CT chest done yesterday. (5) Obstructive sleep apnea on CPAP Assessment/Plan: Now intubated as of 08/12/2021. (6) Morbid obesity with BMI of 40.0-44.9, adult Assessment/Plan: As per Hx. When I was updating the daughter and by phone today, the daughter mentioned that he has not slept on his stomach for years because of his morbid obesity (7) COVID toes Assessment/Plan: Resolved. This was noted by RN and thus a D-dimer was obtained and has increased s ubstantially since admission (273>> >1050 ). These toes changes were likely due to hypercoagulable status of Covid. We started treatment with therapeutic Lovenox, not just prophylactic Lovenox; increased dose from 40 sq bid >> 130 sq bid. Watch for excessive bleeding. (8) Hx of traumatic brain injury Assessment/Plan: The daughter is at bedside today (allowed in because of his critical status) and reported that the patient is on disability from TBI and his baseline function is transferring from bed to wheelchair, he no longer walks. (9) Acute kidney injury Assessment/Plan: Resolved - Current Meds Current Meds: Current Medications Generic Name Dose Route Start Last Admin Trade Name Freq PRN Reason Stop Dose Admin Chlorhexidine Gluconate 15 ml 08/12/21 21:00 08/16/21 09:41 Chlorhexidine Gluconate 15 Ml Udc PO 15 ml BID SHAUN Administration Enoxaparin Sodium 130 mg 08/14/21 21:00 08/16/21 09:28 Enoxaparin 150 Mg/Ml Syringe SUBQ 130 mg BID SHAUN Administration Propofol 500 mg in 50 mls @ 7.95 mls/hr 08/12/21 11:00 08/16/21 16:04 Diprivan IV 30 mcg/kg/min .[id number] SHAUN 23.85 mls/hr Administration Protocol 10 MCG/KG/MIN Vecuronium Mobile 100 mg/ 100 mls @ 7.95 mls/hr 08/12/21 12:00 08/16/21 16:04 Sodium Chloride IV 0.8 mcg/kg/min .[id number] SHAUN 6.36 mls/hr Administration Protocol 1 MCG/KG/MIN Sodium Chloride 500 mls @ 20 mls/hr 08/14/21 16:33 08/15/21 17:35 Normal Saline 0.9% IV 20 mls/hr Q24H PRN Administration TKO RATE Cefepime HCl 2 gm/ Sodium 100 mls @ 200 mls/hr 08/15/21 13:00 08/16/21 14:01 Chloride IV Infused Q8H SHAUN Infusion Vancomycin HCl 1.75 gm/ Sodium 500 mls @ 250 mls/hr 08/16/21 02:00 08/16/21 13:29 Chloride IV 250 mls/hr Q12H SHAUN Administration Metronidazole 500 mg in 100 mls @ 100 mls/hr 08/16/21 11:00 08/16/21 13:15 Flagyl 500 Mg/100 Ml IV Infused Q8H SHAUN Infusion Sodium Chloride 10 ml 08/06/21 13:14 08/13/21 06:29 Sodium Chloride Flush 0.9% 10 Ml Syringe IVP 10 ml PRN PRN Administration NEEDED PER PROVIDER ORDERS Sodium Chloride 10 ml 08/07/21 01:00 08/16/21 12:12 Sodium Chloride Flush 0.9% 10 Ml Syringe IVP 10 ml 0100,0900,1700 SHAUN Administration - Lab Result Fish Bone Diagrams: 08/17/21 05:45 08/17/21 05:45 - Additional Planning My Orders: My Active Orders 08/16/21 02:00 Vancomycin Inj [Vancomycin] 1.75 gm Sodium Chloride 0.9% [Normal Saline 0.9%] 500 ml IV Q12H 08/16/21 10:54 Miscellaenous Nursing Order [RC] QSHIFT 08/16/21 11:00 metroNIDAZOLE 500 MG/100 ML [Flagyl 500 mg/100 ml] 500 mg in 100 ml IV Q8H 08/17/21 05:00 BMP - BASIC METABOLIC PANEL [CHEM] DAILYLAB CBC - COMP BLD CT W/AUTO DIFF [HEME] DAILYLAB 08/17/21 13:00 VANCOMYCIN TROUGH [CHEM] Timed 08/18/21 05:00 BMP - BASIC METABOLIC PANEL [CHEM] DAILYLAB 08/19/21 05:00 BMP - BASIC METABOLIC PANEL [CHEM] DAILYLAB 08/20/21 05:00 BMP - BASIC METABOLIC PANEL [CHEM] DAILYLAB Subjective - Subjective Patient Reports: Other (sedated and intubated) Nursing Reports: Other ( was at bedside, daughter currently at bedside) Objective Vital Signs: Vital Signs - 24 hr 08/15/21 08/15/21 08/15/21 17:00 17:29 18:00 Temperature Heart Rate 78 Heart Rate [ 73 67 Monitoring electrodes] Respiratory 22 23 Rate Blood Pressure 158/81 H [Left Brachial artery] Blood Pressure 136/63 H 133/60 H [Right Radial artery] O2 Saturation 95 93 08/15/21 08/15/21 08/15/21 19:15 19:57 20:00 Temperature 37.0 C Heart Rate 78 Heart Rate [ 73 82 Monitoring electrodes] Respiratory 23 23 Rate Blood Pressure 135/77 H 163/90 H [Left Brachial artery] Blood Pressure 139/67 H 153/72 H [Right Radial artery] O2 Saturation 95 95 08/15/21 08/15/21 08/15/21 21:00 22:00 23:00 Temperature Heart Rate Heart Rate [ 78 78 79 Monitoring electrodes] Respiratory 23 23 23 Rate Blood Pressure 172/92 H 173/88 H 172/88 H [Left Brachial artery] Blood Pressure 167/80 H 163/78 H [Right Radial artery] O2 Saturation 95 95 95 08/16/21 08/16/21 08/16/21 00:00 00:05 01:00 Temperature Heart Rate 82 Heart Rate [ 79 81 Monitoring electrodes] Respiratory 23 23 Rate Blood Pressure 171/90 H 176/93 H [Left Brachial artery] Blood Pressure 170/80 H 173/82 H [Right Radial artery] O2 Saturation 95 95 08/16/21 08/16/21 08/16/21 02:00 02:43 03:00 Temperature Heart Rate 85 Heart Rate [ 81 85 Monitoring electrodes] Respiratory 23 23 Rate Blood Pressure 156/81 H 178/83 H [Left Brachial artery] Blood Pressure 171/80 H 179/90 H [Right Radial artery] O2 Saturation 95 96 08/16/21 08/16/21 08/16/21 04:00 05:00 06:00 Temperature Heart Rate Heart Rate [ 82 84 91 Monitoring electrodes] Respiratory 23 23 23 Rate Blood Pressure 173/89 H 189/90 H 191/90 H [Left Brachial artery] Blood Pressure 164/79 H 179/83 H 183/85 H [Right Radial artery] O2 Saturation 95 95 97 08/16/21 08/16/21 08/16/21 06:24 07:00 07:45 Temperature Heart Rate 82 82 Heart Rate [ 83 Monitoring electrodes] Respiratory 23 Rate Blood Pressure 183/86 H [Left Brachial artery] Blood Pressure 170/80 H [Right Radial artery] O2 Saturation 95 08/16/21 08/16/21 08/16/21 08:00 09:45 10:00 Temperature Heart Rate 91 Heart Rate [ 74 101 H Monitoring electrodes] Respiratory 23 23 Rate Blood Pressure [Left Brachial artery] Blood Pressure 149/79 H 170/83 H [Right Radial artery] O2 Saturation 96 100 08/16/21 08/16/21 08/16/21 11:00 11:35 11:49 Temperature 36.9 C Heart Rate 89 Heart Rate [ 97 102 H Monitoring electrodes] Respiratory 23 23 Rate Blood Pressure [Left Brachial artery] Blood Pressure 168/82 H 180/84 H [Right Radial artery] O2 Saturation 94 08/16/21 08/16/21 08/16/21 13:00 13:35 14:00 Temperature Heart Rate 91 Heart Rate [ 76 79 Monitoring electrodes] Respiratory 23 23 Rate Blood Pressure 155/89 H 149/86 H [Left Brachial artery] Blood Pressure 146/72 H 155/74 H [Right Radial artery] O2 Saturation 96 08/16/21 08/16/21 15:00 15:15 Temperature Heart Rate 89 Heart Rate [ 90 Monitoring electrodes] Respiratory 23 Rate Blood Pressure 165/90 H [Left Brachial artery] Blood Pressure 168/78 H [Right Radial artery] O2 Saturation Oxygen O2 Source Mechanical ventilator Oxygen Flow Rate 15 I&O (Last 24 Hrs): Intake and Output Totals x24h 08/14/21 08/15/21 08/16/21 23:59 23:59 23:59 Intake Total 2793.727 2210.848 1269.680 Output Total 2062 1184 1070 Balance 285.786 1699.848 199.680 General: Other (sedated and intubated on the vent) HEENT: Mucous membr. moist/pink Neck: Other (Obese) Neuro: Other (sedated) Cardiovascular: Regular rate Respiratory: Breath sounds nml (anteriorly, is on the vent) Abdomen: Other (obese with pannus) Extremities: No edema - Results Results: Laboratory Results WBC 22.5 x10^3/uL (4.8-10.8) H 08/16/21 11:40 RBC 5.24 10^6/uL (4.70-6.10) 08/16/21 11:40 Hgb 14.6 g/dL (14.0-18.0) 08/16/21 11:40 Hct 46.5 % (42.0-52.0) 08/16/21 11:40 MCV 88.7 fL (80.0-94.0) 08/16/21 11:40 MCH 27.9 pg (27.0-31.0) 08/16/21 11:40 MCHC 31.4 g/dL (32.0-36.0) L 08/16/21 11:40 RDW 15.8 % (12.0-15.0) H 08/16/21 11:40 Plt Count 281 10^3/uL (130-450) 08/16/21 11:40 MPV 12.5 fL (7.4-11.4) H 08/16/21 11:40 Neut # (Auto) Not Reportable 08/16/21 11:40 Lymph # (Auto) Not Reportable 08/16/21 11:40 [place] # (Auto) Not Reportable 08/16/21 11:40 Eos # (Auto) Not Reportable 08/16/21 11:40 Baso # (Auto) Not Reportable 08/16/21 11:40 Absolute Nucleated RBC Not Reportable 08/16/21 11:40 Total Counted 100 08/16/21 11:40 Band Neuts % (Manual) 3 % (0-10) 08/16/21 11:40 Reactive Lymphs % (Man) 5 % 08/16/21 11:40 Abnorm Lymph % (Manual) 0 % 08/16/21 11:40 Metamyelocytes % 3 % (-0) H 08/16/21 11:40 Myelocytes % 3 % (-0) H 08/13/21 05:15 Nucleated RBC % Not Reportable 08/16/21 11:40 Neutrophils # (Manual) 17.3 10^3/uL (1.5-6.6) H 08/16/21 11:40 Lymphocytes # (Manual) 2.0 10^3/uL (1.5-3.5) 08/16/21 11:40 Monocytes # (Manual) 2.0 10^3/uL (0.0-1.0) H 08/16/21 11:40 Eosinophils # (Manual) 0.5 10^3/uL (0-0.7) 08/16/21 11:40 Basophils # (Manual) 0.0 10^3/uL (0-0.1) 08/16/21 11:40 Differential Comment MANUAL DIFFERENTIAL 08/16/21 11:40 Manual Slide Review Indicated 08/16/21 11:40 WBC Morphology NORMAL APPEARANCE (NORMAL) 08/16/21 05:10 Platelet Estimate NORMAL (130-450,000) (NORMAL) 08/16/21 11:40 Platelet Morphology NORMAL APPEARANCE (NORMAL) 08/16/21 11:40 RBC Morph Micro Appear NORMAL APPEARANCE (NORMAL) 08/16/21 11:40 D-Dimer > 1050.0 ng/mL (200.0-255.0) H 08/14/21 11:00 Bld Gas Analysis Time 0614 08/16/21 06:05 Sample Site A-LINE 08/16/21 06:05 ABG pH 7.38 (7.35-7.45) 08/16/21 06:05 ABG pCO2 46 mmHg (34-45) H 08/16/21 06:05 ABG pO2 136 mmHg (80-100) H 08/16/21 06:05 ABG HCO3 26.4 mmol/L (22.0-26.0) H 08/16/21 06:05 ABG Total CO2 27.8 MMOL/L (21.0-29.0) 08/16/21 06:05 ABG O2 Saturation 99 % (94-98) H 08/16/21 06:05 ABG Base Excess 0.8 mmol/L (-2.0-3.0) 08/16/21 06:05 Benny Test NOT APPLICABLE 08/16/21 06:05 VBG pH 7.360 (7.31-7.41) 08/13/21 05:15 Ionized Calcium 1.15 mmol/L (1.15-1.33) 08/13/21 05:15 Respiration Rate 23 b/min 08/16/21 06:05 O2 Delivery Device VENTILATOR 08/16/21 06:05 O2 Liters/Min 55.00 LPM 08/11/21 09:40 Vent Mode ASSIST/CONTROL 08/16/21 06:05 FiO2 90.00 08/16/21 06:05 Tidal Volume 450 mL 08/16/21 06:05 PEEP 15 cmH2O 08/16/21 06:05 EPAP 8 cmH2O 08/12/21 09:04 IPAP 10 cmH2O 08/12/21 09:04 Sodium 137 mmol/L (135-145) 08/16/21 11:40 Potassium 4.2 mmol/L (3.5-5.0) 08/16/21 11:40 Chloride 98 mmol/L (101-111) L 08/16/21 11:40 Carbon Dioxide 28 mmol/L (21-32) 08/16/21 11:40 Anion Gap 11.0 (6-13) 08/16/21 11:40 BUN 32 mg/dL (6-20) H 08/16/21 11:40 Creatinine 0.7 mg/dL (0.6-1.2) 08/16/21 11:40 Estimated GFR (MDRD) 112 (>89) 08/16/21 11:40 Glucose 122 mg/dL (70-100) H 08/16/21 11:40 Calcium 8.3 mg/dL (8.5-10.3) L 08/16/21 11:40 Phosphorus 3.2 mg/dL (2.5-4.6) 08/16/21 11:40 Magnesium 3.0 mg/dL (1.7-2.8) H 08/16/21 11:40 Total Bilirubin 0.8 mg/dL (0.2-1.0) 08/15/21 05:40 Direct Bilirubin 0.3 mg/dL (0.1-0.5) 08/14/21 05:00 AST 46 IU/L (10-42) H 08/15/21 05:40 ALT 54 IU/L (10-60) 08/15/21 05:40 Alkaline Phosphatase 75 IU/L (42-121) 08/15/21 05:40 Troponin I High Sens 9.0 ng/L (2.3-19.7) 08/15/21 05:40 C-Reactive Protein 26.6 mg/dL (0-1.0) H 08/06/21 12:05 B-Natriuretic Peptide 51 pg/mL (5-100) 08/06/21 12:05 Total Protein 6.6 g/dL (6.7-8.2) L 08/15/21 05:40 Albumin 2.5 g/dL (3.2-5.5) L 08/15/21 05:40 Globulin 4.1 g/dL (2.1-4.2) 08/15/21 05:40 Albumin/Globulin Ratio 0.6 (1.0-2.2) L 08/15/21 05:40 Prealbumin 20 mg/dL (18-45) 08/15/21 05:40 Triglycerides 198 mg/dL (-149) H 08/13/21 05:15 Lipase 35 U/L (22-51) 08/06/21 12:05 Urine Color DARK YELLOW 08/07/21 05:50 Urine Clarity CLEAR (CLEAR) 08/07/21 05:50 Urine pH 6.0 PH (5.0-7.5) 08/07/21 05:50 Ur Specific [place] 1.025 (1.002-1.030) 08/07/21 05:50 Urine Protein 100 mg/dL (NEGATIVE) H 08/07/21 05:50 Urine Glucose (UA) NEGATIVE mg/dL (NEGATIVE) 08/07/21 05:50 Urine Ketones 15 mg/dL (NEGATIVE) H 08/07/21 05:50 Urine Occult Blood SMALL (NEGATIVE) H 08/07/21 05:50 Urine Nitrite NEGATIVE (NEGATIVE) 08/07/21 05:50 Urine Bilirubin NEGATIVE (NEGATIVE) 08/07/21 05:50 Urine Urobilinogen 1 (NORMAL) E.U./dL (NORMAL) 08/07/21 05:50 Ur Leukocyte Esterase NEGATIVE (NEGATIVE) 08/07/21 05:50 Urine RBC 6-10 /HPF (0-5) H 08/07/21 05:50 Urine WBC 0-3 /HPF (0-3) 08/07/21 05:50 Ur Squamous Epith Cells RARE Squamous (<= Few) 08/07/21 05:50 Urine Bacteria Few /HPF (None Seen) 08/07/21 05:50 Urine Culture Comments NOT INDICATED 08/07/21 05:50 Nasal Screen MRSA (PCR) NEGATIVE (NEGATIVE) 08/07/21 01:46
[2021-08-16] MEDS: CHOLECALCIFEROL 5,000 UNIT CAPSULE PO SCH (18:21)
[2021-08-16] MEDS ORDERED: ZINC OXIDE 20% OINT 30 GM TUBE TOP PRN (22:08)
[2021-08-16] MEDS ORDERED: fentaNYL 250 MCG/5 ML VIAL IVP ONE (22:08)
[2021-08-16] MEDS ORDERED: fentaNYL 100 MCG/2 ML VIAL ONE (22:44)
[2021-08-17] MEDS: SODIUM CHLORIDE FLUSH 0.9% 10 ML SYRINGE IVP SCH ×3 (00:35→18:30)
[2021-08-17] MEDS: SODIUM CHLORIDE 0.9% 500 ML IV PRN (00:36)
[2021-08-17] MEDS: PROPOFOL 500 MG/50 ML 500 MG/50 ML VIAL IV SCH ×5 (01:00→09:48)
[2021-08-17] MEDS: VANCOMYCIN INJ 1.75 GM in SODIUM CHLORIDE 0.9% 500 ML IV SCH (02:12)
[2021-08-17] MEDS: metroNIDAZOLE 500 MG/100 ML 500 MG/100 ML BAG IV SCH ×3 (02:30→18:29)
[2021-08-17] MEDS: CEFEPIME 2 GM in SODIUM CHLORIDE 0.9% MINIBAG 100 ML IV SCH ×3 (04:46→21:00)
[2021-08-17 06:00] LABS: BASOPHILS % (AUTO) 0.8 %; EOSINOPHILS % (AUTO) 0.6 %; HCT - HEMATOCRIT 44.7 % (42.0-52.0); HGB - HEMOGLOBIN 14.3 g/dL (14.0-18.0); LYMPHOCYTES % (AUTO) 4.6 %; MEAN CORPUSCULAR HEMOGLOBIN 28.6 pg (27.0-31.0); MEAN CORPUSCULAR VOLUME 89.4 fL (80.0-94.0); MEAN PLATELET VOLUME 12.2 fL (7.4-11.4); MONOCYTES % (AUTO) 8.6 %; NEUTROPHILS % (AUTO) 74.3 %; PLT - PLATELET COUNT 280 10^3/uL (130-450); WHITE BLOOD COUNT 23.1 x10^3/uL (4.8-10.8)
[2021-08-17 06:07] LABS: ABG HCO3 29.4 mmol/L (22.0-26.0); ABG OXYGEN SATURATION 98 % (94-98); ABG PCO2 53 mmHg (34-45); ABG PH 7.36 (7.35-7.45); ABG PO2 110 mmHg (80-100)
[2021-08-17 06:08] LABS: ABG MODE OF VENTILATION ASSIST/CONTROL; ABG RESPIRATORY RATE 23 b/min
[2021-08-17 06:10] LABS: ABNORMAL LYMPHS % (MANUAL) 0 %
[2021-08-17 06:13] LABS: CALCIUM 8.2 mg/dL (8.5-10.3); CREATININE 0.7 mg/dL (0.6-1.2); POTASSIUM 4.4 mmol/L (3.5-5.0)
[2021-08-17 06:24] LABS: BAND NEUTROPHILS % (MANUAL) 2 %; LYMPHOCYTES # (MANUAL) 0.9 10^3/uL (1.5-3.5); LYMPHOCYTES % (MANUAL) 4 %; MONOCYTES # (MANUAL) 0.7 10^3/uL (0.0-1.0); MYELOCYTES % (MANUAL) 6 %; NEUTROPHILS # (MANUAL) 20.1 10^3/uL (1.5-6.6)
[2021-08-17 06:26] LABS: DIFFERENTIAL COMMENT MANUAL DIFFERENTIAL; PLATELET ESTIMATE, MANUAL NORMAL (130-450,000) (NORMAL); PLATELET MORPHOLOGY NORMAL APPEARANCE (NORMAL); RBC MORPHOLOGY (MULTIPLE) NORMAL APPEARANCE (NORMAL); WBC MORPHOLOGY (MULTIPLE) NORMAL APPEARANCE (NORMAL)
[2021-08-17] MEDS: ENOXAPARIN 150 MG/ML SYRINGE SUBQ SCH ×2 (09:47→21:00)
[2021-08-17] MEDS: CHLORHEXIDINE GLUCONATE 15 ML UDC PO SCH ×2 (09:48→21:00)
[2021-08-17] MEDS ORDERED: DEXMEDETOMIDINE 400 MCG in SODIUM CHLORIDE 0.9% 100ML 96 ML IV SCH (12:00)
[2021-08-17] MEDS ORDERED: DEXMEDETOMIDINE 400 MCG/100 ML 100 ML IV SCH (12:00)
[2021-08-17] MEDS ORDERED: DEXMEDETOMIDINE 200 MCG/2 ML VIAL ONE (12:53)
--- NOTE | 2021-08-17 14:21 | XRAY Report ---
PROCEDURE: Chest 1 View X-Ray INDICATIONS: intubated, COVID, PE, PNA TECHNIQUE: One view of the chest was acquired. COMPARISON: CT chest 08/15/2021 FINDINGS: Surgical changes and devices: Endotracheal tube is present proximal 4.3 cm superior to the murphy. Ri ght-sided central venous catheter is present with distal tip projecting over the proximal SVC. Lungs and pleura: Bilateral increased pulmonary opacities are present. Mediastinum: Mediastinal contours appear normal. Heart size is normal. Bones and chest wall: No suspicious bony lesions. Overlying soft tissues appear unremarkable. IMPRESSION: Increased pulmonary opacities suggestive of pneumonia, unchanged. Reviewed by: Ellie Mosher MD on 08/17/2021 2:19 PM PDT Approved by: Ellie Mosher MD on 08/17/2021 2:19 PM PDT Station ID: [id number]
[2021-08-17] MEDS: DEXMEDETOMIDINE 1,000 MCG in SODIUM CHLORIDE 0.9% 240 ML IV SCH (17:02)
--- NOTE | 2021-08-17 18:15 | PROVIDER PROGRESS NOTE ---
Assessment/Plan - Problem List (1) Acute respiratory failure with hypoxia Assessment/Plan: He had had worsening resp status during this admission felt to be secondary to COVID-19 pneumonia. Patient is currently intubated and sedated, he was intubated on 08/12/21. The last Chest x-ray today showed worsening consolidation and fluffy infiltrates. Central and arterial line in place and functioning well. Tube feeding are off for 2 days, due to aspiration (stomach contents were aspirated in pharynx). Will stop proning nightly. Continue to monitor ABG and adjust vent settings accordingly. Sedation was changed from Vecuronium and Propofol to Precedex and he was able to open eyes briefly. Getting Decadron , azithromycin done and finished Remdesivir. Lasix 40 mg IV daily was stopped Antibx were broadened when aspiration PNA was suspected. (2) Pneumonia due to COVID-19 virus Assessment/Plan: Patient is currently intubated and sedated. Intubated on 08/12/21 Continue to monitor sats and then intermittent ABG and adjust vent settings accordingly. Sedation was changed from Vecuronium and Propofol to Precedex and he was able to open eyes briefly. He is on Decadron, , azithromycin 3/3 completed and he finished a 5 day couse of Remdesivir. Now on Cefepime and Flagyl for PNA, due to suspected aspiration, and consolidation was seen on CT chest We started nightly proning of the patient every evening, done twice. Will stop due to aspration he probably has reflux. (3) Pulmonary embolism Assessment/Plan: His airway pressures went up and CTA done showed R sided pulm emboli. (Radiologist told me he has seen alot of PEs in COVID pts). He was already put on therapeutic Lovenox the evening before, for COVID toes. Will continue this treatment with Lovenox. (4) Aspiration pneumonia Assessment/Plan: Tube feeding are off 3 days due to aspiration (stomach contents were aspirated in pharynx). He probably has reflux. He is on Cefepime and FGlagyl for PNA, since consolidation was seen on CT chest. (5) Obstructive sleep apnea on CPAP Assessment/Plan: Now intubated as of 08/12/2021. (6) Morbid obesity with BMI of 40.0-44.9, adult Assessment/Plan: As per Hx. When I was updating the daughter and by phone today, the daughter mentioned that he has not slept on his stomach for years because of his morbid obesity (7) COVID toes Assessment/Plan: Resolved. This was noted by RN and thus a D-dimer was obtained and has increased substantially since admission (273>> >1050 ). These toes changes were likely due to hypercoagulable status of Covid. We started treatment with therapeutic Lovenox, not just prophylactic Lovenox; increased dose from 40 sq bid >> 130 sq bid. Watch for excessive bleeding. (8) Hx of traumatic brain injury Assessment/Plan: The daughter is at bedside today (allowed in because of his critical status) and reported that the patient is on disability from TBI and his baseline function is transferring from bed to wheelchair, he no longer walks. 9) Atrial fibrillation with controlled ventricular rate He developed A. fib, this was probably related to having acute PE and worsening infiltrate from aspiration, on top of Covid pneumonia. He has had 2 nights of Afib paroxysmal. The rate is controlled on current meds and management. He is on full dose anticoagulation using therapeutic Lovenox twice daily - Current Meds Current Meds: Current Medications Generic Name Dose Route Start Last Admin Trade Name Freq PRN Reason Stop Dose Admin Chlorhexidine Gluconate 15 ml 08/12/21 21:00 08/17/21 09:48 Chlorhexidine Gluconate 15 Ml Udc PO 15 ml BID SHAUN Administration Enoxaparin Sodium 130 mg 08/14/21 21:00 08/17/21 09:47 Enoxaparin 150 Mg/Ml Syringe SUBQ 130 mg BID SHAUN Administration Sodium Chloride 500 mls @ 20 mls/hr 08/14/21 16:33 08/17/21 00:36 Normal Saline 0.9% IV 20 mls/hr Q24H PRN Administration TKO RATE Cefepime HCl 2 gm/ Sodium 100 mls @ 200 mls/hr 08/15/21 13:00 08/17/21 15:09 Chloride IV Infused Q8H SHAUN Infusion Metronidazole 500 mg in 100 mls @ 100 mls/hr 08/16/21 11:00 08/17/21 15:09 Flagyl 500 Mg/100 Ml IV Infused Q8H SHAUN Infusion Dexmedetomidine HCl 1,000 mcg/ 250 mls @ 24.325 mls/hr 08/17/21 16:30 08/17/21 17:02 Sodium Chloride IV 0.5 mcg/kg/hr .[id number] [facility] 17.375 mls/hr Administration Protocol 0.7 MCG/KG/HR Multi-Ingredient Ointment 1 applic 08/16/21 22:08 08/16/21 22:54 Zinc Oxide 20% Oint 30 Gm Tube TOP 1 applic PRN PRN Administration Skin Care Sodium Chloride 10 ml 08/06/21 13:14 08/13/21 06:29 Sodium Chloride Flush 0.9% 10 Ml Syringe IVP 10 ml PRN PRN Administration NEEDED PER PROVIDER ORDERS Sodium Chloride 10 ml 08/07/21 01:00 08/17/21 13:52 Sodium Chloride Flush 0.9% 10 Ml Syringe IVP 10 ml 0100,0900,1700 [facility] Administration - Lab Result Fish Bone Diagrams: 08/17/21 05:45 08/18/21 04:45 - Additional Planning My Orders: My Active Orders 08/17/21 11:36 Miscellaenous Nursing Order [RC] ONCE 08/17/21 11:37 Miscellaenous Nursing Order [RC] ONCE 08/17/21 16:30 Sodium Chloride 0.9% [Normal Saline 0.9%] 240 ml Dexmedetomidine [Precedex] 1,000 mcg IV 0.7 mcg/kg/hr 08/17/21 19:00 Trace Elements [Tralement Vial] 1 ml Multivitamin [Infuvite] 10 ml TPN (C linimix E 5/15) [Clinimix E 5%-15% Solution] 2,000 ml IV 1900 08/18/21 05:00 BMP - BASIC METABOLIC PANEL [CHEM] DAILYLAB 08/19/21 05:00 BMP - BASIC METABOLIC PANEL [CHEM] DAILYLAB 08/20/21 05:00 BMP - BASIC METABOLIC PANEL [CHEM] DAILYLAB Subjective - Subjective Nursing Reports: Other (sedated on the vent) Objective Vital Signs: Vital Signs - 24 hr 08/16/21 08/16/21 08/16/21 19:00 20:00 21:00 Temperature 37.3 C Heart Rate Heart Rate [ 96 88 92 Monitoring electrodes] Respiratory 23 23 23 Rate Blood Pressure 204/106 H 159/81 H 181/91 H [Left Brachial artery] Blood Pressure 162/78 H 151/73 H 172/80 H [Right Radial artery] O2 Saturation 95 94 95 08/16/21 08/16/21 08/16/21 21:18 22:00 23:00 Temperature Heart Rate 74 Heart Rate [ 100 93 Monitoring electrodes] Respiratory 23 23 Rate Blood Pressure 183/81 H 146/90 H [Left Brachial artery] Blood Pressure 183/81 H 140/72 H [Right Radial artery] O2 Saturation 95 94 08/17/21 08/17/21 08/17/21 00:00 00:22 01:00 Temperature 37.0 C Heart Rate 78 Heart Rate [ 94 101 H Monitoring electrodes] Respiratory 23 23 Rate Blood Pressure 155/86 H 184/95 H [Left Brachial artery] Blood Pressure 135/73 H 170/76 H [Right Radial artery] O2 Saturation 94 94 08/17/21 08/17/21 08/17/21 02:00 03:00 03:33 Temperature Heart Rate 86 Heart Rate [ 107 H 104 H Monitoring electrodes] Respiratory 23 23 Rate Blood Pressure 185/96 H 184/88 H [Left Brachial artery] Blood Pressure 167/75 H [Right Radial artery] O2 Saturation 94 93 08/17/21 08/17/21 08/17/21 04:00 05:00 06:00 Temperature 36.8 C Heart Rate Heart Rate [ 94 94 100 Monitoring electrodes] Respiratory 23 23 23 Rate Blood Pressure 174/87 H 176/90 H 182/86 H [Left Brachial artery] Blood Pressure 167/75 H 172/75 H 166/74 H [Right Radial artery] O2 Saturation 94 95 96 08/17/21 08/17/21 08/17/21 06:14 07:00 07:46 Temperature Heart Rate 86 84 Heart Rate [ 98 Monitoring electrodes] Respiratory 23 Rate Blood Pressure 169/89 H [Left Brachial artery] Blood Pressure 164/76 H [Right Radial artery] O2 Saturation 95 08/17/21 08/17/21 08/17/21 08:00 09:00 10:00 Temperature 36.9 C Heart Rate Heart Rate [ 100 80 74 Monitoring electrodes] Respiratory 23 23 23 Rate Blood Pressure 135/68 H 100/62 102/66 [Left Brachial artery] Blood Pressure 155/68 H 100/55 L 111/57 L [Right Radial artery] O2 Saturation 95 97 98 08/17/21 08/17/21 08/17/21 11:00 11:33 12:00 Temperature Heart Rate 77 Heart Rate [ 75 80 Monitoring electrodes] Respiratory 23 23 Rate Blood Pressure 114/67 115/69 [Left Brachial artery] Blood Pressure 132/64 H 132/61 H [Right Radial artery] O2 Saturation 98 97 08/17/21 08/17/21 08/17/21 13:00 14:00 15:00 Temperature Heart Rate Heart Rate [ 87 71 62 Monitoring electrodes] Respiratory 23 23 23 Rate Blood Pressure 126/76 115/70 96/53 L [Left Brachial artery] Blood Pressure 137/63 H 122/61 102/59 L [Right Radial artery] O2 Saturation 96 94 94 08/17/21 08/17/21 08/17/21 15:32 16:00 17:00 Temperature Heart Rate 62 Heart Rate [ 62 64 Monitoring electrodes] Respiratory 23 26 H Rate Blood Pressure 120/59 L 140/76 H [Left Brachial artery] Blood Pressure 120/73 138/61 H [Right Radial artery] O2 Saturation 96 93 Oxygen O2 Source Mechanical ventilator Oxygen Flow Rate 15 I&O (Last 24 Hrs): Intake and Output Totals x24h 08/15/21 08/16/21 08/17/21 23:59 23:59 23:59 Intake Total 2210.848 2613.988 1240.672 Output Total 1184 1380 853 Balance 8491.399 5758.988 387.672 General: Other (sedated, intubated) HEENT: Mucous membr. moist/pink Neck: Supple Neuro: Other (sedated) Cardiovascular: Regular rate Respiratory: No respiratory distress (on the vent) Abdomen: Other (Obese with pannus) Extremities: Other (trace edema) - Results Results: Laboratory Results WBC 23.1 x10^3/uL (4.8-10.8) H 08/17/21 05:45 RBC 5.00 10^6/uL (4.70-6.10) 08/17/21 05:45 Hgb 14.3 g/dL (14.0-18.0) 08/17/21 05:45 Hct 44.7 % (42.0-52.0) 08/17/21 05:45 MCV 89.4 fL (80.0-94.0) 08/17/21 05:45 MCH 28.6 pg (27.0-31.0) 08/17/21 05:45 MCHC 32.0 g/dL (32.0-36.0) 08/17/21 05:45 RDW 16.0 % (12.0-15.0) H 08/17/21 05:45 Plt Count 280 10^3/uL (130-450) 08/17/21 05:45 MPV 12.2 fL (7.4-11.4) H 08/17/21 05:45 Neut # (Auto) Not Reportable 08/17/21 05:45 Lymph # (Auto) Not Reportable 08/17/21 05:45 [place] # (Auto) Not Reportable 08/17/21 05:45 Eos # (Auto) Not Reportable 08/17/21 05:45 Baso # (Auto) Not Reportable 08/17/21 05:45 Absolute Nucleated RBC Not Reportable 08/17/21 05:45 Total Counted 100 08/17/21 05:45 Band Neuts % (Manual) 2 % (0-10) 08/17/21 05:45 Reactive Lymphs % (Man) 5 % 08/16/21 11:40 Abnorm Lymph % (Manual) 0 % 08/17/21 05:45 Metamyelocytes % 3 % (-0) H 08/16/21 11:40 Myelocytes % 6 % (-0) H 08/17/21 05:45 Nucleated RBC % Not Reportable 08/17/21 05:45 Neutrophils # (Manual) 20.1 10^3/uL (1.5-6.6) H 08/17/21 05:45 Lymphocytes # (Manual) 0.9 10^3/uL (1.5-3.5) L 08/17/21 05:45 Monocytes # (Manual) 0.7 10^3/uL (0.0-1.0) 08/17/21 05:45 Eosinophils # (Manual) 0.0 10^3/uL (0-0.7) 08/17/21 05:45 Basophils # (Manual) 0.0 10^3/uL (0-0.1) 08/17/21 05:45 Differential Comment MANUAL DIFFERENTIAL 08/17/21 05:45 Manual Slide Review Indicated 08/16/21 11:40 WBC Morphology NORMAL APPEARANCE (NORMAL) 08/17/21 05:45 Platelet Estimate NORMAL (130-450,000) (NORMAL) 08/17/21 05:45 Platelet Morphology NORMAL APPEARANCE (NORMAL) 08/17/21 05:45 RBC Morph Micro Appear NORMAL APPEARANCE (NORMAL) 08/17/21 05:45 D-Dimer > 1050.0 ng/mL (200.0-255.0) H 08/14/21 11:00 Bld Gas Analysis Time 0607 08/17/21 05:50 Sample Site A-LINE 08/17/21 05:50 ABG pH 7.36 (7.35-7.45) 08/17/21 05:50 ABG pCO2 53 mmHg (34-45) H 08/17/21 05:50 ABG pO2 110 mmHg (80-100) H 08/17/21 05:50 ABG HCO3 29.4 mmol/L (22.0-26.0) H 08/17/21 05:50 ABG Total CO2 31.0 MMOL/L (21.0-29.0) H 08/17/21 05:50 ABG O2 Saturation 98 % (94-98) 08/17/21 05:50 ABG Base Excess 4.0 mmol/L (-2.0-3.0) H 08/17/21 05:50 Benny Test NOT APPLICABLE 08/17/21 05:50 VBG pH 7.360 (7.31-7.41) 08/13/21 05:15 Ionized Calcium 1.15 mmol/L (1.15-1.33) 08/13/21 05:15 Respiration Rate 23 b/min 08/17/21 05:50 O2 Delivery Device VENTILATOR 08/17/21 05:50 O2 Liters/Min 55.00 LPM 08/11/21 09:40 Vent Mode ASSIST/CONTROL 08/17/21 05:50 FiO2 80.00 08/17/21 05:50 Tidal Volume 450 mL 08/17/21 05:50 PEEP 15 cmH2O 08/17/21 05:50 EPAP 8 cmH2O 08/12/21 09:04 IPAP 10 cmH2O 08/12/21 09:04 Sodium 139 mmol/L (135-145) 08/17/21 05:45 Potassium 4.4 mmol/L (3.5-5.0) 08/17/21 05:45 Chloride 104 mmol/L (101-111) 08/17/21 05:45 Carbon Dioxide 27 mmol/L (21-32) 08/17/21 05:45 Anion Gap 8.0 (6-13) 08/17/21 05:45 BUN 33 mg/dL (6-20) H 08/17/21 05:45 Creatinine 0.7 mg/dL (0.6-1.2) 08/17/21 05:45 Estimated GFR (MDRD) 112 (>89) 08/17/21 05:45 Glucose 154 mg/dL (70-100) H 08/17/21 05:45 Calcium 8.2 mg/dL (8.5-10.3) L 08/17/21 05:45 Phosphorus 3.2 mg/dL (2.5-4.6) 08/16/21 11:40 Magnesium 3.0 mg/dL (1.7-2.8) H 08/16/21 11:40 Total Bilirubin 0.8 mg/dL (0.2-1.0) 08/15/21 05:40 Direct Bilirubin 0.3 mg/dL (0.1-0.5) 08/14/21 05:00 AST 46 IU/L (10-42) H 08/15/21 05:40 ALT 54 IU/L (10-60) 08/15/21 05:40 Alkaline Phosphatase 75 IU/L (42-121) 08/15/21 05:40 Troponin I High Sens 9.0 ng/L (2.3-19.7) 08/15/21 05:40 C-Reactive Protein 26.6 mg/dL (0-1.0) H 08/06/21 12:05 B-Natriuretic Peptide 51 pg/mL (5-100) 08/06/21 12:05 Total Protein 6.6 g/dL (6.7-8.2) L 08/15/21 05:40 Albumin 2.5 g/dL (3.2-5.5) L 08/15/21 05:40 Globulin 4.1 g/dL (2.1-4.2) 08/15/21 05:40 Albumin/Globulin Ratio 0.6 (1.0-2.2) L 08/15/21 05:40 Prealbumin 20 mg/dL (18-45) 08/15/21 05:40 Triglycerides 260 mg/dL (-149) H 08/17/21 05:45 Lipase 35 U/L (22-51) 08/06/21 12:05 Urine Color DARK YELLOW 08/07/21 05:50 Urine Clarity CLEAR (CLEAR) 08/07/21 05:50 Urine pH 6.0 PH (5.0-7.5) 08/07/21 05:50 Ur Specific [place] 1.025 (1.002-1.030) 08/07/21 05:50 Urine Protein 100 mg/dL (NEGATIVE) H 08/07/21 05:50 Urine Glucose (UA) NEGATIVE mg/dL (NEGATIVE) 08/07/21 05:50 Urine Ketones 15 mg/dL (NEGATIVE) H 08/07/21 05:50 Urine Occult Blood SMALL (NEGATIVE) H 08/07/21 05:50 Urine Nitrite NEGATIVE (NEGATIVE) 08/07/21 05:50 Urine Bilirubin NEGATIVE (NEGATIVE) 08/07/21 05:50 Urine Urobilinogen 1 (NORMAL) E.U./dL (NORMAL) 08/07/21 05:50 Ur Leukocyte Esterase NEGATIVE (NEGATIVE) 08/07/21 05:50 Urine RBC 6-10 /HPF (0-5) H 08/07/21 05:50 Urine WBC 0-3 /HPF (0-3) 08/07/21 05:50 Ur Squamous Epith Cells RARE Squamous (<= Few) 08/07/21 05:50 Urine Bacteria Few /HPF (None Seen) 08/07/21 05:50 Urine Culture Comments NOT INDICATED 08/07/21 05:50 Nasal Screen MRSA (PCR) NEGATIVE (NEGATIVE) 08/07/21 01:46
[2021-08-17] MEDS: MULTIVITAMIN IV SCH ×3 (18:29)
[2021-08-17] MEDS: TPN IV SCH ×3 (18:29)
[2021-08-17] MEDS: TRACE ELEMENTS IV SCH ×3 (18:29)
[2021-08-17] MEDS: VECURONIUM 100 MG in SODIUM CHLORIDE 0.9% 100ML 100 ML IV SCH (19:33)
[2021-08-18] MEDS: SODIUM CHLORIDE FLUSH 0.9% 10 ML SYRINGE IVP SCH ×3 (00:23→18:58)
[2021-08-18] MEDS: metroNIDAZOLE 500 MG/100 ML 500 MG/100 ML BAG IV SCH ×3 (03:06→18:57)
[2021-08-18] MEDS: CEFEPIME 2 GM in SODIUM CHLORIDE 0.9% MINIBAG 100 ML IV SCH ×3 (04:50→20:42)
[2021-08-18] MEDS: DEXMEDETOMIDINE 1,000 MCG in SODIUM CHLORIDE 0.9% 240 ML IV SCH ×3 (05:17→18:57)
[2021-08-18 05:25] LABS: ALBUMIN 2.2 g/dL (3.2-5.5); ALBUMIN/GLOBULIN RATIO 0.6 (1.0-2.2); BILIRUBIN,TOTAL 0.7 mg/dL (0.2-1.0); CALCIUM 8.2 mg/dL (8.5-10.3); CREATININE 0.8 mg/dL (0.6-1.2); MAGNESIUM 3.1 mg/dL (1.7-2.8); PHOSPHORUS 2.7 mg/dL (2.5-4.6); POTASSIUM 4.7 mmol/L (3.5-5.0); TOTAL PROTEIN 5.8 g/dL (6.7-8.2)
[2021-08-18] MEDS: SODIUM CHLORIDE 0.9% 500 ML IV PRN (06:12)
[2021-08-18 06:16] LABS: ABG BASE EXCESS 2.4 mmol/L (-2.0-3.0); ABG HCO3 27.9 mmol/L (22.0-26.0); ABG MODE OF VENTILATION ASSIST/CONTROL; ABG OXYGEN SATURATION 98 % (94-98); ABG PCO2 47 mmHg (34-45); ABG PO2 107 mmHg (80-100); ABG RESPIRATORY RATE 23 b/min; ABG TCO2 29.3 MMOL/L (21.0-29.0)
[2021-08-18] MEDS: ENOXAPARIN 150 MG/ML SYRINGE SUBQ SCH ×2 (08:24→20:44)
[2021-08-18] MEDS: CHLORHEXIDINE GLUCONATE 15 ML UDC PO SCH ×2 (11:10→20:44)
--- NOTE | 2021-08-18 12:43 | ADVANCE CARE PLANNING NOTE ---
Advance Care Planning - Planning Encounter Date: 08/18/21 Time: 11:45 Purpose: To speak with the and 2 daughters at bedside, after they saw him, and determine goals and direction of medical care. Parties in Attendance: This Hospitalist spoke with the pt's , his daughter Julianna and daughter Rylie, just outside of his ICU room. Decisional Capacity of the Patient: He is sedated, but was following directions like squeezing hands and opening eyes. He is not alert enough to be making decisions however. - Encounter Subjective/Patient's Story: The patient was admitted over a week ago with respiratory symptoms of Covid pneumonia and has subsequently needed intubation. He has also developed a bacterial (aspiration) pneumonia and pulmonary emboli. He is morbidly obese and has sleep apnea on CPAP at home. The states that he has repeatedly vocalized that he does not want to be on a machine or kept alive artificially. She says there are no paperwork to this effect. The daughter Carol had asked me previously if he signed any papers to request intubation because she also has heard that he never wanted to be a full code or be on a ventilator. We discussed that the intubation was decided with the previous Hospitalist, when he was getting worse. Objective/Medical Story: This is a 66-year-old white male with history ofOSA on CPAP, morbid obesity, Parox Afib since admission, Traumatic brain injury and his baseline function is to transfer from bed to wheelchair.Sedated against Covid with the [employer] vaccine but he and his got Covid. She did not need hospitalization. He was admitted over a week ago and required supplemental oxygen. He worsened and required intubation 1 week ago. Subsequent to that he has an aspiration pneumonia and right-sided pulmonary embolism and is being treated with antibiotics, therapeutic Lovenox and has finished remdesivir, is getting Decadron and continued ventilator support. He did not tolerate NG feeds, has reflux and was aspirating. Proning was tried for 2 nights which did help his pulmonary status but has to be stopped because of the significant reflux causing aspiration. Today the family requested that he be extubated because they saw him "shake his head No" when asked if he wanted the tube left in and to stay on the ventilator. I explained that he is had just before that told his RN that he wants to be on the ventilator, with the endotracheal tube in place, which is supporting his lungs and supporting him stay alive. Several minutes later when the family arrived he responded the alternate way. Through all of this today, he has been on low doses of Precedex and is not clinically able to make decisions. Goals of Care: The reiterated in detail that the patient never wanted to be on machines. We were able to find advance directives from the [facility] that do state he is not want to be supported on artificial feeding or artificial machines if his life appears to be terminal. I proposed that we wait another 24 hours and see what direction his ventilatory needs will be, especially now that he is more awake so he is able to assist with his ventilation and could therefore be extubated potentially. The family agreed to regroup in 24 hours, I will give them an update and we will make decisions then to continue with aggressive medical management including the ventilator or to start Comfort measures and extubate him. Plan: Continue with maximal medical management as we are doing currently. Reassess his clinical situation in 24 hours, midday tomorrow. Code Status: Attempt Resuscitation Time spent on advance care plannin min
--- NOTE | 2021-08-18 13:35 | PROVIDER PROGRESS NOTE ---
Assessment/Plan - Problem List (1) Acute respiratory failure with hypoxia Assessment/Plan: He had had worsening resp status during this admission felt to be secondary to COVID-19 pneumonia. Patient is currently intubated and sedated, he was intubated on 08/12/21, today is day #7. Sedation was changed from Vecuronium and Propofol to Precedex and he was able to open eyes briefly. Today the family requested that he be extubated, because "that is what he always said". Will check if [facility] has any Advanced Directives. Tube feeding are off for 2 days, due to aspiration (stomach contents were aspirated in pharynx). Will stop proning nightly. Will consider tpn for nutrition. Continue to monitor ABG and adjust vent settings accordingly. Continue Decadron , azithromycin done and finished Remdesivir. Antibx were broadened when aspiration PNA was suspected. (2) Pneumonia due to COVID-19 virus Assessment/Plan: Patient is currently intubated and sedated. Intubated on 08/12/21 Continue to monitor sats and then intermittent ABG and adjust vent settings accordingly. Sedation was changed from Vecuronium and Propofol to Precedex yesterday and he was able to open eyes briefly. Today he was following "squeeze" commands and nodding as communication with his family in room ( and 2 daughters). He is on Decadron, azithromycin 3/3 completed and he finished a 5 day couse of Remdesivir. Now on Cefepime and Flagyl for PNA, due to suspected aspiration, and consolidation was seen on CT chest We started nightly proning of the patient every evening, done for two nights. We stopped proning yesterday evening due to aspiration. The family confirmed to me that he has "bad reflux". (3) Pulmonary embolism Assessment/Plan: His airway pressures went up several days ago and CTA was done and showed R sided pulm emboli. (Radiologist told me he has seen alot of PEs in COVID pts). He was already put on therapeutic Lovenox the evening before, for COVID toes. Will continue this treatment with Lovenox. (4) Aspiration pneumonia Assessment/Plan: Tube feeding are off 3 days due to aspiration (stomach contents were aspirated in pharynx). He probably has reflux. He is on Cefepime and Flagyl for PNA, since consolidation was seen on CTA chest. (5) Obstructive sleep apnea on CPAP Assessment/Plan: Now intubated as of 08/12/2021. (6) Morbid obesity with BMI of 40.0-44.9, adult Assessment/Plan: As per Hx. When I was updating the daughter and previously, the daughter mentioned that he has not slept on his stomach for years because of his morbid obesity (7) Atrial fibrillation with controlled ventricular rate He developed A. fib, this was probably related to having acute PE and worsening infiltrate from aspiration, on top of Covid pneumonia. He has had 2 nights of Afib paroxysmal. The rate is controlled on current meds and management. He is on full dose anticoagulation using therapeutic Lovenox twice daily (8) Hx of traumatic brain injury Assessment/Plan: The daughter is at bedside today (allowed in because of his critical status) and reported that the patient is on disability from TBI and his baseline function is transferring from bed to wheelchair, he no longer walks. (9) COVID toes Assessment/Plan: Resolved. This was noted by RN and thus a D-dimer was obtained and has increased sub stantially since admission (273>> >1050 ). These toes changes were likely due to hypercoagulable status of Covid. We started treatment with therapeutic Lovenox, not just prophylactic Lovenox; increased dose from 40 sq bid >> 130 sq bid. Watch for excessive bleeding - Current Meds Current Meds: Current Medications Generic Name Dose Route Start Last Admin Trade Name Freq PRN Reason Stop Dose Admin Chlorhexidine Gluconate 15 ml 08/12/21 21:00 08/18/21 11:10 Chlorhexidine Gluconate 15 Ml Udc PO 15 ml BID SHAUN Administration Enoxaparin Sodium 130 mg 08/14/21 21:00 08/18/21 08:24 Enoxaparin 150 Mg/Ml Syringe SUBQ 130 mg BID SHAUN Administration Sodium Chloride 500 mls @ 20 mls/hr 08/14/21 16:33 08/18/21 06:12 Normal Saline 0.9% IV 20 mls/hr Q24H PRN Administration TKO RATE Cefepime HCl 2 gm/ Sodium 100 mls @ 200 mls/hr 08/15/21 13:00 08/18/21 05:54 Chloride IV Infused Q8H SHAUN Infusion Metronidazole 500 mg in 100 mls @ 100 mls/hr 08/16/21 11:00 08/18/21 11:10 Flagyl 500 Mg/100 Ml IV 100 mls/hr Q8H SHAUN Administration TRACE ELEMENTS 1 ml/ 2,011 mls @ 83 mls/hr 08/17/21 19:00 08/17/21 18:29 Multivitamins 10 ml/ Amino Ac/ IV 83 mls/hr Electrol/Dextrose/Calcium 1900 SHAUN Administration Dexmedetomidine HCl 1,000 mcg/ 250 mls @ 24.325 mls/hr 08/17/21 16:30 08/18/21 06:13 Sodium Chloride IV 0.6 mcg/kg/hr .[id number] SHAUN 20.85 mls/hr Administration Protocol 0.7 MCG/KG/HR Multi-Ingredient Ointment 1 applic 08/16/21 22:08 08/16/21 22:54 Zinc Oxide 20% Oint 30 Gm Tube TOP 1 applic PRN PRN Administration Skin Care Sodium Chloride 10 ml 08/06/21 13:14 08/13/21 06:29 Sodium Chloride Flush 0.9% 10 Ml Syringe IVP 10 ml PRN PRN Administration NEEDED PER PROVIDER ORDERS Sodium Chloride 10 ml 08/07/21 01:00 08/18/21 11:10 Sodium Chloride Flush 0.9% 10 Ml Syringe IVP 10 ml 0100,0900,1700 SHAUN Administration - Lab Result Fish Bone Diagrams: 08/17/21 05:45 08/18/21 04:45 - Additional Planning My Orders: My Active Orders 08/17/21 16:30 Sodium Chloride 0.9% [Normal Saline 0.9%] 240 ml Dexmedetomidine [Precedex] 1,000 mcg IV 0.7 mcg/kg/hr 08/17/21 19:00 Trace Elements [Tralement Vial] 1 ml Multivitamin [Infuvite] 10 ml TPN (Clinimix E 5/15) [Clinimix E 5%-15% Solution] 2,000 ml IV 1900 08/18/21 06:10 RT - Obtain Arterial Specimen [RC] .ONCE 08/19/21 05:00 BMP - BASIC METABOLIC PANEL [CHEM] DAILYLAB 08/20/21 05:00 BMP - BASIC METABOLIC PANEL [CHEM] DAILYLAB Subjective - Subjective Nursing Reports: Other (For his daytime nurse, he opened his eyes to command, squeezed appropriately, was able to shake his head yes and no to answers, is on a light Precedex drip.) Objective Vital Signs: Vital Signs - 24 hr 08/17/21 08/17/21 08/17/21 14:00 15:00 15:32 Temperature Heart Rate 62 Heart Rate [ 71 62 Monitoring electrodes] Respiratory 23 23 Rate Blood Pressure 115/70 96/53 L [Left Brachial artery] Blood Pressure 122/61 102/59 L [Right Radial artery] O2 Saturation 94 94 08/17/21 08/17/21 08/17/21 16:00 17:00 18:00 Temperature Heart Rate Heart Rate [ 62 64 59 L Monitoring electrodes] Respiratory 23 26 H 23 Rate Blood Pressure 120/59 L 140/76 H 119/69 [Left Brachial artery] Blood Pressure 120/73 138/61 H 124/59 L [Right Radial artery] O2 Saturation 96 93 94 08/17/21 08/17/21 08/17/21 19:00 19:25 20:00 Temperature 37.2 C Heart Rate 57 L Heart Rate [ 56 L 59 L Monitoring electrodes] Respiratory 25 H 23 Rate Blood Pressure 95/61 133/70 H [Left Brachial artery] Blood Pressure 101/51 L 126/58 L [Right Radial artery] O2 Saturation 93 95 08/17/21 08/17/21 08/17/21 21:00 22:00 22:45 Temperature Heart Rate 67 Heart Rate [ 60 59 L Monitoring electrodes] Respiratory 25 H 24 Rate Blood Pressure 123/64 136/79 H [Left Brachial artery] Blood Pressure 117/54 L 141/63 H [Right Radial artery] O2 Saturation 95 94 08/17/21 08/18/21 08/18/21 23:00 00:00 01:00 Temperature 37.6 C Heart Rate Heart Rate [ 52 L 62 56 L Monitoring electrodes] Respiratory 24 26 H 23 Rate Blood Pressure 137/76 H 144/79 H 115/66 [Left Brachial artery] Blood Pressure 132/59 H 152/66 H 148/61 H [Right Radial artery] O2 Saturation 94 94 95 08/18/21 08/18/21 08/18/21 01:20 02:00 03:00 Temperature Heart Rate 62 Heart Rate [ 53 L 53 L Monitoring electrodes] Respiratory 23 23 Rate Blood Pressure 123/69 136/79 H [Left Brachial artery] Blood Pressure 131/56 H 138/59 H [Right Radial artery] O2 Saturation 94 95 08/18/21 08/18/21 08/18/21 03:40 04:00 05:00 Temperature 37.3 C Heart Rate 56 L Heart Rate [ 54 L 54 L Monitoring electrodes] Respiratory 23 23 Rate Blood Pressure 137/77 H 114/60 [Left Brachial artery] Blood Pressure 131/56 H 127/54 L [Right Radial artery] O2 Saturation 94 94 08/18/21 08/18/21 08/18/21 05:40 06:00 07:00 Temperature Heart Rate 52 L Heart Rate [ 57 L 52 L Monitoring electrodes] Respiratory 23 28 H Rate Blood Pressure 137/66 H 141/70 H [Left Brachial artery] Blood Pressure 135/56 H 152/65 H [Right Radial artery] O2 Saturation 94 94 08/18/21 08/18/21 08/18/21 07:30 08:00 09:00 Temperature 38.3 C H Heart Rate 62 Heart Rate [ 55 L 66 Monitoring electrodes] Respiratory 26 H 31 H Rate Blood Pressure 165/74 H [Left Brachial artery] Blood Pressure 134/58 H 164/66 H [Right Radial artery] O2 Saturation 93 95 08/18/21 08/18/21 08/18/21 10:00 10:38 11:00 Temperature Heart Rate 71 Heart Rate [ 61 67 Monitoring electrodes] Respiratory 28 H 28 H Rate Blood Pressure 136/72 H 147/71 H [Left Brachial artery] Blood Pressure 142/60 H 153/64 H [Right Radial artery] O2 Saturation 94 95 08/18/21 08/18/21 12:00 13:00 Temperature 35.5 C L Heart Rate Heart Rate [ 74 79 Monitoring electrodes] Respiratory 28 H 27 H Rate Blood Pressure 151/76 H 157/80 H [Left Brachial artery] Blood Pressure 158/68 H 157/65 H [Right Radial artery] O2 Saturation 97 95 Oxygen O2 Source Mechanical ventilator Oxygen Flow Rate 15 I&O (Last 24 Hrs): Intake and Output Totals x24h 08/16/21 08/17/21 08/18/21 23:59 23:59 23:59 Intake Total 2613.988 1511.620 979.052 Output Total 1380 1218 855 Balance 1233.988 293.620 124.052 General: Other (sedated on the vent) HEENT: Mucous membr. moist/pink Neck: Other (Obese) Neuro: Other (sedated) Cardiovascular: Regular rate Respiratory: No respiratory distress (on the vent) Abdomen: Other (Obese with pannus) Extremities: Other (trace edema) - Results Results: Laboratory Results WBC 23.1 x10^3/uL (4.8-10.8) H 08/17/21 05:45 RBC 5.00 10^6/uL (4.70-6.10) 08/17/21 05:45 Hgb 14.3 g/dL (14.0-18.0) 08/17/21 05:45 Hct 44.7 % (42.0-52.0) 08/17/21 05:45 MCV 89.4 fL (80.0-94.0) 08/17/21 05:45 MCH 28.6 pg (27.0-31.0) 08/17/21 05:45 MCHC 32.0 g/dL (32.0-36.0) 08/17/21 05:45 RDW 16.0 % (12.0-15.0) H 08/17/21 05:45 Plt Count 280 10^3/uL (130-450) 08/17/21 05:45 MPV 12.2 fL (7.4-11.4) H 08/17/21 05:45 Neut # (Auto) Not Reportable 08/17/21 05:45 Lymph # (Auto) Not Reportable 08/17/21 05:45 [place] # (Auto) Not Reportable 08/17/21 05:45 Eos # (Auto) Not Reportable 08/17/21 05:45 Baso # (Auto) Not Reportable 08/17/21 05:45 Absolute Nucleated RBC Not Reportable 08/17/21 05:45 Total Counted 100 08/17/21 05:45 Band Neuts % (Manual) 2 % (0-10) 08/17/21 05:45 Reactive Lymphs % (Man) 5 % 08/16/21 11:40 Abnorm Lymph % (Manual) 0 % 08/17/21 05:45 Metamyelocytes % 3 % (-0) H 08/16/21 11:40 Myelocytes % 6 % (-0) H 08/17/21 05:45 Nucleated RBC % Not Reportable 08/17/21 05:45 Neutrophils # (Manual) 20.1 10^3/uL (1.5-6.6) H 08/17/21 05:45 Lymphocytes # (Manual) 0.9 10^3/uL (1.5-3.5) L 08/17/21 05:45 Monocytes # (Manual) 0.7 10^3/uL (0.0-1.0) 08/17/21 05:45 Eosinophils # (Manual) 0.0 10^3/uL (0-0.7) 08/17/21 05:45 Basophils # (Manual) 0.0 10^3/uL (0-0.1) 08/17/21 05:45 Differential Comment MANUAL DIFFERENTIAL 08/17/21 05:45 Manual Slide Review Indicated 08/16/21 11:40 WBC Morphology NORMAL APPEARANCE (NORMAL) 08/17/21 05:45 Platelet Estimate NORMAL (130-450,000) (NORMAL) 08/17/21 05:45 Platelet Morphology NORMAL APPEARANCE (NORMAL) 08/17/21 05:45 RBC Morph Micro Appear NORMAL APPEARANCE (NORMAL) 08/17/21 05:45 D-Dimer > 1050.0 ng/mL (200.0-255.0) H 08/14/21 11:00 Bld Gas Analysis Time 0608 08/18/21 06:00 Sample Site A-LINE 08/18/21 06:00 ABG pH 7.40 (7.35-7.45) 08/18/21 06:00 ABG pCO2 47 mmHg (34-45) H 08/18/21 06:00 ABG pO2 107 mmHg (80-100) H 08/18/21 06:00 ABG HCO3 27.9 mmol/L (22.0-26.0) H 08/18/21 06:00 ABG Total CO2 29.3 MMOL/L (21.0-29.0) H 08/18/21 06:00 ABG O2 Saturation 98 % (94-98) 08/18/21 06:00 ABG Base Excess 2.4 mmol/L (-2.0-3.0) 08/18/21 06:00 Benny Test NOT APPLICABLE 08/18/21 06:00 VBG pH 7.360 (7.31-7.41) 08/13/21 05:15 Ionized Calcium 1.15 mmol/L (1.15-1.33) 08/13/21 05:15 Respiration Rate 23 b/min 08/18/21 06:00 O2 Delivery Device VENTILATOR 08/18/21 06:00 O2 Liters/Min 55.00 LPM 08/11/21 09:40 Vent Mode ASSIST/CONTROL 08/18/21 06:00 FiO2 80.00 08/18/21 06:00 Tidal Volume 450 mL 08/18/21 06:00 PEEP 15 cmH2O 08/18/21 06:00 EPAP 8 cmH2O 08/12/21 09:04 IPAP 10 cmH2O 08/12/21 09:04 Sodium 142 mmol/L (135-145) 08/18/21 04:45 Potassium 4.7 mmol/L (3.5-5.0) 08/18/21 04:45 Chloride 109 mmol/L (101-111) 08/18/21 04:45 Carbon Dioxide 28 mmol/L (21-32) 08/18/21 04:45 Anion Gap 5.0 (6-13) L 08/18/21 04:45 BUN 38 mg/dL (6-20) H 08/18/21 04:45 Creatinine 0.8 mg/dL (0.6-1.2) 08/18/21 04:45 Estimated GFR (MDRD) 96 (>89) 08/18/21 04:45 Glucose 187 mg/dL (70-100) H 08/18/21 04:45 Calcium 8.2 mg/dL (8.5-10.3) L 08/18/21 04:45 Phosphorus 2.7 mg/dL (2.5-4.6) 08/18/21 04:45 Magnesium 3.1 mg/dL (1.7-2.8) H 08/18/21 04:45 Total Bilirubin 0.7 mg/dL (0.2-1.0) 08/18/21 04:45 Direct Bilirubin 0.3 mg/dL (0.1-0.5) 08/14/21 05:00 AST 31 IU/L (10-42) 08/18/21 04:45 ALT 32 IU/L (10-60) 08/18/21 04:45 Alkaline Phosphatase 55 IU/L (42-121) 08/18/21 04:45 Troponin I High Sens 9.0 ng/L (2.3-19.7) 08/15/21 05:40 C-Reactive Protein 26.6 mg/dL (0-1.0) H 08/06/21 12:05 B-Natriuretic Peptide 51 pg/mL (5-100) 08/06/21 12:05 Total Protein 5.8 g/dL (6.7-8.2) L 08/18/21 04:45 Albumin 2.2 g/dL (3.2-5.5) L 08/18/21 04:45 Globulin 3.6 g/dL (2.1-4.2) 08/18/21 04:45 Albumin/Globulin Ratio 0.6 (1.0-2.2) L 08/18/21 04:45 Prealbumin 20 mg/dL (18-45) 08/15/21 05:40 Triglycerides 260 mg/dL (-149) H 08/17/21 05:45 Lipase 35 U/L (22-51) 08/06/21 12:05 Urine Color DARK YELLOW 08/07/21 05:50 Urine Clarity CLEAR (CLEAR) 08/07/21 05:50 Urine pH 6.0 PH (5.0-7.5) 08/07/21 05:50 Ur Specific [place] 1.025 (1.002-1.030) 08/07/21 05:50 Urine Protein 100 mg/dL (NEGATIVE) H 08/07/21 05:50 Urine Glucose (UA) NEGATIVE mg/dL (NEGATIVE) 08/07/21 05:50 Urine Ketones 15 mg/dL (NEGATIVE) H 08/07/21 05:50 Urine Occult Blood SMALL (NEGATIVE) H 08/07/21 05:50 Urine Nitrite NEGATIVE (NEGATIVE) 08/07/21 05:50 Urine Bilirubin NEGATIVE (NEGATIVE) 08/07/21 05:50 Urine Urobilinogen 1 (NORMAL) E.U./dL (NORMAL) 08/07/21 05:50 Ur Leukocyte Esterase NEGATIVE (NEGATIVE) 08/07/21 05:50 Urine RBC 6-10 /HPF (0-5) H 08/07/21 05:50 Urine WBC 0-3 /HPF (0-3) 08/07/21 05:50 Ur Squamous Epith Cells RARE Squamous (<= Few) 08/07/21 05:50 Urine Bacteria Few /HPF (None Seen) 08/07/21 05:50 Urine Culture Comments NOT INDICATED 08/07/21 05:50 Nasal Screen MRSA (PCR) NEGATIVE (NEGATIVE) 08/07/21 01:46
[2021-08-18] MEDS: MULTIVITAMIN IV SCH ×3 (18:58)
[2021-08-18] MEDS: TPN IV SCH ×3 (18:58)
[2021-08-18] MEDS: TRACE ELEMENTS IV SCH ×3 (18:58)
[2021-08-18] MEDS: MORPHINE 2 MG/ML CARPUJECT IVP PRN (21:49)
[2021-08-18] MEDS ORDERED: ACETAMINOPHEN 325 MG TABLET PO PRN (22:06)
[2021-08-18] MEDS ORDERED: ACETAMINOPHEN 1,000 MG/100 ML 100 ML IV PRN (22:37)
[2021-08-19] MEDS: MORPHINE 2 MG/ML CARPUJECT IVP PRN ×6 (00:29→14:35)
[2021-08-19] MEDS: SODIUM CHLORIDE FLUSH 0.9% 10 ML SYRINGE IVP SCH ×2 (00:29→08:58)
[2021-08-19] MEDS: metroNIDAZOLE 500 MG/100 ML 500 MG/100 ML BAG IV SCH ×2 (02:57→10:55)
[2021-08-19] MEDS: DEXMEDETOMIDINE 1,000 MCG in SODIUM CHLORIDE 0.9% 240 ML IV SCH ×2 (05:03→12:30)
[2021-08-19] MEDS: CEFEPIME 2 GM in SODIUM CHLORIDE 0.9% MINIBAG 100 ML IV SCH ×2 (05:04→14:15)
[2021-08-19 05:35] LABS: CREATININE 0.9 mg/dL (0.6-1.2); POTASSIUM 4.9 mmol/L (3.5-5.0)
[2021-08-19] MEDS: SODIUM CHLORIDE 0.9% 500 ML IV PRN (07:15)
[2021-08-19] MEDS: ENOXAPARIN 150 MG/ML SYRINGE SUBQ SCH (09:00)
[2021-08-19] MEDS: CHLORHEXIDINE GLUCONATE 15 ML UDC PO SCH (09:10)
--- NOTE | 2021-08-19 09:49 | XRAY Report ---
PROCEDURE: Chest 1 View X-Ray INDICATIONS: F/U COVID pneumonia and aspiration pneumonia TECHNIQUE: One view of the chest was acquired. COMPARISON: August 17, 2021 FINDINGS: SUPPORT DEVICES: The endotracheal tube projects 2.7 cm from the murphy. Redemonstrated right IJ central venous catheter. LUNGS/PLEURA: Redemonstrated bilateral airspace opacities, grossly unchanged. No pleural effusion or pneumothorax. MEDIASTINUM: The cardiomediastinal silhouette is within normal limits. BONES/SOFT TISSUES: No acute abnormality. IMPRESSION: 1.No significant interval change. Reviewed by: Subhash Newton MD on 08/19/2021 9:47 AM PDT Approved by: Subhash Newton MD on 08/19/2021 9:47 AM PDT Station ID: [id number]
[2021-08-19] MEDS ORDERED: SODIUM CHLORIDE 0.9% IV ONE (12:30)
[2021-08-19] MEDS ORDERED: CALCIUM CHLORIDE ABBOJECT IV ONE (12:30)
[2021-08-19] MEDS ORDERED: GLYCOPYRROLATE 1 MG/5 ML VIAL SUBQ PRN (12:32)
[2021-08-19] MEDS ORDERED: HALOPERIDOL 5 MG/ML VIAL SUBQ PRN (12:32)
[2021-08-19] MEDS ORDERED: LORazepam 2 MG/ML VIAL IVP PRN (12:32)
[2021-08-19] MEDS ORDERED: HALOPERIDOL 5 MG/ML VIAL IVP PRN (12:32)
[2021-08-19] MEDS ORDERED: ATROPINE 1% OPHTH DROPS 2 ML SL PRN (12:32)
[2021-08-19] MEDS ORDERED: SCOPOLAMINE PATCH TOP SCH (13:00)
[2021-08-19 13:50] VITALS: BP 161/68
--- NOTE | 2021-08-19 16:49 | DISCHARGE SUMMARY ---
Discharge Summary Discharge Date: 08/19/21 Discharging Provider: Dr Tammy Diaz Primary Care Provider: Dr Robles, [place] Discharge Disposition: 20 - HPI History of Present Illness: Patient is a 66-year-old morbidly obese male with medical history significant for traumatic brain injury in the past who presented to the ED with complaint of dyspnea and weakness. He has been having symptoms consistent with COVID-19 infection. This include difficulty breathing, minimally productive cough, loss of smell, loss of taste and generalized weakness over the past 4-5 days. He finally came to the ED today because he was unable to get up from bed. He was vaccinated with [employer] vaccine. He had been diagnosed with COVID-19 for a few days now. His is also sick with Covid at home. In the ED he required 15 L on a nonrebreather to maintain his oxygen around 92%. He had a chest x-ray done which showed bilateral pulmonary infiltrates and small bilateral pleural effusions. He was presented for admission for further tr eatment. Upon arrival to [facility] floor the patient's oxygen saturation was in the 70s% despite being on 15 L of oxygen via non-rebreather mask. As a result he was immediately switched to high flow nasal cannula. - HOSPITAL COURSE Hospital Course: (1) Acute respiratory failure with hypoxia He had worsening respiratory status during this admission felt to be secondary to COVID-19 pneumonia. Patient required escalating supplemental O2 and was intubated, sedated and put on the ventilator on 08/12/21. He was also treated for consolidation pneumonia and for acute pulmonary emboli (see below). Sedation was changed from Vecuronium and Propofol to Precedex on 08/17/21, and he was able to open eyes, follow "squeeze" commands, and nodded in communication with his and 2 daughters in the room. The family requested that he be extubated on 08/18/21, knowing that he did not want "to be on machines". [facility], which were obtained and reviewed. After successfully trying de- escalating the ventilator with CPAP trials the next day, the family was offered to still try usual vent weaning for him on 08/19/21, but they decided to make him a DNR and again requested that he be extubated with focus on Comfort Care. He was extubated, kept on comfort meds and on 08/19/21, with family members all at his bedside. (2) Pneumonia due to COVID-19 virus He received a 5 day course of Remdesivir, was on Decadron iv daily. Patient required escalating supplemental O2 and was intubated, sedated and put on the ventilator on 08/12/21. Proning was done for 2 nights and helped his pulmonary status slightly. He received several days of ng tube feeds. Sedation was changed from Vecuronium and Propofol to Precedex and he was able to open eyes, then he was following "squeeze" commands and nodding in communication with and 2 daughters in the room. They requested extubation and comfort measures (as described above). (3) COVID toes Several dark purple toes were noted thus a D-dimer was obtained and had increased substantially since admission (273>> >1050). The toes changes were felt to be due to hypercoagulable status of Covid. He was started on therapeutic Lovenox twice daily, increased from once daily prophylactic dose Lovenox. The dark toes improved by the following day. (4) Pulmonary embolism His airway pressures on the vent went up suddenly several times and a CTA chest was done and showed several R sided pulm emboli. Radiologist noted that he has seen alot of PEs in COVID pts. The patient had been put on therapeutic Lovenox twice daily the day before, for COVID toes, which was continued. (5) Aspiration pneumonia He has received Zithromax empirically. His RN later reported probable a spiration, since stomach contents were suctioned from his pharynx. Family confirmed he had reflux. He was put on iv Cefepime and iv Flagyl for the pneumonia, since consolidation was also seen on CTA chest. (6) Obstructive sleep apnea on CPAP As per Hx. He was intubated as of with pressure support. (7) Morbid obesity with BMI of 40.0-44.9, adult As per Hx. His BMI was 44.9 kg/m2. (8) Atrial fibrillation with controlled ventricular rate He developed paroxysmal A. fib, which was probably related to having acute PE and worsening infiltrate, on top of his Covid pneumonia. He has had 2 nights of Afib paroxysmal. The rate was controlled on meds and he was on full dose anticoagulation using therapeutic Lovenox twice daily (9) Hx of traumatic brain injury The daughter Carol described that due to TBI, his baseline function was transferring from bed to wheelchair, he no longer walked. - ALLERGIES Allergies/Adverse Reactions: Allergies Allergy/AdvReac Type Severity Reaction Status Date / Time codeine Allergy Intermediate Unknown Verified 08/06/21 11:46 - MEDICATIONS Home Medications: Ambulatory Orders Medication Instructions Recorded Confirmed Omeprazole [PriLOSEC] 20 mg PO DAILY 01/31/14 08/06/21 - LABS Result Diagrams: 08/17/21 05:45 08/19/21 05:00
== END 2021-08-19 15:03 | disposition expired | DRG 207 ==
LOC: EDUNIT# → EDSEX → ED 11:29 → MS2 13:14 → ICU 08-07 01:41
PROVIDERS: ADMIT Internal Medicine; ATTEND Internal Medicine
PROC: XW033E5 Introduction of Remdesivir Anti-infective into Peripheral Vein, Percutaneous Approach, New Technology Group 5 (ICD-10-PCS; principal; 2021-08-06)
PROC: 3E0333Z Introduction of Anti-inflammatory into Peripheral Vein, Percutaneous Approach (ICD-10-PCS; 2021-08-06)
PROC: 5A1955Z Respiratory Ventilation, Greater than 96 Consecutive Hours (ICD-10-PCS; 2021-08-12)
PROC: 0BH17EZ Insertion of Endotracheal Airway into Trachea, Via Natural or Artificial Opening (ICD-10-PCS; 2021-08-12)
PROC: 02HV33Z Insertion of Infusion Device into Superior Vena Cava, Percutaneous Approach (ICD-10-PCS; 2021-08-12)
DX: U07.1 COVID-19 (principal); J12.82 Pneumonia due to coronavirus disease 2019; J96.01 Acute respiratory failure with hypoxia; J69.0 Pneumonitis due to inhalation of food and vomit; I26.99 Other pulmonary embolism without acute cor pulmonale; D68.8 Other specified coagulation defects; Z68.41 Body mass index [BMI] 40.0-44.9, adult; J90 Pleural effusion, not elsewhere classified; N17.9 Acute kidney failure, unspecified; L99 Other disorders of skin and subcutaneous tissue in diseases classified elsewhere; G47.33 Obstructive sleep apnea (adult) (pediatric); E66.01 Morbid (severe) obesity due to excess calories; I48.0 Paroxysmal atrial fibrillation; Z87.820 Personal history of traumatic brain injury; R42 Dizziness and giddiness; Z66 Do not resuscitate; R74.8 Abnormal levels of other serum enzymes; M54.9 Dorsalgia, unspecified; G89.29 Other chronic pain; R00.1 Bradycardia, unspecified
CPT/HCPCS: 36415; 36600; 71045; 71275; 80048; 80053; 80076; 81001; 82330; 82803; 83690; 83735; 83880; 84100; 84134; 84478; 84484; 85025; 85379; 86140; 87150; 94002; 94003; 94660; 96374; 99284; 99285; A9270; J0131; J1650; J2060; J2690; J3370; J3490; Q9967; 80202; 87086; 94770